=== PATIENT | female | born 1965 | race Caucasian/White ===

== ENCOUNTER 2020-06-24 07:42 | Outpatient (REF) | payer OTHER, SELFPAY | END 2020-06-24 07:43 | disposition home or self-care (01) | LOC: HO.LAB 07:42 | PROVIDERS: Visit Provider Internal Medicine | DX: Z20.828 Contact with and (suspected) exposure to other viral communicable diseases (principal) | CPT/HCPCS: C9803; U0003 ==

== ENCOUNTER 2020-06-27 13:28 | Outpatient (REF) | payer OTHER, SELFPAY ==
[2020-06-27 13:42] LABS: COVID-19 Test Positive (Negative); IDNOW Serial# 55D5AD1C
== END 2020-06-27 13:29 | disposition home or self-care (01) ==
LOC: HO.EMPCOV 13:28
PROVIDERS: Visit Provider Internal Medicine
DX: Z20.828 Contact with and (suspected) exposure to other viral communicable diseases (principal)
CPT/HCPCS: 36415; 87635; C9803

== ENCOUNTER 2020-11-29 14:26 | Outpatient (REF) | payer OTHER, SELFPAY | END 2020-11-29 14:27 | disposition home or self-care (01) | LOC: HO.LAB 14:26 | PROVIDERS: PCP Internal Medicine; Referring Provider Internal Medicine; Visit Provider Obstetrics & Gynecology | DX: N95.0 Postmenopausal bleeding (principal) | CPT/HCPCS: 58100; 88305 ==

== ENCOUNTER → 2020-12-13 15:58 | Outpatient (BNVA) | payer OTHER, SELFPAY | PROVIDERS: PCP Internal Medicine; Visit Provider Obstetrics & Gynecology ==

== ENCOUNTER 2021-01-15 15:14 | Outpatient (REF) | payer OTHER, SELFPAY ==
[2021-01-15 16:44] LABS: MANUAL DIFF FLAG NO
[2021-01-15 16:47] LABS: Basophils Absolute Auto 0.1 X10*3/uL (0.0-0.2); Basophils Percent Auto 0.9 % (0-2); Eosinophils Absolute Auto 0.1 X10*3/uL (0.0-0.4); Eosinophils Percent Auto 1.2 % (0-4); Hemoglobin 9.4 g/dl (12.0-16.0); Imm Gran Abs Auto 0.02 X10*3/uL (0.00-0.03); Imm Gran Pct Auto 0.3 % (0.0-0.4); Lymphocytes Absolute Auto 1.5 X10*3/uL (1.2-4.9); Lymphocytes Percent Auto 25.7 % (20-40); Mean Corpuscular HGB Conc 30.3 g/dl (31.0-35.0); Mean Corpuscular Hemoglobin 22.4 pg (27.0-33.0); Mean Platelet Volume 9.6 fL (9.4-12.3); Monocytes Absolute Auto 0.4 X10*3/uL (0.1-1.2); Monocytes Percent Auto 7.3 % (2-11); Neutrophils Absolute Auto 3.8 X10*3/uL (2.0-8.3); Neutrophils Percent Auto 64.6 % (45-73); Platelet Count 427 X10*3/uL (160-400); Red Blood Count 4.19 X10*6/uL (4.20-5.50); Red Cell Distribution Width 16.7 % (11.0-16.0); White Blood Count 5.9 X10*3/uL (4.8-10.8)
[2021-01-15 16:55] LABS: Estimated Average Glucose 108 mg/dL; Hemoglobin A1c % 5.4 %
[2021-01-15 16:57] LABS: Alanine Aminotransferase 15 U/L (0-31); Albumin Level 4.1 g/dL (3.5-5.0); Alkaline Phosphatase 75 U/L (39-117); Anion Gap 12 (12-20); Aspartate Amino Transferase 19 U/L (5-31); Bilirubin Total 0.2 mg/dL (0.0-1.0); Blood Urea Nitrogen 9 mg/dL (9-16); Calcium 9.1 mg/dL (8.4-10.2); Carbon Dioxide 25 mmol/L (22-29); Chloride 108 mmol/L (96-108); Estimated Glomerular Filt Rate > 60; Glucose Random 100 mg/dL (60-115); Potassium 4.3 mmol/L (3.3-5.1); Sodium 141 mmol/L (135-145); Total Protein 7.1 g/dL (6.5-8.0)
[2021-01-15 17:17] LABS: Free T4 (Free Thyroxine) 0.96 ng/dL (0.71-1.85); Thyroid Stimulating Hormone 0.79 uIU/mL (0.32-4.0)
== END 2021-01-15 15:15 | disposition home or self-care (01) ==
LOC: HO.MANLDS 15:14
PROVIDERS: PCP Internal Medicine; Visit Provider Physician Assistant
DX: G43.909 Migraine, unspecified, not intractable, without status migrainosus (principal)
CPT/HCPCS: 36415; 80053; 83036; 84439; 84443; 85025

== ENCOUNTER 2021-01-18 07:17 | Outpatient (REF) | payer OTHER, SELFPAY ==
--- NOTE | ~2021-01-18 | XR_ITS ---
EXAMINATION: XR CERVICAL SPINE CLINICAL INFORMATION: Cervicalgia. Occipital neuralgia. COMPARISON: None TECHNIQUE: 6 views of the cervical spine, inclusive of flexion and extension views, were obtained. FINDINGS: No abnormal prevertebral soft tissue swelling is seen. There is some mild disc space narrowing noted at the C5-C6 and C6-C7 levels. No acute cervical spine fracture identified. There is some anterior neural foraminal encroachment from spurring of the joints of [place] on the right at the C5-C6 level and on the left at the C5-C6 level. XR/XR cervical spine min 6V IMPRESSION: Cervical spondylosis C5 through C7 as described. No cervical spine fracture or destructive bony lesion.
== END 2021-01-18 07:18 | disposition home or self-care (01) ==
LOC: HO.XRAY 07:17
PROVIDERS: PCP Internal Medicine; Visit Provider Physician Assistant
DX: M54.2 Cervicalgia (principal)
CPT/HCPCS: 72052

== ENCOUNTER 2021-02-13 07:24 | Outpatient (REF) | payer OTHER, SELFPAY ==
--- NOTE | ~2021-02-13 | CT_ITS ---
EXAMINATION: CT HEAD WITHOUT CONTRAST CLINICAL INFORMATION: Migraine. COMPARISON: None TECHNIQUE: Contiguous axial imaging was performed from the skull base to vertex without intravenous administration of contrast. Coronal and sagittal reformatted images were obtained. This CT examination was performed using dose optimization techniques as appropriate, variously including the following: *Automated exposure control *Adjustment of mA and/or kV according to patient size (this includes techniques or standardized protocols for targeted exams where dose is matched to indication/reason for exam; i.e. extremities or head) *Use of iterative reconstruction technique DLP: 7:30 mGy-cm FINDINGS: There is no evidence of acute intracranial hemorrhage or territorial infarction. No abnormal mass effect or midline shift is seen. Mario to white matter differentiation is well preserved. No extra-axial fluid collections are identified. The ventricles are normal in size. There is no abnormal attenuation within the brain parenchyma. The osseous structures and soft tissues are normal. The mastoid air cells and visualized portions of the paranasal sinuses are well aerated. CT/CT head/brain wo con IMPRESSION: No acute intracranial pathology.
== END 2021-02-13 07:25 | disposition home or self-care (01) ==
LOC: HO.CT 07:24
PROVIDERS: PCP Internal Medicine; Visit Provider Physician Assistant
DX: G43.909 Migraine, unspecified, not intractable, without status migrainosus (principal)
CPT/HCPCS: 70450

== ENCOUNTER 2021-02-16 15:46 | Outpatient (REF) | payer OTHER, SELFPAY ==
--- NOTE | ~2021-02-16 | MM_ITS ---
EXAMINATION: MM SCREENING DIGITAL BREAST TOMOSYNTHESIS, BILATERAL CLINICAL INFORMATION: Screening. Asymptomatic. The lifetime risk of breast cancer based on the Tyrer-Cuzick Model is 10%. COMPARISON: Mammography: 01/21/2020, 11/18/2018, 11/13/2017 TECHNIQUE: Digital breast tomosynthesis is performed in both the craniocaudal and mediolateral oblique views along with computer-aided detection (CAD). Synthesized 2D images are generated from the tomosynthesis. FINDINGS: There are scattered areas of fibroglandular density (ACR BI-RADS breast composition Category b). There are fibrocystic changes in the bilateral outer quadrants, overall decreased since 2018. There is no interval dominant mass or architectural abnormality or developing density. No abnormal calcifications. The bilateral axilla and skin contours are unremarkable. MM/MM tomosynthesis screening BI IMPRESSION: No significant changes from prior exams. ASSESSMENT: BI-RADS 2: Benign RECOMMENDATION: Routine annual mammography screening. This patient's information was entered into a reminder system with a target due date for their next mammogram.
== END 2021-02-16 15:47 | disposition home or self-care (01) ==
LOC: HO.MAMMO 15:46
PROVIDERS: Visit Provider Internal Medicine
DX: Z12.31 Encounter for screening mammogram for malignant neoplasm of breast (principal)
CPT/HCPCS: 77063; 77067

== ENCOUNTER 2021-03-15 07:52 | Outpatient (REF) | payer OTHER, SELFPAY ==
--- NOTE | ~2021-03-15 | US_ITS ---
EXAMINATION: US ABDOMEN COMPLETE CLINICAL INFORMATION: Right upper quadrant pain. COMPARISON: Ultrasound abdomen complete 02/15/2015. TECHNIQUE: Real-time imaging of the abdominal viscera. FINDINGS: PANCREAS: Normal. ABDOMINAL AORTA: The proximal, mid, and distal segments are normal in caliber. INFERIOR VENA CAVA: Visualized portions are normal. LIVER: Normal. The liver is normal in size. The liver contour is normal. Parenchymal echogenicity is normal. No focal hepatic lesion. There is no intrahepatic biliary duct dilatation seen. GALLBLADDER: Normal. The gallbladder is physiologically distended without evidence of stones, sludge, polyps, wall thickening or pericholecystic fluid. COMMON BILE DUCT: Normal in caliber measuring 0.3 cm in diameter. RIGHT KIDNEY: Normal. No hydronephrosis. No renal calculi or focal parenchymal lesions. The kidney measures 11.4 cm in maximum dimension. LEFT KIDNEY: Normal. No hydronephrosis. No renal calculi or focal parenchymal lesions. The kidney measures 12.2 cm in maximum dimension. SPLEEN: Normal. The spleen measures 13.2 cm in maximum dimension. FREE FLUID: None. US/US abdomen complete IMPRESSION: Unremarkable abdominal ultrasound.
== END 2021-03-15 07:53 | disposition home or self-care (01) ==
LOC: HO.US 07:52
PROVIDERS: PCP Internal Medicine; Visit Provider Physician Assistant
DX: R10.11 Right upper quadrant pain (principal)
CPT/HCPCS: 76700

== ENCOUNTER 2021-05-29 07:00 | Outpatient (RCR) | payer OTHER, SELFPAY | END 2021-07-19 14:51 | disposition home or self-care (01) | LOC: HO.PT 07:00 | PROVIDERS: Visit Provider Physician Assistant | DX: M50.30 Other cervical disc degeneration, unspecified cervical region (principal) | CPT/HCPCS: 95992; 97012; 97014; 97035; 97110; 97140; 97162; 97530 ==

== ENCOUNTER 2021-09-03 08:00 | Outpatient (RCR) | payer OTHER, SELFPAY ==
--- NOTE | 2021-08-31 11:49 | MHC.PT.EP ---
[facility] [place] [facility] [place] [facility] [place] Office [address] [phone] F: [phone] F: [phone] F: [phone] F: [phone] Physical Therapy Plan of Care Date of Evaluation: Date of Surgery: Diagnosis: VERTIGO Assessment: GARLAND IS A PLEASANT 56 YO FEMALE WHO RETURNS TO US WITH EXACERBATION OF VERTIGO. UPON EXAM SHE DEMONSTRATES (+) STEPHANIE-HALPIKE FOR LEFT POSTERIOR CANAL WITH NEGATIVE RETESTING AFTER CRM. FUNCTIONAL LIMITATIONS INCLUDE DECREASED ABILITY TO DRIVE, WALK QUICKLY, TURN HEAD AND BODY RAPIDS, DECREASED ABILITY TO PERFORM HIGHER DEMAND HOMEMAKING TASKS. Frequency and Duration: The patient will be seen 2 X WEEK FOR 4 WEEKS Short Term Goals: 1. 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 I with HEP 2. Improve DGI to 20/24 3. Pt to be able to functionally move in all planes without provocation of dizziness and return to PLOF in 4 weeks 4. Pt to be educated on sx and indications to return to therapy when needed Treatment Plan: Modalities to reduce pain, spasms and effusion. Manual therapy to restore motion and function. Therapeutic exercise to improve strength and flexibility. Neuromuscular re-education for posture and balance. Therapeutic activities to return to functional activities of daily living. Electronically signed by: CAITLIN OSMAN PT, DPT Please sign and return to therapist. Thank you for your referral.
== END 2021-11-05 13:44 | disposition home or self-care (01) ==
LOC: HO.PT 08:00
PROVIDERS: Visit Provider Physician Assistant
DX: R42 Dizziness and giddiness (principal)
CPT/HCPCS: 95992; 97110; 97112; 97161

== ENCOUNTER 2021-11-06 05:02 | Emergency (ER) | payer OTHER, SELFPAY ==
--- NOTE | ~2021-11-06 | XR_ITS ---
EXAMINATION: XR CHEST CLINICAL INFORMATION: Chest pain COMPARISON: 08/13/2019 TECHNIQUE: Frontal view of the chest was obtained. FINDINGS: The lungs are well expanded. There is no focal consolidation, edema, or effusion. No pneumothorax. The cardiomediastinal silhouette is within normal limits. No acute osseous abnormality. XR/XR chest 1V IMPRESSION: No acute pulmonary finding.
--- NOTE | 2021-11-06 05:05 | ECG_ITS ---
Test Reason : chest pain Blood Pressure : / mmHG Vent. Rate : 071 BPM Atrial Rate : 071 BPM P-R Int : 160 ms QRS Dur : 074 ms QT Int : 374 ms P-R-T Axes : 053 016 025 degrees QTc Int : 406 ms Normal sinus rhythm Normal ECG When compared with ECG of 19-APR-2019 06:46, No significant change was found Referred By: Generic ED Physician Electronically Signed By:SUHA HUGHES
[2021-11-06 05:23] VITALS: BP 148/92; PULSE 74; RESP 18; TEMP 36.7; O2SAT 97; BMI 33.2
[2021-11-06 05:55] VITALS: BP 125/76; PULSE 68; RESP 15; TEMP 36.7; O2SAT 98
[2021-11-06 06:12] LABS: MANUAL DIFF FLAG NO
[2021-11-06 06:13] LABS: Basophils Absolute Auto 0.1 X10*3/uL (0.0-0.2); Eosinophils Absolute Auto 0.1 X10*3/uL (0.0-0.4); Eosinophils Percent Auto 0.8 % (0-4); Hematocrit 36.2 % (37.0-47.0); Hemoglobin 12.3 g/dl (12.0-16.0); Imm Gran Abs Auto 0.02 X10*3/uL (0.00-0.03); Imm Gran Pct Auto 0.3 % (0.0-0.4); Lymphocytes Absolute Auto 1.4 X10*3/uL (1.2-4.9); Lymphocytes Percent Auto 23.3 % (20-40); Mean Corpuscular Hemoglobin 27.7 pg (27.0-33.0); Mean Corpuscular Volume 81.5 fL (80.0-98.0); Mean Platelet Volume 9.2 fL (9.4-12.3); Monocytes Absolute Auto 0.6 X10*3/uL (0.1-1.2); Monocytes Percent Auto 9.3 % (2-11); Neutrophils Absolute Auto 3.9 x10*3/uL (2.0-8.3); Neutrophils Percent Auto 65.3 % (45-73); Platelet Count 327 X10*3/uL (160-400); Red Blood Count 4.44 X10*6/uL (4.20-5.50); Red Cell Distribution Width 13.2 % (11.0-16.0); White Blood Count 5.9 X10*3/uL (4.8-10.8)
[2021-11-06 06:25] LABS: Anion Gap 12 (12-20); Blood Urea Nitrogen 9 mg/dL (9-16); Calcium 9.3 mg/dL (8.4-10.2); Carbon Dioxide 24 mmol/L (22-29); Chloride 107 mmol/L (96-108); Creatinine Clr Calc Pharmacy 103.7; Estimated Glomerular Filt Rate > 60; Glucose Random 107 mg/dL (60-115); Potassium 4.2 mmol/L (3.3-5.1); Sodium 139 mmol/L (135-145)
[2021-11-06 06:32] LABS: Troponin-I High Sensitivity < 3.5 ng/L (<3.5-17.0)
[2021-11-06 07:29] VITALS: BP 130/54; PULSE 60; RESP 18; TEMP 36.5; O2SAT 97
--- NOTE | 2021-11-06 07:32 | PC.NURSE ---
Pt reports weeks of itermittent left sided cp. non radiating. correlates with decreased hr into 50's. pitting edema when standing only. ls cta. no pitting edema at this time. unlabored resp. skin pwd. nsr on monitor. doc corvi at bedside..
--- NOTE | 2021-11-06 07:45 | ED_ITS ---
HPI - Chest Pain General Chief Complaint: Chest Pain Stated Complaint: chest pain, low pulse Time Seen by Provider: 11/06/21 07:35 Source: patient Mode of arrival: ambulatory Limitations: no limitations History of Present Illness HPI narrative: this is a 56 years old female presented to the ED with a chief complaint chest pain for about 3 weeks , the pain is intermittent when comes last for few seconds to few minutes, the pain is not exertional. Patient also is complaining of that she has a low heart rate, but there is no syncope or near syncopal episode and she takes beta-fiordaliza. MD complaint: chest pain Onset (ago): week(s) (3) Timing of current episode: episodic Prior episodes: Yes Onset: during rest Pain location: substernal Pain radiation: none Quality: dull Relieving factors: nothing Exacerbating factors: nothing Associated symptoms: nausea Risk Factors Coronary artery disease risk factors: none Related Data Home Medications Medication Instructions Recorded Confirmed amlodipine 5 mg tablet 10 mg PO DAILY 11/29/20 08/21/21 atenolol 50 mg tablet 50 mg PO BID 11/29/20 08/21/21 fluticasone propionate 110 1 puff INHALATION DAILY 11/29/20 08/21/21 mcg/actuation HFA aerosol inhaler omeprazole 40 mg capsule,delayed 40 mg PO DAILY 11/29/20 08/21/21 release ferrous sulfate 325 mg PO 3XW 08/21/21 08/21/21 Allergies Allergy/AdvReac Type Severity Reaction Status Date / Time fentanyl [FENTANYL] Allergy Severe NAUSEA AND Verified 02/19/21 08:11 VOMITING-SEVERE, nausea and vomiting meperidine [From DEMEROL] Allergy Severe SEVERE N/V Verified 02/19/21 08:11 Sulfa (Sulfonamide Allergy Mild HIVES Verified 02/19/21 08:11 Antibiotics) [Sulfa (Sulfonamides)] scopolamine [SCOPOLAMINE] AdvReac Severe SEVERE Verified 02/19/21 08:11 BALANCE ISSUES Sulf-10 Allergy Unknown rash Uncoded 02/19/21 08:11 Review of Systems Constitutional: Constitutional: Reports no additional constitutional complaints Eyes: Eyes: Reports no additional eye complaints ENT: Reports system reviewed and no additional complaints, except as documented Cardiovascular: Cardiovascular: Reports no additional cardiovascular complaints Respiratory: Respiratory: Reports as per HPI and Reports no additional respiratory complaints Gastrointestinal: Gastrointestinal: Reports no additional gastrointestinal complaints Genitourinary: Genitourinary: Reports no additional female genitourinary complaints Neurologic: Reports system reviewed and no additional complaints, except as documented PMFSH Past Medical History Medical History Asthma GERD (gastroesophageal reflux disease) Hypertension IBS (irritable bowel syndrome) Surgical History H/O dilation and curettage Family History Family History Father Hypertension Father Heart abnormality Mother Alzheimer disease Social History Social History Alcohol intake: current Alcohol intake frequency: holidays/special occasions only Alcohol type: hard liquor Patient Tobacco Use Status: Never used Tobacco Use of substances other than those prescribed or required for medical reasons: No Advance Directives: No Physical Exam Vital Signs: Vital Signs: Last Vital Signs Temp 97.7 F 11/06/21 07:29 Pulse 60 11/06/21 07:29 Resp 18 11/06/21 07:29 BP 130/54 L 11/06/21 07:29 Pulse Ox 97 11/06/21 07:29 BMI result Body Mass Index 33.2 Const: General: cooperative, healthy appearing and comfortable Nutritional Appearance: average body habitus and well nourished Orientation/co nsciousness: patient oriented x3 HEENT: Head: Yes normal to inspection Ears: hearing grossly normal bilater ally General nose exam: Normal external nose present Face and sinus: Yes normal facial exam Mouth: Normal oral and palatal mucosa present Neck: Neck: Yes normal visual inspection, Yes full ROM and Yes no lymphadenopathy Thyroid: Thyroid normal Chest: Chest palpation & inspection: normal inspection of the chest Resp: Effort & Inspection: normal respiratory effort and able to speak in complete sentences Auscultation: clear to auscultation bilaterally Cardio: Jugular venous distension: no JVD Rate: regular rate Rhythm: regular rhythm GI: Inspection: Yes normal to inspection Palpation (GI): Soft to palpation, not firm, nontender and no guarding Skin: General skin exam: no rashes or lesions noted and elasticity normal Rashes: no rashes Neuro: General: patient oriented x3 Extrem: General: Yes normal to inspection, Yes full ROM, Yes capillary refill normal and Yes normal exam except as noted Course Reevaluation(s) Reevaluation #1: delta troponin is negative after weeks of chest pain at this point I think the patient can be discharged home . 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 Result diagrams: 11/06/21 06:05 11/06/21 06:05 Labs: Lab Results 11/06/21 11/06/21 11/06/21 Range/Units 06:05 06:05 06:05 WBC 5.9 (4.8-10.8) X10*3/uL RBC 4.44 (4.20-5.50) X10*6/uL Hgb 12.3 (12.0-16.0) g/dl Hct 36.2 L (37.0-47.0) % MCV 81.5 (80.0-98.0) fL MCH 27.7 (27.0-33.0) pg MCHC 34.0 (31.0-35.0) g/dl RDW 13.2 (11.0-16.0) % Plt Count 327 (160-400) X10*3/uL MPV 9.2 L (9.4-12.3) fL Immature Gran % (Auto) 0.3 (0.0-0.4) % Neut % (Auto) 65.3 (45-73) % Lymph % (Auto) 23.3 (20-40) % [place] % (Auto) 9.3 (2-11) % Eos % (Auto) 0.8 (0-4) % Baso % (Auto) 1.0 (0-2) % Lymph # (Auto) 1.4 (1.2-4.9) X10*3/uL [place] # (Auto) 0.6 (0.1-1.2) X10*3/uL Eos # (Auto) 0.1 (0.0-0.4) X10*3/uL Baso # (Auto) 0.1 (0.0-0.2) X10*3/uL Abs Immat Gran (auto) 0.02 (0.00-0.03) X10*3/uL Absolute Neuts (auto) 3.9 (2.0-8.3) x10*3/uL Absolute Nucleated RBC 0.000 (0.0-0.012) X10*3/uL Nucleated RBC % (auto) 0.0 (0.0-0.2) /100WBC Sodium 139 (135-145) mmol/L Potassium 4.2 (3.3-5.1) mmol/L Chloride 107 (96-108) mmol/L Carbon Dioxide 24 (22-29) mmol/L Anion Gap 12 (12-20) BUN 9 (9-16) mg/dL Creatinine 0.68 (0.5-1.4) mg/dL Estim Creat Clear Calc 103.7 Estimated GFR > 60 Random Glucose 107 (60-115) mg/dL Calcium 9.3 (8.4-10.2) mg/dL Troponin I High Sens < 3.5 (<3.5-17.0) ng/L 11/06/21 Range/Units 07:56 WBC (4.8-10.8) X10*3/uL RBC (4.20-5.50) X10*6/uL Hgb (12.0-16.0) g/dl Hct (37.0-47.0) % MCV (80.0-98.0) fL MCH (27.0-33.0) pg MCHC (31.0-35.0) g/dl RDW (11.0-16.0) % Plt Count (160-400) X10*3/uL MPV (9.4-12.3) fL Immature Gran % (Auto) (0.0-0.4) % Neut % (Auto) (45-73) % Lymph % (Auto) (20-40) % [place] % (Auto) (2-11) % Eos % (Auto) (0-4) % Baso % (Auto) (0-2) % Lymph # (Auto) (1.2-4.9) X10*3/uL [place] # (Auto) (0.1-1.2) X10*3/uL Eos # (Auto) (0.0-0.4) X10*3/uL Baso # (Auto) (0.0-0.2) X10*3/uL Abs Immat Gran (auto) (0.00-0.03) X10*3/uL Absolute Neuts (auto) (2.0-8.3) x10*3/uL Absolute Nucleated RBC (0.0-0.012) X10*3/uL Nucleated RBC % (auto) (0.0-0.2) /100WBC Sodium (135-145) mmol/L Potassium (3.3-5.1) mmol/L Chloride (96-108) mmol/L Carbon Dioxide (22-29) mmol/L Anion Gap (12-20) BUN (9-16) mg/dL Creatinine (0.5-1.4) mg/dL Estim Creat Clear Calc Estimated GFR Random Glucose (60-115) mg/dL Calcium (8.4-10.2) mg/dL Troponin I High Sens < 3.5 (<3.5-17.0) ng/L ECG Data ECG #1: Interpretation: Normal sinus rhythm rate is [address]-T changes Discharge Plan Discharge Clinical Impression: Chest pain Patient Disposition: Home, Self-Care Instructions: Chest Pain (DC) Additional Instructions: follow-up with Dr Morales return if you worse any concern Prescriptions: No Action ferrous sulfate 325 mg PO 3XW 0RF amlodipine 5 mg tablet 10 mg PO DAILY 0RF atenolol 50 mg tablet 50 mg PO BID 0RF omeprazole 40 mg capsule,delayed release(DR/EC) 40 mg PO DAILY 0RF Flovent HFA 110 mcg/actuation HFA aerosol inhaler 1 puff inhalation DAILY 0RF Referrals: Gus Morales MD [Physician] - Stand Alone Forms: Work/School Release
[2021-11-06 08:23] LABS: Troponin-I High Sensitivity < 3.5 ng/L (<3.5-17.0)
[2021-11-06 09:30] VITALS: BP 125/58; PULSE 60; RESP 18; O2SAT 98
== END 2021-11-06 09:41 | disposition home or self-care (01) ==
PROVIDERS: Emergency Provider Emergency Medicine; PCP Internal Medicine
DX: R07.89 Other chest pain (principal); R11.2 Nausea with vomiting, unspecified; Z79.899 Other long term (current) drug therapy
CPT/HCPCS: 36415; 71045; 80048; 84484; 85025; 93005; 99283; 99284

== ENCOUNTER → 2021-11-08 13:05 | Outpatient (BNVA) | payer OTHER, SELFPAY | PROVIDERS: PCP Internal Medicine; Visit Provider Nurse Practitioner Family | DX: R07.9 Chest pain, unspecified (principal) ==

== ENCOUNTER → 2021-11-14 07:50 | Outpatient (REF) | payer OTHER, SELFPAY ==
--- NOTE | 2021-11-14 07:58 | CA_ITS ---
Acquisition Time: 2021-11-14 08:33:22 Total Exercise Time: 00:06:14 Test Indications: cp Medications: see chart Protocol: STEPHANIE Max HR: 150 BPM 92% of Pred: 162 BPM Max BP: 148/082 mmHG Max Work Load: 7.3 METS Exercise stress test with exercise 6 min 14 sec of Stephanie protocol, achieving 93% MPHR, with mild to moderate shortness of breath, with Less than 1/10 Left chest discomfort at baseline which resolved with exercise, with isolated PACs, with normotensive response to exercise, without EKG changes meeting criteria for ischemia. In recovery her breathing improved quickly. Test reviewed [facility] Dr Vieyra. Referred By: Grace Collier Overread By: GRACE COLLIER
== END ==
LOC: HO.CARD 07:50
PROVIDERS: PCP Internal Medicine; Visit Provider Nurse Practitioner Family
DX: R07.9 Chest pain, unspecified (principal)
CPT/HCPCS: 93017

== ENCOUNTER → 2021-11-20 06:58 | Outpatient (REF) | payer OTHER, SELFPAY ==
--- NOTE | 2021-11-20 07:01 | HM_ITS ---
Conclusion: 1. Patient was monitored for total period of 1 day and 12 hours 2. Baseline was normal sinus rhythm with average heart of 76 beats per minute 3. No significant pauses or bradycardia noted 4. Total of 28 PACs accounting for 0.01% of total beats accounting for very rare PACs 5. No patient reported events MTDD
== END ==
LOC: HO.CARD 06:58
PROVIDERS: PCP Internal Medicine; Visit Provider Nurse Practitioner Family
DX: R07.9 Chest pain, unspecified (principal)
CPT/HCPCS: 93242

== ENCOUNTER 2021-12-27 08:23 | Outpatient (REF) | payer OTHER, SELFPAY | END 2021-12-27 08:24 | disposition home or self-care (01) | LOC: HO.LAB 08:23 | PROVIDERS: Visit Provider Obstetrics & Gynecology | DX: Z01.419 Encounter for gynecological examination (general) (routine) without abnormal findings (principal); N95.0 Postmenopausal bleeding; N84.1 Polyp of cervix uteri | CPT/HCPCS: 57500; 88305 ==

== ENCOUNTER 2022-02-18 12:52 | Outpatient (REF) | payer OTHER, SELFPAY ==
--- NOTE | ~2022-02-18 | US_ITS ---
EXAMINATION: US PELVIS COMPLETE US PELVIS ENDOVAGINAL CLINICAL INFORMATION: Postmenopausal bleeding COMPARISON: None. TECHNIQUE: Transabdominal and transvaginal images of the pelvis were obtained. FINDINGS: UTERUS: Anteverted. Normal size and contour, measuring 9.6 x 4.9 x 5.5 cm (cervix to fundus x AP x transverse). The endometrium is ill-defined and thickened to 1.3 cm. Well-defined 1.1 cm hypoechoic structure in the right uterine body is consistent with intramural leiomyoma. Incidentally noted nabothian cysts in the cervix. RIGHT OVARY: Normal size and echogenicity measuring 1.8 x 1.3 x 1.7 cm. LEFT OVARY: Normal size and echogenicity measuring 2.8 x 2.2 x 2.3 cm. There is a 2.0 cm benign simple cyst in the left ovary. No follow-up imaging recommended. FREE FLUID: No pelvic free fluid. US/US pelvic and transvaginal IMPRESSION: Thickened, ill-defined endometrium measures 1.3 cm in diameter. In the setting of postmenopausal bleeding, correlation with endometrial biopsy is recommended.
== END 2022-02-18 12:53 | disposition home or self-care (01) ==
LOC: HO.US 12:52
PROVIDERS: Visit Provider Obstetrics & Gynecology
DX: N95.0 Postmenopausal bleeding (principal)
CPT/HCPCS: 76830; 76856

== ENCOUNTER 2022-02-20 15:36 | Outpatient (REF) | payer OTHER, SELFPAY ==
--- NOTE | ~2022-02-20 | MM_ITS ---
EXAMINATION: MM SCREENING DIGITAL BREAST TOMOSYNTHESIS, BILATERAL CLINICAL INFORMATION: Screening. Asymptomatic. The lifetime risk of breast cancer based on the Tyrer-Cuzick Model is 9%. COMPARISON: Mammography: 02/16/2021, 01/21/2020, 11/18/2018, 11/13/2017 TECHNIQUE: Digital breast tomosynthesis is performed in both the craniocaudal and mediolateral oblique views along with computer-aided detection (CAD). Synthesized 2D images are generated from the tomosynthesis. Additional right CC view is provided. FINDINGS: There are scattered areas of fibroglandular density (ACR BI-RADS breast composition Category b). Parenchymal pattern is similar to prior studies. No significant mass. No abnormal calcifications. There is no developing density or architectural abnormality. The axilla and skin contours are unremarkable. No significant changes. MM/MM tomosynthesis screening BI IMPRESSION: No mammographic evidence of malignancy. ASSESSMENT: BI-RADS 1: Negative RECOMMENDATION: Routine annual mammography screening. This patient's information was entered into a reminder system with a target due date for their next mammogram.
== END 2022-02-20 15:37 | disposition home or self-care (01) ==
LOC: HO.MAMMO 15:36
PROVIDERS: Visit Provider Obstetrics & Gynecology
DX: Z12.31 Encounter for screening mammogram for malignant neoplasm of breast (principal)
CPT/HCPCS: 77063; 77067

== ENCOUNTER 2022-03-04 16:09 | Outpatient (REF) | payer OTHER, SELFPAY | END 2022-03-04 16:10 | disposition home or self-care (01) | LOC: HO.LNP 16:09 | PROVIDERS: PCP Internal Medicine; Visit Provider Obstetrics & Gynecology | DX: N95.0 Postmenopausal bleeding (principal) | CPT/HCPCS: 58100; 88305 ==

== ENCOUNTER 2022-04-05 08:49 | Day surgery (SDC) | payer OTHER, SELFPAY ==
--- NOTE | 2022-04-04 10:25 | P.CONAN_ITS ---
Documented by User: Tammie Gardner NP 04/04/22 10:31 HPI - Anesthesia Eval Consult details Narrative: 56yo F for D&C Hysteroscopy,poss polypectomy,poss myomectomy Severe N/V with fentanyl and allergy to scopolamine - Order in for IV Acetaminophen Cardiac w/u 10/2021 [facility] Active Problems Active Problems: All Active Problems (Updated 03/27/22 @ 11:17 by River Alcantara MD) Endocervical polyp (Acute) Edema (Acute) Slow pulse (Acute) Chest pain (Acute) Iron deficiency anemia (Chronic) Acute sinusitis (Acute) Postmenopausal bleeding (Acute) Well woman exam (Acute) Past Medical History Medical History Asthma GERD (gastroesophageal reflux disease) Hypertension IBS (irritable bowel syndrome) Family History Family History Father Hypertension Father Heart abnormality Mother Alzheimer disease Surgical History Surgical History H/O dilation and curettage Social History Social History Household Members: Significant Other Housing: House Alcohol intake: current Alcohol intake frequency: holidays/special occasions only Alcohol type: hard liquor Patient Tobacco Use Status: Never used Tobacco Use of substances other than those prescribed or required for medical reasons: No Are you DNR?: No Advance Directives: No Advance Directives Information Provided: Yes Sexual orientation: Straight/Heterosexual Gender identity: Female Meds Allergies Allergy/AdvReac Type Severity Reaction Status Date / Time fentanyl [FENTANYL] Allergy Severe NAUSEA AND Verified 04/05/22 09:26 VOMITING-SEVERE, nausea and vomiting meperidine [From DEMEROL] Allergy Severe SEVERE N/V Verified 04/05/22 09:26 Sulfa (Sulfonamide Allergy Mild HIVES Verified 04/05/22 09:26 Antibiotics) [Sulfa (Sulfonamides)] scopolamine [SCOPOLAMINE] AdvReac Severe SEVERE Verified 04/05/22 09:26 BALANCE ISSUES Home Medications Medication Instructions Recorded Confirmed Last Taken Type atenolol 50 mg tablet 50 mg PO BID 11/29/20 04/05/22 04/05/22 07:00 History fluticasone propionate 110 1 puff inhalation DAILY 11/29/20 04/05/22 Unknown History mcg/actuation HFA aerosol inhaler omeprazole 40 mg capsule,delayed 40 mg PO DAILY 11/29/20 04/05/22 Unknown History release albuterol sulfate 90 mcg/actuation 2 puff PO Q4H 11/08/21 04/05/22 Unknown History aerosol inhaler amlodipine 10 mg tablet 10 mg PO DAILY 11/08/21 04/05/22 04/05/22 07:00 History Exam Exam Date and Time: April 04, 2022 1025 Pertinent Lab Results Pertinent Lab Results: Laboratory Tests 11/06/21 11/06/21 06:05 06:05 WBC 5.9 Hgb 12.3 Hct 36.2 L Plt Count 327 Sodium 139 Potassium 4.2 Chloride 107 Carbon Dioxide 24 BUN 9 Creatinine 0.68 Narrative Narrative: EKG 10/2021 Vent. Rate : 071 BPM ? ? Atrial Rate : 071 BPM ?? P-R Int : 160 ms? QRS Dur : 074 ms ? ? QT Int : 374 ms ? ? ? P-R-T Axes : 053 016 025 degrees ?? QTc Int : 406 ms ? Normal sinus rhythm Normal ECG When compared with ECG of 19-APR-2019 06:46, No significant change was found Exercise Stress 10/2021 Protocol: NICK ? Max HR: 150 BPM? 92% of? Pred: 162 BPM Max BP: 148/082 mmHG Max Work Load: 7.3 METS ? Exercise stress test with exercise 6 min 14 sec of Nick protocol, achieving 93% ?MPHR, with mild to moderate shortness of breath, with? Less than 1/10 Left ?chest discomfort at baseline which resolved with exercise, with isolated PACs, ?with normotensive response to exercise, without EKG changes meeting criteria ?for ischemia. In recovery her breathing improved quickly. Test reviewed [facility] Dr Anderson. 24 hour Holter 10/2021 Conclusion: 1. Patient was monitored for total period of 1 day and 12 hours 2. Baseline was normal sinus rhythm with average heart of 76 beats per minute 3. No significant pauses or bradycardia noted 4. Total of 28 PACs accounting for 0.01% of total beats accounting for very rare PACs 5. No patient reported events Assessment and Plan Assessment Anesthesia Assessment: Chart Reviewed Documented by User: Errol Doran MD 04/05/22 10:35 PMFSH Past Medical History Medical History Asthma GERD (gastroesophageal reflux disease) Hypertension IBS (irritable bowel syndrome) Functional capacity: independent ambulation Family History Family History Father Hypertension Father Heart abnormality Mother Alzheimer disease Family history of problems with anesthesia: Yes (PONV) Surgical History Surgical History H/O dilation and curettage History of Problems with Anesthesia: Yes (Severe PONV) Social History Social History Household Members: Significant Other Housing: House Alcohol intake: current Alcohol intake frequency: holidays/special occasions only Alcohol type: hard liquor Patient Tobacco Use Status: Never used Tobacco Use of substances other than those prescribed or required for medical reasons: No Are you DNR?: No Advance Directives: No Advance Directives Information Provided: Yes Sexual orientation: Straight/Heterosexual Gender identity: Female Meds Allergies Allergy/AdvReac Type Severity Reaction Status Date / Time fentanyl [FENTANYL] Allergy Severe NAUSEA AND Verified 04/05/22 09:26 VOMITING-SEVERE, nausea and vomiting meperidine [From DEMEROL] Allergy Severe SEVERE N/V Verified 04/05/22 09:26 Sulfa (Sulfonamide Allergy Mild HIVES Verified 04/05/22 09:26 Antibiotics) [Sulfa (Sulfonamides)] scopolamine [SCOPOLAMINE] AdvReac Severe SEVERE Verified 04/05/22 09:26 BALANCE ISSUES Home Medications Medication Instructions Recorded Confirmed Last Taken Type atenolol 50 mg tablet 50 mg PO BID 11/29/20 04/05/22 04/05/22 07:00 History fluticasone propionate 110 1 puff inhalation DAILY 11/29/20 04/05/22 Unknown Hi story mcg/actuation HFA aerosol inhaler omeprazole 40 mg capsule,delayed 40 mg PO DAILY 11/29/20 04/05/22 Unknown History release albuterol sulfate 90 mcg/actuation 2 puff PO Q4H 11/08/21 04/05/22 Unknown History aerosol inhaler amlodipine 10 mg tablet 10 mg PO DAILY 11/08/21 04/05/22 04/05/22 07:00 History Exam Airway Mallampati Class: I TM Dist: >3cm Neck ROM: Full Loose/Missing/Broken Teeth: No Heart: ok Lungs: ok Assessment and Plan Assessment Anesthesia Assessment: Anesthesia Plan Discussed and Chart Reviewed Final Anesthetic Review Family History of Problems with Anesthesia: Yes (PONV) History of Problems with Anesthesia: Yes (Severe PONV) NPO: Yes ASA Class: II Final Preanesthetic Review: No Changes in Pt Med Stat, Meds/Allgs Chart Reviewed, Consent Obtained/Reviewed and Anes Risks/Benef Reviewed Patient Risk: Low Procedure Risk: Low Anesthetic Plan Anesthetic Plan: GA and Agree w/ Assess. and Plan Disposition: Standard PACU
[2022-04-05] VITALS (7 sets, daily range): BP systolic 120–136; BP diastolic 61–78; PULSE 54–67; RESP 16–18; TEMP 36.1–37.3; O2SAT 95–98; BMI 33.0
--- NOTE | 2022-04-05 09:17 | MHC.SHP ---
Pre-Procedural Eval Section A Date of Service: 04/05/22 The patient is an INPATIENT: No Changes since office visit: No Cold of Flu in the past 2 weeks, No New Medical Problems, No Changes in Medication and No Patient answered all questions The History & Physical has been completed within 30 days and I have reviewed it.: Yes Section B Chief Complaint: Postmenopausal bleeding Allergies: Allergies Allergy/AdvReac Type Severity Reaction Status Date / Time fentanyl [FENTANYL] Allergy Severe NAUSEA AND Verified 03/04/22 11:26 VOMITING-SEVERE, nausea and vomiting meperidine [From DEMEROL] Allergy Severe SEVERE N/V Verified 03/04/22 11:26 Sulfa (Sulfonamide Allergy Mild HIVES Verified 03/04/22 11:26 Antibiotics) [Sulfa (Sulfonamides)] scopolamine [SCOPOLAMINE] AdvReac Severe SEVERE Verified 03/04/22 11:26 BALANCE ISSUES Plan Diagnosis/Plan: Unchanged I have reviewed the history and physical and performed a pertinent physical examination on my patient. No changes have occurred unless specified.
[2022-04-05 09:32] LABS: UPreg QC Valid YES; Urine Pregnancy NEGATIVE (NEGATIVE)
[2022-04-05] MEDS: Lactated Ringers 1,000 ML 100 ML IVCONT (10:04)
--- NOTE | 2022-04-05 11:13 | P.BOP_ITS ---
Brief Operative Note Date of Service: 04/05/22 Pre-op diagnosis: Postmenopausal bleeding, endometrial polyp on EMB pathology Post-op diagnosis: same (Normal uterine cavity/endocervical cannot with no evidence of polyps) Procedure: Hysteroscopy D&C Surgeon: River Alcantara MD Anesthesia: GLMA Was an Firmware Engineer used for this Procedure?: No Estimated blood loss (mL): 0 Pathology: other (Endometrial Scrapping.) Condition: stable Disposition: PACU
--- NOTE | 2022-04-05 11:14 | W.PM.OPN ---
Operative Note Operative Note Date of Service: 04/05/22 Narrative: Preop Diagnosis: Post Menopausal bleeding with evidence of endometrial polyp features on EMB pathology Operation: Diagnostic Hysteroscopy, Dilataion & Curettage Post Op Diagnosis: Normal endometrial cavity QBL: Minimal Anesthesia: GLMA Surgeon: River Alcantara MD Cage Shift Manager: None Complication: None Pathology: Endometrial Scrapings Procedure: The patient was put in the dorsal lithotomy position, scrubbed, and draped in the usual manner. A sterile speculum was inserted in the patient's vagina. The anterior lip of the cervix was grasped with a single tooth tenaculum. The cervix was dilated up to 5 mm, then the scope was inserted in the patient's uterus. Inspection revealed Normal endometrial cavity. The Myosure Reach device was used; the scope was removed from the endometrial cavity , sharp curettings was carried on with minimal to moderate amount of tissues retrieved. At the end of the procedure, all instruments were taken out of the patient uterine and vaginal cavity. The single tooth tenaculum was removed and homeostasis was assured using pressure,. The patient tolerated the procedure well and was transferred to the PACU in a stable condition.
== END 2022-04-05 12:33 | disposition home or self-care (01) ==
PROVIDERS: Visit Provider Obstetrics & Gynecology
PROC: 0UDB8ZZ Extraction of Endometrium, Via Natural or Artificial Opening Endoscopic (ICD-10-PCS; CPT 58558; principal; 2022-04-05 10:50)
DX: N95.0 Postmenopausal bleeding (principal); N83.292 Other ovarian cyst, left side; N88.8 Other specified noninflammatory disorders of cervix uteri; J45.909 Unspecified asthma, uncomplicated; I10 Essential (primary) hypertension; K21.9 Gastro-esophageal reflux disease without esophagitis; K58.9 Irritable bowel syndrome, unspecified; Z79.51 Long term (current) use of inhaled steroids; Z79.899 Other long term (current) drug therapy; Z88.2 Allergy status to sulfonamides; Z88.8 Allergy status to other drugs, medicaments and biological substances
CPT/HCPCS: 58558; 81025; 88305; J0131; J1100; J1885; J2405; J3010

== ENCOUNTER 2022-06-20 07:46 | Emergency (ER) | payer OTHER, SELFPAY ==
--- NOTE | ~2022-06-20 | CT_ITS ---
EXAMINATION: CT HEAD, CT FACIAL BONES AND CT CERVICAL SPINE WITHOUT CONTRAST. CLINICAL INFORMATION: Fall, head strike. COMPARISON: CT brain 02/13/2021 TECHNIQUE: 5 mm thin axial and reformatted 2 mm thin sagittal and coronal images of brain were obtained without contrast. Subsequently 3 mm thin axial and reformatted 2 mm thin sagittal and coronal images of cervical spine were obtained without contrast. Lastly axial 3 mm thin and reformatted 1.5 mm thin sagittal and coronal images of facial bones were obtained without contrast. DLP [id number]. This CT examination was performed using dose optimization technique as appropriate, variously including the following: Automated exposure control Adjustment of MA and/or KV according to patient size(this includes techniques or standardized protocols for targeted exams where dose is matched to indication/reason for exam; extremities or head. Use of iterative reconstruction techniques. FINDINGS: Brain: There is no acute intra-axial, extra-axial bleed, masses or midline shift. There is no acute infarct in evolution. There is no edema. The corey to white matter difference is maintained normal. The lateral ventricles are symmetrical in size and configuration without enlargement. Bone windows reveal no calvarial abnormality. There is no scalp soft tissue abnormality. Minimal mucoperiosteal thickening in bilateral maxillary sinuses. Rest the paranasal sinuses and mastoid air cells are well-aerated. Cervical spine: There is reversal of cervical lordosis. The vertebral heights and alignment is normal. There is loss of C5-C6 disc height with ventral and posterior spondylosis. Rest the disc heights are normal. The craniovertebral junction and the C1-C2 alignment is normal. Mild periarticular spurring at the C1-C2 alignment is noted. No visible acute fracture, dislocation or subluxation seen the prevertebral and paravertebral soft tissues are normal. The tracheal airway is widely patent. The lung apices are clear. Facial bones: There is no visible maxillofacial, nasal or mandibular fractures. Bilateral TM joints are symmetrical. Minimal mucoperiosteal bilateral maxillary sinuses seen.. The maxillofacial soft tissues are normal. CT/CT cervical spine wo IV con IMPRESSION: No acute intracranial process seen. There is no acute fracture or dislocation cervical spine except for mild reversal of cervical lordosis likely spasm. There is degenerative disc changes C5-C6 disc level with spondylosis. There is no acute maxillofacial, nasal or mandibular fracture. The soft tissues are unremarkable.
--- NOTE | ~2022-06-20 | XR_ITS ---
EXAMINATION: XR HAND, LEFT CLINICAL INFORMATION: Fall, bruising. COMPARISON: None TECHNIQUE: PA, lateral, and oblique views of the left hand. FINDINGS: The bones and soft tissues are normal. No fracture. Alignment is anatomic. Mild reduction in the PIP and DIP joint space is seen without bony erosive changes or spurring. No erosions or soft tissue calcifications. XR/XR hand LT 2V IMPRESSION: Mild degenerative changes PIP and DIP joints. No visible acute fracture or dislocation seen. Especially no fracture left fourth digit.
[2022-06-20 07:58] VITALS: BP 138/79; PULSE 73; RESP 18; TEMP 36.9; O2SAT 96; BMI 32.1
--- NOTE | 2022-06-20 09:06 | ED_ITS ---
HPI - General Adult General Chief complaint: Fall Stated complaint: eye issue Time Seen by Provider: 06/20/22 08:12 Source: patient Mode of arrival: ambulatory Limitations: no limitations History of Present Illness HPI narrative: Patient is a 57 year old assigned female at with a history of anemia presenting to the emergency department today with right eye bruising and left 4th finger bruising. Patient states that 2 days ago she tripped and fell in her drive way, hitting her face. Patient denies any loss of consciousness. Patient states that she was feeling fine but the bruising around her right eye has gotten worse as well as the bruising of the left 4th digit. Patient denies any dizziness, lightheadedness, abdominal pain, nausea, vomiting, fever, chills, blurry vision, double vision, loss of vision, chest pain, difficulty breathing, shortness of breath, back pain, night sweats, pain with urination, increased urinary frequency, increased urinary urgency, blood in her urine or stool, syncope or a near syncopal episode, bowel incontinence, bladder incontinence, bowel retention, bladder retention, or any other complaints at this time. Onset (ago): day(s) (2) Location: eyes (right) Severity: mild Severity scale (1-10): 2 Relieving factors: none Exacerbating factors: none Associated symptoms: denies other symptoms Treatments prior to arrival: none Related Data Home Medications Medication Instructions Recorded Confirmed atenolol 50 mg tablet 50 mg PO BID 11/29/20 04/05/22 fluticasone propionate 110 1 puff inhalation DAILY 11/29/20 04/05/22 mcg/actuation HFA aerosol inhaler omeprazole 40 mg capsule,delayed 40 mg PO DAILY 11/29/20 04/05/22 release albuterol sulfate 90 mcg/actuation 2 puff PO Q4H 11/08/21 04/05/22 aerosol inhaler amlodipine 10 mg tablet 10 mg PO DAILY 11/08/21 04/05/22 Allergies Allergy/AdvReac Type Severity Reaction Status Date / Time fentanyl [FENTANYL] Allergy Severe NAUSEA AND Verified 04/23/22 11:29 VOMITING-SEVERE, nausea and vomiting meperidine [From DEMEROL] Allergy Severe SEVERE N/V Verified 04/23/22 11:29 Sulfa (Sulfonamide Allergy Mild HIVES Verified 04/23/22 11:29 Antibiotics) [Sulfa (Sulfonamides)] scopolamine [SCOPOLAMINE] AdvReac Severe SEVERE Verified 04/23/22 11:29 BALANCE ISSUES Review of Systems Constitutional: Constitutional: Reports no additional constitutional com plaints, Denies chills, Denies fever(s) and Denies night sweats Eyes: Eyes: Reports no additional eye complaints, Denies blurry vision, Denies change in vision, Denies diplopia, Denies eye discharge, Denies loss of vision and Denies eye pain Comments: bruising surrounding the right eye ENT: Denies dizziness Cardiovascular: Cardiovascular: Reports no additional cardiovascular complaints, Denies chest pain, Denies lightheadedness, Denies Loss of Consciousness and Denies dyspnea Respiratory: Respiratory: Reports no additional respiratory complaints and De nies dyspnea Gastrointestinal: Gastrointestinal: Reports no additional gastrointestinal complaints, Denies abdominal pain, Denies melena, Denies hematochezia, Denies change in bowel habits and Denies change in stool character Genitourinary: Genitourinary: Denies hematuria, Denies urinary frequency, Denies dysuria, Denies urinary incontinence, Denies urinary hesitancy and Denies urinary urgency Musculoskeletal: Musculoskeletal: Reports no additional musculoskeletal complaints, Denies numbness and Denies tingling Comments: bruising to the left 4th finger Neurologic: Denies dizziness, Denies loss of vision, Denies numbness and Denies tingling Psychiatric: Psychiatric: Reports no additional psychiatric complaints Endocrine: Endocrine: Reports no additional endocrine complaints Hematologic/Lymphatic: Hematologic/Lymphatic: Reports no additional hematologic/lymphatic complaints Allergic/Immunologic: Allergic/Immunologic: Reports no additional allergic/immunologic complaints [facility] Past Medical History Attestation statement: The following information was validated with the patient. Source: old records reviewed and nursing notes reviewed Medical History Asthma GERD (gastroesophageal reflux disease) Hypertension IBS (irritable bowel syndrome) Surgical History H/O dilation and curettage Family History Family History Father Hypertension Father Heart abnormality Mother Alzheimer disease Social History Social History Household Members: Significant Other Housing: House Alcohol intake: current Alcohol intake frequency: 3 or more drinks per day Alcohol type: hard liquor Patient Tobacco Use Status: Never used Tobacco Smoked in Last 30 Days: No Advance Directives: No Advance Directives Information Provided: Yes Patient : No Sexual orientation: Straight/Heterosexual Gender identity: Female Physical Exam ED Vital Signs: Vital Signs - 24 hr 06/20/22 07:58 06/20/22 11:12 Temperature 98.4 F 98.0 F Pulse Rate 73 74 Respiratory Rate 18 18 Blood Pressure 138/79 132/80 Pulse Oximetry 96 97 Oxygen Delivery Method Room Air Room Air BMI result Body Mass Index 32.1 Const General: cooperative, no acute distress, alert and awake Nutritional Appearance: well nourished Orientation/consciousness: patient oriented x3 Limitations: no limitations HENMT Head: Yes normal to inspection and Yes atraumatic Ears: hearing grossly normal bilaterally and external ears normal General nose exam: Normal external nose present, no nasal discharge noted and no epistaxis Face and sinus: Yes normal facial exam, No abrasion and No laceration Mouth: Normal oral and palatal mucosa present, no drooling and no muffled voice Eyes Periorbital: periorbital findings abnormal right periorbital ecchymosis Conjunctivae: conjunctivae normal Pupils: Equal, round and reactive pupils present EOM: EOMs intact bilaterally Neck Neck: Yes normal visual inspection, Yes full ROM and Yes no lymphadenopathy Chest Chest palpation & inspection: normal inspection of the chest Resp Effort & Inspection: normal respiratory effort and able to speak in complete sentences Auscultation: clear to auscultation bilaterally Cardio Rate: regular rate Rhythm: regular rhythm GI Inspection: Yes normal to inspection Palpation (GI): Soft to palpation, not firm, nontender, no guarding and not rigid Neuro General: patient oriented x3 and moves all extremities Cranial nerves: Yes Equal, round and reactive pupils present Cognition (Neuro): normal cognition Motor exam (neuro): 5/5 motor strength present throughout Sensory Exam: Normal double simultaneous stimulation for sensation Coordination: [id number] test normal Extrem General: Yes normal to inspection, Yes full ROM and Yes capillary refill normal Psych Appearance: grossly normal Mental Status: mental status grossly normal Affect: normal affect Attitude: cooperative Thought process: Normal thought process present Thought content: Normal thought content present Insight: Good insight present (Psych) Procedures Orthopedic Splinting/Casting Injury #1: Side: left Upper Extremity Injury Location: finger Upper Extremity Immobilizer: aluminum form splint Medical Decision Making Medical Decision Making MDM Narrative: Patient is a 57 year old assigned female at with a history of anemia presenting to the emergency department today with right eye bruising and left 4th finger bruising. Patient's physical exam showed bruising surrounding the right eye and the left 4th finger. Patient's exam was otherwise unremarkable. Patient's left hand x-ray was read as no acute process however when I reviewed the imaging I see an abnormality along the ulnar aspect of the 4th digit just inferior of the PIP joint, the abnormality coupled with bruising is clinically concerning for a fracture. Patient's head, facial, and c-spine CTs were negative. I explained my physical exam findings as well as all test results to the patient. I answered all questions asked by the patient. Patient's left 4th finger was placed in an aluminum finger splint, without incident. I stressed the importance of the patient taking her medication as prescribed. I stressed the importance of the patient following up with her primary care provider and an orthopedic provider. I stressed the importance of the patient returning to the emergency department immediately if her symptoms were to worsen or if she were to develop any dizziness, shortness of breath, difficulty breathing, chest pain, blurry vision, loss of vision, nausea, vomiting, abdominal pain, fever, chills, back pain, or any other complaints. Patient verbalized agreement and understanding with this treatment plan and discharge. Differential Diagnosis Differential Diagnoses: The differential diagnosis associated with the presentation includes fall, finger fracture Independent Interpretation I performed an independent interpretation of an: Plain X-Ray (left hand) Interpretation: Concern for fracture of the left 4th digit along the ulnar aspect of the digit just inferior of the PIP joint Radiology Impression Discussion of test interpretation with radiology: I have reviewed the radiologist's reading. Radiologist Impression: My interpretation is in agreement with the radiologist's impression of the CT studies however, I have my own impression of the left hand XR EXAMINATION: CT HEAD, CT FACIAL BONES AND CT CERVICAL SPINE WITHOUT CONTRAST. CLINICAL INFORMATION: Fall, head strike.? COMPARISON: CT brain 02/13/2021? TECHNIQUE: 5 mm thin axial and reformatted 2 mm thin sagittal and coronal images of brain were obtained without contrast. Subsequently 3 mm thin axial and reformatted 2 mm thin sagittal and coronal images of cervical spine were obtained without contrast. Lastly axial 3 mm thin and reformatted 1.5 mm thin sagittal and coronal images of facial bones were obtained without contrast. DLP [id number]. This CT examination was performed using dose optimization technique as appropriate, variously including the following: Automated exposure control Adjustment of MA and/or KV according to patient size(this includes techniques or standardized protocols for targeted exams where dose is matched to indication/reason for exam;? extremities or head. Use of iterative reconstruction techniques.? FINDINGS: Brain: There is no acute intra-axial, extra-axial bleed, masses or midline shift. There is no acute infarct in evolution. There is no edema. The corey to white matter difference is maintained normal. The lateral ventricles are symmetrical in size and configuration without enlargement. Bone windows reveal no calvarial abnormality. There is no scalp soft tissue abnormality. Minimal mucoperiosteal thickening in bilateral maxillary sinuses. Rest the paranasal sinuses and mastoid air cells are well-aerated. Cervical spine: There is reversal of cervical lordosis. The vertebral heights and alignment is normal. There is loss of C5-C6 disc height with ventral and posterior spondylosis. Rest the disc heights are normal. The craniovertebral junction and the C1-C2 alignment is normal. Mild periarticular spurring at the C1-C2 alignment is noted. No visible acute fracture, dislocation or subluxation seen the prevertebral and paravertebral soft tissues are normal. The tracheal airway is widely patent. The lung apices are clear. Facial bones: There is no visible maxillofacial, nasal or mandibular fractures. Bilateral TM joints are symmetrical. Minimal mucoperiosteal bilateral maxillary sinuses seen.. The maxillofacial soft tissues are normal. CT/CT head/brain wo IV con IMPRESSION: No acute intracranial process seen. ? There is no acute fracture or dislocation cervical spine except for mild reversal of cervical lordosis likely spasm. There is degenerative disc changes C5-C6 disc level with spondylosis. ? There is no acute maxillofacial, nasal or mandibular fracture. The soft tissues are unremarkable. Dictated By: Haile Nava MD Signed By: Electronically signed by Haile Nava MD 06/20/22 1010 EXAMINATION: XR HAND, LEFT CLINICAL INFORMATION: Fall, bruising.? COMPARISON: None? TECHNIQUE: PA, lateral, and oblique views of the left hand. FINDINGS: The bones and soft tissues are normal. No fracture. Alignment is anatomic. Mild reduction in the PIP and DIP joint space is seen without bony erosive changes or spurring. No erosions or soft tissue calcifications.? XR/XR hand LT 2V IMPRESSION: Mild degenerative changes PIP and DIP joints. No visible acute fracture or dislocation seen. Especially no fracture left fourth digit. Dictated By: Haile Nava MD Signed By: Electronically signed by Haile Nava MD 06/20/22 0952 Discharge Plan Discharge Clinical Impression: Fall, Finger fracture Patient Disposition: Home, Self-Care Instructions: Finger Fracture (ED), Fall Prevention (ED) Additional Instructions: Follow up with your primary care provider and an orthopedic provider. Return to the emergency department immediately if your symptoms worsen or if you develop any dizziness, shortness of breath, difficulty breathing, chest pain, blurry vision, loss of vision, nausea, vomiting, abdominal pain, fever, chills, back pain, or any other complaints. Prescriptions: No Action atenolol 50 mg tablet 50 mg PO BID omeprazole 40 mg capsule,delayed release(DR/EC) 40 mg PO DAILY Flovent HFA 110 mcg/actuation HFA aerosol inhaler 1 puff inhalation DAILY amlodipine 10 mg tablet 10 mg PO DAILY albuterol sulfate 90 mcg/actuation HFA aerosol inhaler 2 puff PO Q4H Referrals: [facility] [place] [facility] [Provider Group] (Call to establish and follow up with an orthopedic provider. ) Je Osullivan MD [Primary Care Provider] - Stand Alone Forms: Work/School Release Interventions: ED Discharge Assessment Last Done: 06/20/22 11:12 Discharge Date/Time: 06/20/22 11:13 Print Language: Estonian
--- NOTE | 2022-06-20 09:24 | PC.NURSE ---
Patient to C.T for images . patient aware of plan of care .
--- NOTE | 2022-06-20 11:09 | PC.NURSE ---
Patient a/ox4 . Went over discharge as ordered by provider . patient to follow with orthopedics and primary care . no questions at this time .
[2022-06-20 11:12] VITALS: BP 132/80; PULSE 74; RESP 18; TEMP 36.7; O2SAT 97
== END 2022-06-20 11:13 | disposition home or self-care (01) ==
PROVIDERS: Emergency Provider Student in an Organized Health Care Education/Training Program; PCP Internal Medicine
DX: S62.605A Fracture of unspecified phalanx of left ring finger, initial encounter for closed fracture (principal); W01.0XXA Fall on same level from slipping, tripping and stumbling without subsequent striking against object, initial encounter; Y93.9 Activity, unspecified; Y92.014 Private driveway to single-family (private) house as the place of occurrence of the external cause; Y99.9 Unspecified external cause status
CPT/HCPCS: 29130; 70450; 70486; 72125; 73120; 99284

== ENCOUNTER 2022-06-25 17:13 | Outpatient (REF) | payer OTHER, SELFPAY | END 2022-06-25 17:14 | disposition home or self-care (01) | LOC: HO.HOSX 17:13 | PROVIDERS: Visit Provider Physician Assistant | DX: Z13.89 Encounter for screening for other disorder (principal) ==

== ENCOUNTER 2022-06-26 16:50 | Outpatient (REF) | payer OTHER, SELFPAY ==
--- NOTE | ~2022-06-26 | XR_ITS ---
EXAMINATION: XR BILATERAL KNEE SERIES INCLUDING AP UPRIGHT OF BOTH KNEES CLINICAL INFORMATION: Pain in the left knee. COMPARISON: X-rays of the left and right knee October 2017. TECHNIQUE: AP upright of both knees. Additional AP and lateral views of each knee. FINDINGS: RIGHT KNEE: Patellofemoral Compartment: Small marginal osteophytes without joint space narrowing. Possible small subchondral cysts. Findings indicative of mild arthrosis unchanged. Medial compartment: Normal. Lateral compartment: Normal. No effusion. LEFT KNEE: Patellofemoral compartment: Subchondral cystic change in the lateral facet of the patella and lateral trochlea likely unchanged. No joint space narrowing. Overall, mild arthrosis. Medial compartment: Normal. Lateral compartment normal. No effusion. XR/XR knee LT 2V IMPRESSION: RIGHT KNEE: Mild arthrosis unchanged. LEFT KNEE: Mild arthrosis unchanged.
--- NOTE | ~2022-06-26 | XR_ITS ---
EXAMINATION: XR BILATERAL KNEE SERIES INCLUDING AP UPRIGHT OF BOTH KNEES CLINICAL INFORMATION: Pain in the left knee. COMPARISON: X-rays of the left and right knee October 2017. TECHNIQUE: AP upright of both knees. Additional AP and lateral views of each knee. FINDINGS: RIGHT KNEE: Patellofemoral Compartment: Small marginal osteophytes without joint space narrowing. Possible small subchondral cysts. Findings indicative of mild arthrosis unchanged. Medial compartment: Normal. Lateral compartment: Normal. No effusion. LEFT KNEE: Patellofemoral compartment: Subchondral cystic change in the lateral facet of the patella and lateral trochlea likely unchanged. No joint space narrowing. Overall, mild arthrosis. Medial compartment: Normal. Lateral compartment normal. No effusion. XR/XR knee RT 2V IMPRESSION: RIGHT KNEE: Mild arthrosis unchanged. LEFT KNEE: Mild arthrosis unchanged.
--- NOTE | ~2022-06-26 | XR_ITS ---
EXAMINATION: XR HAND, LEFT CLINICAL INFORMATION: Pain left hand COMPARISON: X-rays of the left hand June 20, 2022 TECHNIQUE: PA, lateral, and oblique views of the left hand. FINDINGS: The bones and soft tissues are normal. No fracture. Alignment is anatomic. Joint spaces are maintained. No erosions or soft tissue calcifications. XR/XR hand LT min 3V IMPRESSION: Normal left hand.
--- NOTE | ~2022-06-26 | XR_ITS ---
EXAMINATION: XR BILATERAL KNEE SERIES INCLUDING AP UPRIGHT OF BOTH KNEES CLINICAL INFORMATION: Pain in the left knee. COMPARISON: X-rays of the left and right knee October 2017. TECHNIQUE: AP upright of both knees. Additional AP and lateral views of each knee. FINDINGS: RIGHT KNEE: Patellofemoral Compartment: Small marginal osteophytes without joint space narrowing. Possible small subchondral cysts. Findings indicative of mild arthrosis unchanged. Medial compartment: Normal. Lateral compartment: Normal. No effusion. LEFT KNEE: Patellofemoral compartment: Subchondral cystic change in the lateral facet of the patella and lateral trochlea likely unchanged. No joint space narrowing. Overall, mild arthrosis. Medial compartment: Normal. Lateral compartment normal. No effusion. XR/XR knee standing BI IMPRESSION: RIGHT KNEE: Mild arthrosis unchanged. LEFT KNEE: Mild arthrosis unchanged.
== END 2022-06-26 16:51 | disposition home or self-care (01) ==
LOC: HO.HOSX 16:50
PROVIDERS: Visit Provider Physician Assistant
DX: M79.642 Pain in left hand (principal); M25.562 Pain in left knee; M25.561 Pain in right knee
CPT/HCPCS: 73130; 73560; 73565

== ENCOUNTER 2022-06-26 18:10 | Outpatient (REF) | payer OTHER, SELFPAY | END 2022-06-26 18:11 | disposition home or self-care (01) | LOC: HO.LNP 18:10 | PROVIDERS: Visit Provider Physician Assistant | DX: J35.8 Other chronic diseases of tonsils and adenoids (principal) | CPT/HCPCS: 87070 ==

== ENCOUNTER 2022-07-03 06:16 | Outpatient (REF) | payer OTHER, SELFPAY ==
--- NOTE | ~2022-07-03 | XR_ITS ---
EXAMINATION: XR HAND, LEFT CLINICAL INFORMATION: Pain COMPARISON: X-ray 07/22/2022, 06/20/2022 TECHNIQUE: PA, lateral, and oblique views of the left hand. FINDINGS: Marker positioned along the fourth digit. In the fourth digit, there is no evidence of acute fracture or dislocation. There is DIP joint space narrowing. No erosions. No abnormal soft tissue calcification. There is a mixed sclerosis and lucencies in the lunate, nonspecific, could be related to arthritis, other etiologies such as avascular necrosis not excluded. There is decrease in the DIP joint spaces of the second, third and fifth digits. No erosions. No abnormal soft tissue calcification. XR/XR hand LT min 3V IMPRESSION: Mild second-fifth DIP joint arthritis. No evidence of erosions. No evidence of acute fracture or dislocation. Lunate findings, nonspecific, could be related to degenerative changes, avascular necrosis.
== END 2022-07-03 06:17 | disposition home or self-care (01) ==
LOC: HO.HOSX 06:16
PROVIDERS: Visit Provider Physician Assistant
DX: S62.615D Displaced fracture of proximal phalanx of left ring finger, subsequent encounter for fracture with routine healing (principal)
CPT/HCPCS: 73130

== ENCOUNTER 2022-07-11 08:00 | Outpatient (RCR) | payer OTHER, SELFPAY | END 2022-08-15 10:21 | disposition home or self-care (01) | LOC: HO.OT 08:00 | PROVIDERS: PCP Internal Medicine; Visit Provider Physician Assistant | DX: S62.613D Displaced fracture of proximal phalanx of left middle finger, subsequent encounter for fracture with routine healing (principal) | CPT/HCPCS: 97110; 97165 ==

== ENCOUNTER 2022-07-24 10:13 | Outpatient (REF) | payer OTHER, SELFPAY ==
--- NOTE | ~2022-07-24 | XR_ITS ---
EXAMINATION: XR HAND, LEFT CLINICAL INFORMATION: Pain. COMPARISON: Prior radiographs, most recently 07/03/2022. TECHNIQUE: PA, lateral, and oblique views of the left hand. On the lateral view, only the fourth finger is extended. FINDINGS: Bony alignment and mineralization are normal. On the oblique view at the base of the fourth middle phalanx, a stable pulmonary lucency is seen which could represent a tiny intra-articular fracture versus degenerative change and/or artifact. The appearance is similar to 06/25/2022. A small subchondral cyst is noted in the head of the third proximal phalanx. No dislocation is seen. There is again slight narrowing of the second through fifth distal interphalangeal joint spaces. There is minimal peripheral osteophyte formation of the interphalangeal joint of the thumb. No focal soft tissue swelling, gas or foreign body is seen. XR/XR hand LT min 3V IMPRESSION: Stable appearance of a faint lucency at the palmar aspect of the base of the third metacarpal. The possibility of a tiny fracture line is raised, and continued clinical correlation is recommended. No interval callus formation is seen.
== END 2022-07-24 10:14 | disposition home or self-care (01) ==
LOC: HO.HOSX 10:13
PROVIDERS: Visit Provider Physician Assistant
DX: S62.615D Displaced fracture of proximal phalanx of left ring finger, subsequent encounter for fracture with routine healing (principal); S62.625D Displaced fracture of middle phalanx of left ring finger, subsequent encounter for fracture with routine healing; X58.XXXD Exposure to other specified factors, subsequent encounter
CPT/HCPCS: 73130

== ENCOUNTER 2022-07-25 07:21 | Outpatient (REF) | payer OTHER, SELFPAY ==
--- NOTE | ~2022-07-25 | CT_ITS ---
EXAMINATION: CT HEAD WITHOUT CONTRAST CLINICAL INFORMATION: Postconcussion syndrome COMPARISON: CT brain without contrast 02/11/2021 TECHNIQUE: Contiguous axial imaging was performed from the skull base to vertex without intravenous administration of contrast. This CT examination was performed using dose optimization techniques as appropriate, variously including the following: *Automated exposure control *Adjustment of mA and/or kV according to patient size (this includes techniques or standardized protocols for targeted exams where dose is matched to indication/reason for exam; i.e. extremities or head) *Use of iterative reconstruction technique DLP: 697 mGy-cm FINDINGS: There is no acute intra-axial, extra-axial bleed, masses or midline shift. There is no acute infarction in evolution. There is no edema. The lateral ventricles are symmetrical in size and configuration without enlargement. Bone windows reveal no calvarial abnormality. Bilateral paranasal sinuses and mastoid air cells are well-aerated. No scalp soft tissue abnormality seen. CT/CT head/brain wo IV con IMPRESSION: No acute intracranial process seen.
== END 2022-07-25 07:22 | disposition home or self-care (01) ==
LOC: HO.CT 07:21
PROVIDERS: PCP Internal Medicine; Visit Provider Physician Assistant
DX: F07.81 Postconcussional syndrome (principal)
CPT/HCPCS: 70450

== ENCOUNTER 2023-01-01 08:24 | Outpatient (AMB) | payer OTHER, SELFPAY ==
--- NOTE | 2023-01-01 08:26 | MHC.OFFVIS ---
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 Postal Service Required: No Information Interpreted: non-clinical & clinical Restaurant Crew Member: Restaurant Crew Member Present (Darlyn EVERETT) Accompanied by: Self / Same As Patient Allergies fentanyl [FENTANYL] Allergy (Severe, Verified 01/01/23 08:31) NAUSEA AND VOMITING-SEVERE, nausea and vomiting meperidine [From DEMEROL] Allergy (Severe, Verified 01/01/23 08:31) SEVERE N/V Sulfa (Sulfonamide Antibiotics) [Sulfa (Sulfonamides)] Allergy (Mild, Verified 01/01/23 08:31) HIVES scopolamine [SCOPOLAMINE] Adverse Reaction (Severe, Verified 01/01/23 08:31) SEVERE BALANCE ISSUES Post menopausal: Yes HPI HPI Comments History of Present Illness Details Presenting for annual exam. No complaints. Last Pap/HPV was negative in 12/10 Last Mammogram was BI-RADS 2 in 02/11 Last Colonoscopy was in 03/07, the recommendation was to repeat in 10 years [facility] Medical History Asthma GERD (gastroesophageal reflux disease) Hypertension IBS (irritable bowel syndrome) Surgical History H/O dilation and curettage Family History Father Hypertension Father Heart abnormality Mother Alzheimer disease Social History Household Members: Significant Other Housing: House Alcohol intake: current Alcohol intake frequency: holidays/special occasions only Patient Tobacco Use Status: Never used Tobacco Current occupational status: employed 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[place] Sexual orientation: Straight/Heterosexual Gender identity: Female Female Reproductive History Menstrual Age of Menarche: 10 Menopause type: natural Total pregnancies: 3 Full term: 3 Number of Living Children: 3 Date of last pap smear: 11/30/19 Date of Mammogram: 02/20/22 Review of Systems Const All systems reviewed & are unremarkable except as noted in HPI and below Card Reports as per HPI Resp Reports as per HPI GI Reports as per HPI and Reports no additional complaints Reports as per HPI Physical Exam Vital Signs: Last Vital Signs BP 120/70 01/01/23 08:27 BMI result Body Mass Index 32.9 Const General: cooperative, healthy appearing and comfortable Chest Chest palpation & inspection: normal inspection of the chest and normal palpation of entire chest wall Breast/axilla inspection: normal inspection of the breasts and normal inspection of the axillae Breast/axilla palpation: normal palpation of the breasts, normal palpation of the axillae and no axillary lymphadenopathy Resp Effort & Inspection: normal respiratory effort Auscultation: clear to auscultation bilaterally Percussion: percussion normal Cardio Palpation: normal PMI Rate: regular rate Rhythm: regular rhythm Heart sounds: no murmurs and no rubs Peripheral pulses: Peripheral pulses 2+ throughout GI Inspection: Yes normal to inspection Palpation (GI): Soft to palpation, nontender, no guarding, not rigid and No hepatosplenomegaly present Percussion: Yes normal to percussion Auscultation: normal bowel sounds Rectal Exam - Female: deferred General: Yes bladder normal to palpation External Female Exam: No lesion Speculum Exam - Vagina: normal appearance of the vagina, normal palpation, normal vaginal discharge and not erythematous Speculum Exam - Cervix: normal appearance of the cervix and normal palpation Bimanual exam- vagina & uterus: normal bimanual exam, normal palpation, uterine size normal, bladder normal to palpation, consistency normal and normal palpation Bimanual Exam- Adnexa, other: normal adnexae, no masses and no tenderness Assessment & Plan Assessment & Plan (1) Well woman exam: Code(s): Z01.419 - Encounter for gynecological examination (general) (routine) without abnormal findings Plan: Co testing not indicated this year. Mammogram ordered , the patient is up-to-date with her screening colonoscopy . The patient was instructed to perform monthly self-breast exams and schedule annual exam in a year; all questions answered and the patient verbalized understanding. Orders: Orders MM screening mammo BI Today Z12.31 - Encounter for screening mammogram for malignant neoplasm of breast Coding Level of Care Code Est Pt Prev Care 40-64y(37633) Diagnoses Well woman exam Z01.419
[2023-01-01 08:27] VITALS: BP 120/70; BMI 32.9
== END 2023-01-01 08:51 | disposition home or self-care (01) ==
LOC: HO.HWS 08:24
PROVIDERS: PCP Internal Medicine; Visit Provider Obstetrics & Gynecology
DX: Z01.419 Encounter for gynecological examination (general) (routine) without abnormal findings (principal)
CPT/HCPCS: 99396

== ENCOUNTER → 2023-01-01 08:24 | Outpatient (BNVA) | payer OTHER, SELFPAY | PROVIDERS: PCP Internal Medicine; Visit Provider Obstetrics & Gynecology ==

== ENCOUNTER 2023-02-26 07:34 | Outpatient (REF) | payer OTHER, SELFPAY | END 2023-02-26 07:35 | disposition home or self-care (01) | LOC: HO.MAMMO 07:34 | PROVIDERS: PCP Dermatology Procedural Dermatology; Visit Provider Obstetrics & Gynecology | DX: Z12.31 Encounter for screening mammogram for malignant neoplasm of breast (principal) | CPT/HCPCS: 77063; 77067 ==

== ENCOUNTER → 2023-02-26 07:45 | Outpatient (BNV) | payer OTHER, SELFPAY | PROVIDERS: PCP Dermatology Procedural Dermatology; Visit Provider Radiology Diagnostic Radiology | DX: Z12.31 Encounter for screening mammogram for malignant neoplasm of breast (principal) | CPT/HCPCS: 77063; 77067; 77080 ==

== ENCOUNTER 2023-05-28 07:15 | Outpatient (REF) | payer OTHER, SELFPAY ==
[2023-05-28 07:45] LABS: MANUAL DIFF FLAG NO
[2023-05-28 08:50] LABS: Basophils Absolute Auto 0.1 X10*3/uL (0.0-0.2); Eosinophils Absolute Auto 0.1 X10*3/uL (0.0-0.4); Eosinophils Percent Auto 1.3 % (0-4); Hemoglobin 12.2 g/dl (12.0-16.0); Imm Gran Abs Auto 0.03 X10*3/uL (0.00-0.03); Imm Gran Pct Auto 0.4 % (0.0-0.4); Lymphocytes Percent Auto 27.8 % (20-40); Mean Corpuscular Hemoglobin 26.6 pg (27.0-33.0); Mean Corpuscular Volume 80.8 fL (80.0-98.0); Monocytes Absolute Auto 0.5 X10*3/uL (0.1-1.2); Monocytes Percent Auto 6.6 % (2-11); Neutrophils Absolute Auto 4.4 x10*3/uL (2.0-8.3); Neutrophils Percent Auto 62.9 % (45-73); Platelet Count 320 X10*3/uL (160-400); Red Blood Count 4.58 X10*6/uL (4.20-5.50); Red Cell Distribution Width 13.3 % (11.0-16.0)
[2023-05-28 09:14] LABS: Estimated Average Glucose 114 mg/dL; Hemoglobin A1c % 5.6 % (<6.0)
[2023-05-28 09:29] LABS: Alanine Aminotransferase 12 U/L (0-31); Albumin Level 3.9 g/dL (3.5-5.0); Alkaline Phosphatase 94 U/L (39-117); Anion Gap 13 (12-20); Aspartate Amino Transferase 13 U/L (5-31); Bilirubin Total 0.3 mg/dL (0.0-1.0); Blood Urea Nitrogen 11 mg/dL (9-16); Carbon Dioxide 26 mmol/L (22-29); Chloride 107 mmol/L (96-108); Cholesterol 186 mg/dL (<200); Estimated Glomerular Filt Rate > 60; Glucose Random 94 mg/dL (60-115); HDL Cholesterol 46 mg/dL (>40); LDL Cholesterol Calculated 108 mg/dL (<100); Sodium 142 mmol/L (135-145); Total Protein 7.1 g/dL (6.5-8.0); Triglycerides 162 mg/dL (<150)
[2023-05-28 09:36] LABS: Free T4 (Free Thyroxine) 0.86 ng/dL (0.71-1.85)
== END 2023-05-28 07:16 | disposition home or self-care (01) ==
LOC: HO.LAB 07:15
PROVIDERS: PCP Internal Medicine; Visit Provider Physician Assistant
DX: Z00.00 Encounter for general adult medical examination without abnormal findings (principal)
CPT/HCPCS: 36415; 80053; 80061; 83036; 84439; 84443; 85025

== ENCOUNTER 2023-11-04 08:42 | Outpatient (REF) | payer OTHER, SELFPAY ==
[2023-11-04 09:08] LABS: MANUAL DIFF FLAG NO
[2023-11-04 09:32] LABS: Basophils Absolute Auto 0.1 X10*3/uL (0.0-0.2); Basophils Percent Auto 1.2 % (0-2); Eosinophils Absolute Auto 0.1 X10*3/uL (0.0-0.4); Eosinophils Percent Auto 2.1 % (0-4); Hematocrit 36.7 % (37.0-47.0); Hemoglobin 12.2 g/dl (12.0-16.0); Imm Gran Abs Auto 0.01 X10*3/uL (0.00-0.03); Imm Gran Pct Auto 0.2 % (0.0-0.4); Lymphocytes Absolute Auto 1.5 X10*3/uL (1.2-4.9); Lymphocytes Percent Auto 25.9 % (20-40); Mean Corpuscular HGB Conc 33.2 g/dl (31.0-35.0); Mean Corpuscular Hemoglobin 26.7 pg (27.0-33.0); Mean Corpuscular Volume 80.3 fL (80.0-98.0); Mean Platelet Volume 9.5 fL (9.4-12.3); Monocytes Absolute Auto 0.5 X10*3/uL (0.1-1.2); Monocytes Percent Auto 8.1 % (2-11); Neutrophils Absolute Auto 3.6 x10*3/uL (2.0-8.3); Neutrophils Percent Auto 62.5 % (45-73); Platelet Count 288 X10*3/uL (160-400); Red Blood Count 4.57 X10*6/uL (4.20-5.50); Red Cell Distribution Width 13.9 % (11.0-16.0); White Blood Count 5.8 X10*3/uL (4.8-10.8)
[2023-11-04 09:35] LABS: Prothrombin Time 11.7 SEC (11.1-13.3)
[2023-11-04 09:38] LABS: Partial Thromboplastin Time 28.2 SEC (26.0-36.8)
[2023-11-04 10:28] LABS: Alanine Aminotransferase 16 U/L (0-31); Albumin Level 4.2 g/dL (3.5-5.0); Alkaline Phosphatase 92 U/L (39-117); Amylase 38 U/L (28-100); Anion Gap 15 (12-20); Aspartate Amino Transferase 17 U/L (5-31); Bilirubin Total 0.4 mg/dL (0.0-1.0); Blood Urea Nitrogen 12 mg/dL (9-16); Calcium 9.4 mg/dL (8.4-10.2); Carbon Dioxide 25 mmol/L (22-29); Chloride 107 mmol/L (96-108); Estimated Glomerular Filt Rate > 60; Gamma Glutamyl Transpeptidase 20 U/L (7-33); Glucose Random 85 mg/dL (60-115); Iron 72 mcg/dL (30-160); Lipase 21 U/L (8-78); Percent Iron Saturation 20 % (15-50); Potassium 4.4 mmol/L (3.3-5.1); Sodium 143 mmol/L (135-145); Total Iron Binding Capacity 353 mcg/dL (228-428); Total Protein 7.6 g/dL (6.5-8.0); Unsaturated Iron Binding 281 ug/dL
[2023-11-04 10:34] LABS: Ferritin 23 ng/mL (10-250)
[2023-11-04 10:55] LABS: Folate 7.9 ng/mL (> or = 4.0); Vitamin B12 423 pg/mL (200-900)
[2023-11-07 00:33] LABS: Protein C Activity 105 % normal (70-180); Protein S Activity rflx Tot&Fr 76 % normal (60-140)
== END 2023-11-04 08:43 | disposition home or self-care (01) ==
LOC: HO.LAB 08:42
PROVIDERS: PCP Internal Medicine; Visit Provider Physician Assistant
DX: R58 Hemorrhage, not elsewhere classified (principal); R10.9 Unspecified abdominal pain
CPT/HCPCS: 36415; 80053; 82150; 82607; 82728; 82746; 82977; 83540; 83690; 85025; 85302; 85303; 85306; 85610; 85730

== ENCOUNTER 2024-01-06 07:26 | Outpatient (AMB) | payer OTHER, SELFPAY ==
--- NOTE | 2024-01-06 07:26 | A.OFFVIS_ITS ---
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 Inboard Required: No Information Interpreted: non-clinical & clinical Nuclear Worker Technician: Nuclear Worker Technician Present (Darlyn EVERETT) Accompanied by: Self / Same As Patient Allergies fentanyl [FENTANYL] Allergy (Severe, Verified 01/06/24 07:31) NAUSEA AND VOMITING-SEVERE, nausea and vomiting meperidine [From DEMEROL] Allergy (Severe, Verified 01/06/24 07:31) SEVERE N/V Sulfa (Sulfonamide Antibiotics) [Sulfa (Sulfonamides)] Allergy (Mild, Verified 01/06/24 07:31) HIVES scopolamine [SCOPOLAMINE] Adverse Reaction (Severe, Verified 01/06/24 07:31) SEVERE BALANCE ISSUES Post menopausal: Yes HPI Comments Details: Presenting for annual exam. No complaints. Last Pap/HPV was negative in 12/10 Last Mammogram was BI-RADS 1 in 03/15 Last Colonoscopy was done in 03/07, the recommendation was to repeat in 10 years [facility] Medical History IBS (irritable bowel syndrome) GERD (gastroesophageal reflux disease) Asthma Hypertension Surgical History H/O dilation and curettage Family History Father Hypertension Father Heart abnormality Mother Alzheimer disease Social History Household Members: Significant Other Housing: House Alcohol intake: current Alcohol intake frequency: holidays/special occasions only Patient Tobacco Use Status: Never used Tobacco Current occupational status: employed 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[place] Sexual orientation: Straight/Heterosexual Gender identity: Female Female Reproductive History Menstrual Age of Menarche: 10 Menopause type: natural Total pregnancies: 3 Full term: 3 Number of Living Children: 3 Date of last pap smear: 11/30/19 Date of Mammogram: 02/26/23 Review of Systems Const All systems reviewed & are unremarkable except as noted in HPI and below Card Reports as per HPI Resp Reports as per HPI GI Reports as per HPI and Reports no additional complaints Reports as per HPI Physical Exam Vital Signs: BMI result Body Mass Index 33.9 Const General: cooperative, healthy appearing and comfortable Chest Chest palpation & inspection: normal inspection of the chest and normal palpation of entire chest wall Breast/axilla inspection: normal inspection of the breasts and normal inspection of the axillae Breast/axilla palpation: normal palpation of the breasts, normal palpation of the axillae and no axillary lymphadenopathy Resp Effort & Inspection: normal respiratory effort Auscultation: clear to auscultation bilaterally Percussion: percussion normal Cardio Palpation: normal PMI Rate: regular rate Rhythm: regular rhythm Heart sounds: no murmurs and no rubs Peripheral pulses: Peripheral pulses 2+ throughout GI Inspection: Yes normal to inspection Palpation (GI): Soft to palpation, nontender, no guarding, not rigid and No hepatosplenomegaly present Percussion: Yes normal to percussion Auscultation: normal bowel sounds Rectal Exam - Female: deferred General: Yes bladder normal to palpation External Female Exam: No lesion Speculum Exam - Vagina: normal appearance of the vagina, normal palpation, normal vaginal discharge and not erythematous Speculum Exam - Cervix: normal appearance of the cervix and normal palpation Bimanual exam- vagina & uterus: normal bimanual exam, normal palpation, uterine size normal, bladder normal to palpation, consistency normal and normal palpation Bimanual Exam- Adnexa, other: normal adnexae, no masses and no tenderness Assessment & Plan Assessment & Plan (1) Well woman exam: Code(s): Z01.419 - Encounter for gynecological examination (general) (routine) without abnormal findings Category: Medical Plan: Co testing not indicated this year. Mammogram scheduled for 03/04/2024 The patient was instructed to perform monthly self-breast exams and schedule annual exam in a year. All questions answered and the patient verbalized understanding. Orders: Orders MM tomosynthesis screening BI Today Z12.31 - Encounter for screening mammogram for malignant neoplasm of breast Coding Level of Care Code Est Pt Prev Care 40-64y(34542) Diagnoses Well woman exam Z01.419
[2024-01-06 07:29] VITALS: BP 110/66; BMI 33.9
== END 2024-01-06 07:56 | disposition home or self-care (01) ==
LOC: HO.HWS 07:26
PROVIDERS: PCP Internal Medicine; Visit Provider Obstetrics & Gynecology
DX: Z01.419 Encounter for gynecological examination (general) (routine) without abnormal findings (principal)
CPT/HCPCS: 99396

== ENCOUNTER → 2024-01-06 07:26 | Outpatient (BNVA) | payer OTHER, SELFPAY | PROVIDERS: PCP Internal Medicine; Visit Provider Obstetrics & Gynecology ==

== ENCOUNTER 2024-03-04 07:37 | Outpatient (REF) | payer OTHER, SELFPAY ==
--- NOTE | ~2024-03-04 | MM_ITS ---
EXAMINATION: MM SCREENING DIGITAL BREAST TOMOSYNTHESIS, BILATERAL CLINICAL INFORMATION: Screening. Asymptomatic. COMPARISON: Mammography: Comparison is made with available priors TECHNIQUE: Digital breast mammography with tomosynthesis is performed in both the craniocaudal and mediolateral oblique views along with computer-aided detection (CAD). FINDINGS: There are scattered areas of fibroglandular density (ACR BI-RADS breast composition Category b). There are no significant masses, abnormal calcifications, or other abnormalities. MM/MM tomosynthesis screening BI IMPRESSION: No mammographic evidence of malignancy. ASSESSMENT: BI-RADS BI-RADS 1 - Negative RECOMMENDATION: Routine annual mammography screening. 1 year F/U This examination should not preclude the clinical evaluation of a suspicious palpable abnormality. This patient's information was entered into a reminder system with a target due date for their next mammogram. Electronically signed by: Dilma Sumner DO 03/17/2024 07:28 PM EDT
== END 2024-03-04 07:38 | disposition home or self-care (01) ==
LOC: HO.MAMMO 07:37
PROVIDERS: PCP Internal Medicine; Visit Provider Internal Medicine
DX: Z12.31 Encounter for screening mammogram for malignant neoplasm of breast (principal)
CPT/HCPCS: 77063; 77067

== ENCOUNTER → 2024-03-04 07:45 | Outpatient (BNV) | payer OTHER, SELFPAY | PROVIDERS: PCP Internal Medicine; Visit Provider Internal Medicine | DX: Z12.31 Encounter for screening mammogram for malignant neoplasm of breast (principal) | CPT/HCPCS: 77063; 77067 ==

== ENCOUNTER 2024-11-05 09:50 | Outpatient (REF) | payer OTHER, SELFPAY ==
--- NOTE | ~2024-11-05 | MM_ITS ---
EXAMINATION: DXA BONE DENSITY AXIAL HISTORY: M85.80 TECHNIQUE: [employer] Dual energy absorptiometry (DEXA) of the lumbar spine, total left hip, and femoral neck was performed. COMPARISON: There are no prior studies for comparison. FINDINGS: The bone mineral density of the lumbar spine is 1.004 with a T-score of -1.5, and a Z-score of -1.2. This is indicative of osteopenia. The bone mineral density of the left total hip is 0.888 with a T-score of -1.0, and a Z-score of -0.7. This is indicative of normal bone mineral density. The bone mineral density of the left femoral neck is 0.790 with a T-score of -1.8, and a Z-score of -1.1. This is indicative of osteopenia. FRACTURE RISK: The FRAX index suggests a risk of major osteoporotic fracture of 8.7%, and of hip fracture 0.9%. MM/XR DEXA axial skeleton IMPRESSION: Based on bone mineral density, and according to World Health Organization (WHO) criteria, the diagnosis is consistent with osteopenia. All bone density values are in grams per centimeter squared (g/cm2). Statistically, 68% of repeat scans fall within 1 SD (+/- 0.010 g/cm2 for AP spine L1-L4) and 1 SD (+/- 0.012 g/cm2 for femur total) FRAX is a trademark of the [employer] [place] [employer] Met[employer], a World Health Organization (WHO) Collaborating Center. Electronically signed by: Adam Crouch MD 11/05/2024 10:20 AM EDT
--- OUTSIDE RECORDS SUMMARY | 2024-11-05 10:08 | XMS_ITS | Data Portability ---
Author Organization [facility] Home Service Address [address] [place] [address] Assessment Encounter Date Assessment Date Assessment LastModified by Organization Details LastModified Time 06/27/2023 06/27/2023 Patient agreed and verbally consents to this audio and video Telehealth appointment via a secure platform [email or web address] Not available 06/27/2023 14:34:45 Plan of Treatment Reminders Order Date Submit Date Provider Last Modified By Organization Details Last Modified Time Details Appointments ANNUAL EXAM 2025 01:30P SEVERINO REYES Not available Not available Not available Lab gamma-glu tamyl transfera se (ggt), serum 2023 024 [facility], [address] [place] [address], [id number], 11/03/2023 14:58:38 amylase + lipase, serum 2023 024 [facility], [address] [place] [address], [id number], 11/03/2023 14:58:38 PT/PTT, plasma 2023 024 [facility], [address] [place] [address], [id number], 11/03/2023 14:58:38 CBC w/ auto diff 2023 024 [facility], [address] [place] [address], [id number], 11/03/2023 14:58:38 PT/INR 2023 024 [facility], [address] [place] [address], [id number], 11/03/2023 14:58:38 protein C + protein S, functiona l panel, plasma 2023 024 [facility], [address] [place] [address], [id number], 11/07/2023 11:19:29 CMP, serum or plasma 2023 024 [facility], [address] [place] [address], [id number], 11/04/2023 11:27:03 iron + total iron-bind ing capacity (TIBC), serum 2023 024 [facility], [address] [place] [address], [id number], 11/03/2023 14:58:38 ferritin, serum or plasma 2023 024 [facility], [address] [place] [address], [id number], 11/03/2023 14:58:38 vitamin B12 + folate, serum or blood 2023 024 [facility], [address] [place] [address], [id number], 11/03/2023 14:58:38 Referral None recorded. Procedures None recorded. Surgeries None recorded. Imaging bone density 2024 025 [facility], [address] [place] [address], [id number], 10/19/2024 08:17:36 Medication Orders paroxetin e 10 mg tablet 2023 024 [id number], [address], [place], [id number], 06/27/2023 14:32:57 Patient TargetsNo targets recorded. Patient InstructionsNo instructions recorded. Reason for Referral None Reported. Results Created Date Observation Date Name Description Value Unit Range Abnormal Flag Note LastModifiedBy Organization Detail LastModifiedTime 03/17/20 24 03/04/2024 MAMMO , scree lauren, digit al, bilat eral No observ ation record ed. [email or web address] [address] [place], [id number], 03/19/2024 10:55:02 Result Notes None recorded. Problems Name Problem SNOMED Code Status Onset Date Resolution Date Notes Provider Name and Address Organization Details Recorded Time Hiatal hernia 82588709 Active 2018 KATIE Morgan [address] [place], [address], [facility] 9 16:17:32 COVID-19 115840685 Active 202006/27/20 Hedy Rivera [facility] 1 08:28:23 Atypical chest pain 276282004 Active 2021 SEVERINO QUICK [address] [place] [address], [address], [facility] 2 15:51:21 Fracture of phalanx of finger 81887031 Active 2022 SEVERINO QUICK [address] [place], [address], [facility] 3 16:43:58 Concussio n injury of brain 386655445 Active 2022 SEVERINO QUICK [address] [place], [address], [facility] 3 16:44:44 Exudate on tonsils 893166071 Active 2022 SEVERINO QUICK [address] [place], [address], [facility] 3 16:47:58 Postconcu ssion syndrome 86913516 Active 2022 SEVERINO QUICK [address] [place], [address], [facility] 3 12:19:55 Bacterial conjuncti vitis 811731331 Active 2022 SEVERINO QUICK [address] [place] [address], [address], [facility] 3 09:25:43 Asthmatic bronchiti s 456800162 Active 2022 Je Osullivan, DO [address] [place] [address], [address], [facility] 3 09:37:11 Candidias is of mouth 63601765 Active 2022 SEVERINO QUICK [address] [place] [address], [address], [facility] 3 10:13:10 Menopause Active 2022 SEVERINO QUICK [address] [place] [address], [address], [facility] 3 15:47:31 Easy bruising 843715098 Active 2023 SEVERNIO QUICK [address] [place] [address], [address], [facility] 4 14:55:26 Abdominal pain 73858819 Active 2023 SEVERINO QUICK [address] [place] [address], [address], [facility] 4 14:55:55 Exacerbat ion of intermitt ent asthma 562465783 Active 2023 SEVERINO QUICK [address] [place] [address], [address], [facility] 4 09:31:54 Acute streptoco ccal pharyngit is Active 2023 SEVERINO QUICK [address] [place] [address], [address], [facility] 4 15:05:36 Osteopeni a 799609627 Active 2024 SEVERINO QUICK [address] [place], [address], [facility] 5 10:24:01 Bone spur of right hand 470948483509 101 Active 2024 SEVERINO QUICK [address] [place], [address], [facility] 5 10:25:46 Asthma 616239549 Active [facility] 8 16:26:00 Gastroeso phageal reflux disease 302533710 Active 2017 [facility] 8 16:26:06 Essential hypertens ion 85080051 Active 2017 [facility] 8 16:26:14 Irritable bowel syndrome 48147872 Active 2017 [facility] 8 16:26:21 Notes:patient still has swati od (sees [facility] regularly) Problem Notes None recorded. Procedures Surgical History None recorded. Imaging Results Imaging Date Name Status LastModified by Organiz ation Details LastModified Time 03/04/2024 MAMMO, screening, digital, bilateral completed [email or web address] [facility] [address] [place] [address] [place], [address], 03/19/2024 10:55:02 Procedure Notes None recorded. Medical Equipment None Reported. Allergies Allergen ID Allergen Name Allergen Category Reaction Reaction Severity Criticality Documentation Date Start Date Code Code System Note Provider Name and Address Organization Details Recorded Time 1233 Substance with sulfonami de structure and antibacte rial mechanism of action (substanc e) medicatio n Not available Not available Not available 10/28/2017 33024 8003 SNOMED [facility] 8 16:25:38 1234 fentanyl medicatio n Not available Not available Not available 10/28/2017 4337 RxNorm Gris Jose graf [place] [facility] 8 16:25:49 Medications Name Sig Start Date Stop Date Status Note LastModified by Organization Details LastModified Time amoxicillin 500 mg capsule 01/15 completed Not Available Not Available Not Available fluconazole 100 mg tablet TAKE 1 TABLET BY MOUTH EVERY DAY FOR 7 DAYS 06/14 completed Not Available Not Available Not Available nystatin 100,000 unit/mL oral suspension SHAKE LIQUID AND TAKE 5 ML BY MOUTH FOUR TIMES DAILY FOR 7 DAYS 06/14 completed Not Available Not Available Not Available prednisone 10 mg tablet 50 mg x 2 days40 mg x 2 days30 mg x 2 days20 mg x 2 days10 mg x 2 days 06/14 completed Not Available Not Available Not Available paroxetine 10 mg tablet TAKE 1 TABLET BY MOUTH EVERY DAY active Not Available Not Available No t Available cefuroxime axetil 250 mg tablet Take 1 tablet every 12 hours by oral route. 07/29 completed Not Available Not Available Not Available ipratropium 0.5 mg-albutero l 3 mg (2.5 mg base)/3 mL nebulizatio n soln USE 1 VIAL VIA NEBULIZER EVERY 4 HOURS NEEDED active Not Available Not Available No t Available azithromyci n 250 mg tablet TAKE 2 TABLETS (500 MG) BY ORAL ROUTE ONCE DAILY FOR 1 DAY THEN 1 TABLET (250 MG) BY ORAL ROUTE ONCE DAILY FOR 4 DAYS 02/14 completed Not Available Not Available Not Available fluconazole 150 mg tablet TAKE 1 TABLET BY MOUTH EVERY DAY FOR 7 DAYS 05/27 completed Not Available Not Available Not Available ranitidine 300 mg tablet Take 1 tablet every day by oral route in the evening. 03/27 completed Not Available Not Available Not Available sumatriptan 25 mg tablet TAKE 1 TABLET BY MOUTH EVERY DAY 05/01 completed Not Available Not Available Not Available metronidazo le 0.75 % (37.5 mg/5 gram) vaginal gel 05/12 completed Not Available Not Available Not Available Medrol (Jessee) 4 mg tablets in a dose pack use as directed. 02/14 completed Not Available Not Available Not Available prednisone 20 mg tablet TAKE 3 TABLETS BY MOUTH DAILY FOR 3 DAYS FOLLOWED BY 2 TABLETS BY MOUTH DAILY FOR 3 DAYS FOLLOWED BY 1 TABLET BY MOUTH DAILY FOR 3 DAYS 01/15 completed Not Available Not Available Not Available amlodipine 5 mg tablet TAKE 1 TABLET BY MOUTH EVERY DAY 01/15 completed Not Available Not Available Not Available ciprofloxac in 500 mg tablet TAKE 1 TABLET BY MOUTH EVERY 12 HOURS FOR 10 DAYS 02/14 completed Not Available Not Available Not Available omeprazole 40 mg capsule,del ayed release TAKE 1 CAPSULE BY MOUTH EVERY DAY 2024 active Not Available Not Available Not Avai lable amoxicillin 875 mg tablet TAKE 1 TABLET BY MOUTH EVERY 12 HOURS FOR 10 DAYS 10/05 completed Not Available Not Available Not Available diazepam 2 mg tablet TAKE 1 TABLET BY MOUTH EVERY DAY 05/27 completed Not Available Not Available Not Available amlodipine 10 mg tablet TAKE 1 TABLET BY MOUTH EVERY DAY active Not Available Not Available No t Available erythromyci n 5 mg/gram (0.5 %) eye ointment APPLY 1 CM RIBBON INTO THE LOWER CONJUNCTI KIMBERYL SAC(S) IN THE AFFECTED EYE(S) BY OPHTHALMI C ROUTE 3 TIMES PER DAY 02/14 completed Not Available Not Available Not Available triamterene 37.5 mg-hydrochl orothiazide 25 mg tablet TAKE 1/2 TABLET BY MOUTH EVERY DAY 11/02 completed Not Available Not Available Not Available cephalexin 500 mg tablet TAKE 1 TABLET BY MOUTH EVERY 6 HOURS FOR 10 DAYS NEEDED 02/14 completed Not Available Not Available Not Available albuterol sulfate HFA 90 mcg/actuati on aerosol inhaler INHALE 2 PUFFS BY MOUTH EVERY 4 HOURS active Not Available Not Available No t Available dicyclomine 10 mg capsule Take 1 capsule 3 times a day by oral route as needed. 05/12 completed Not Available Not Available Not Available atenolol 50 mg tablet TAKE 1 TABLET BY MOUTH TWICE DAILY active Not Available Not Available No t Available amoxicillin 875 mg-potasssindy m clavulanate 125 mg tablet TAKE 1 TABLET BY MOUTH EVERY 12 HOURS FOR 7 DAYS 10/08 completed Not Available Not Available Not Available tobramycin 0.3 %-dexametha sone 0.1 % eye drops,suspe nsion INSTILL 1 DROP INTO AFFECTED EYE(S) BY OPHTHALMI C ROUTE EVERY 6 HOURS 02/14 completed Not Available Not Available Not Available Flovent HFA 110 mcg/actuati on aerosol inhaler INHALE 1 PUFF BY MOUTH EVERY DAY 11/02 completed Not Available Not Available Not Available amlodipine 1 per day 07/29 completed Not Available Not Available Not Available Tylenol active Not Available Not Avail able Not Available atenolol 50mg twice a day 07/29 completed Not Available Not Available Not Available fluticasone propionate daily 11/02 completed Not Available Not Available Not Available FeroSul 325 mg (65 mg iron) tablet TAKE 1 TABLET BY MOUTH TWICE DAILY 11/02 completed Not Available Not Available Not Available Virtussin AC 10 mg-100 mg/5 mL oral liquid 05/12 completed Not Available Not Available Not Available Arnuity Ellipta 100 mcg/actuati on powder for inhalation INHALE 1 PUFF BY MOUTH EVERY DAY active Not Available Not Available No t Available Paxlovid 300 mg (150 mg x 2)-100 mg tablets in a dose pack TK 2 NIRMATREL VIR TS AND 1 RITONAVIR T TOGETHER PO BID FOR 5 DAYS 10/05 completed Not Available Not Available Not Available Vitals Date Recorded Body height Body mass index (BMI) Body weight Heart rate Oxygen saturation Oxygen saturation in Arterial blood by Pulse oximetry Systolic blood pressure Diastolic blood pressure Provider Name and Address Organization Details Last Updated DateTime 4 172.72 cm 32 kg/m2 12392.1 2 g 95 /min 96 % 96 % 128 mm[Hg] 78 mm[Hg] Mary Carbajal [facility] 4 14:40:13 Date Recorded Body height Body mass index (BMI) Body weight Systolic blood pressure Diastolic blood pressure Provider Name and Address Organization Details Last Updated DateTime 06/14/2024 172.72 cm 32.2 kg/m2 03726.58 g 128 mm[Hg] 78 mm[Hg] Danielle Moar [facility] 4 14:33:09 Date Recorded Body height Heart rate Oxygen saturation Oxygen saturation in Arterial blood by Pulse oximetry Systolic blood pressure Diastolic blood pressure Provider Name and Address Organization Details Last Updated DateTime 5 172.72 cm 65 /min 99 % 99 % 130 mm[Hg] 86 mm[Hg] Mary Carbajal [facility] 5 10:13:29 Social History Question Answer Notes LastModified by Organizat ion Details LastModified Time Tobacco Smoking Status Never Smoker Not Available [facility] 04/25/2020 03:36:24 What Was The Date Of Your Most Recent Tobacco Screening? 10/05/2024 [email or web address] Information not available 10/05/2024 Sex: Unknown Functional Status Question Answer Note LastModified by Organization D etails LastModified Time Do you or have you ever used any other forms of tobacco or nicotine? No [email or web address] Information not available 06/26/2022 Mental Status None recorded. Family History Nothing Reported. Medical History No medical history recorded. Gynecological HistoryNo gynecological history recorded. Obstetrics History GPAL:G 0 P 0 0 0 0 Immunizations Vaccine Type Date Status Note Provider Nam e and Address Organization Details Recorded Time COVID-19, mRNA, LNP-S, PF, 30 mcg/0.3 mL dose 0 completed Kirsten graf [facility] 04/25/2021 12:08:50 COVID-19, mRNA, LNP-S, PF, 30 mcg/0.3 mL dose 1 completed Kirsten graf [facility] 04/25/2021 12:08:56 COVID-19, mRNA, LNP-S, PF, 30 mcg/0.3 mL dose 1 completed Kirsten graf [facility] 04/25/2021 12:09:07 Influenza, split virus, quadrivalent, preservative 1 completed SEVERINO QUICK [address] [place] [address], [address], [facility] 05/01/2021 15:46:54 zoster recombinant 2 completed SEVERINO QUICK [address] [place] [address], [address], [facility] 05/27/2023 15:57:21 Past Encounters Encounter ID Performer Location Encounter Start Date Encounter Closed Date Diagnosis/Indication Diagnosis SNOMED-CT Code Diagnosis ICD10 Code Diagnosis Note [id number] Je Osullivan [facility] [address] [facility], [place] [address] 10/29/2017 14:30:52 10/29/2017 17:00:19 Patellofemoral stress syndrome 252455043 M22.2X9 Discussed weight loss, ice Gastroesop hageal reflux disease 777986481 K21.9 Appt with GI was reschedule d until November, cut back prilosec to 40 mg in am Essential hypertension 86301714 I10 stable [id number] Je Osullivan [facility] [address] [facility], [place] [address] 03/27/2018 11:11:24 03/27/2018 11:44:58 Essential hypertension 34758103 I10 stable Acute sinusitis 35706854 J01.90 Headache 03492463 R51 Irritable bowel syndrome 81322695 K58.9 Asthma 144535476 J45.90 9 Gastroesop hageal reflux disease 850673895 K21.9 stable [id number] Je Osullivan [facility] [address] [facility],[place] [address] 07/29/2018 16:10:28 07/29/2018 16:52:30 Asthma 041134104 J45.909 Headache 55554333 R51 r/o trigeminal neuralgia Essential hypertension 20385936 I10 stable [id number] Je Osullivan [facility] [address] [facility],[place] [address] 05/12/2019 15:57:44 05/12/2019 16:29:40 Atypical chest pain 048079026 R07.89 continue care under cardio seems possible this could be muscular or costal chondritis , but advised to complete cardiac work up has tried otc pain relief without any noticeable difference Solitary n odule of lung 976599929 R91.1 due to repeat in anuary Essential hypertension 99980462 I10 stable Asthma 225838636 J45.90 9 generally asx Gastroesop hageal reflux disease 106761452 K21.9 Active or passive immunization 478640853 Z23 [id number] Je Osullivan [facility] [address] [facility], [place] [facility] [place] [address] 11/09/2019 14:11:07 11/09/2019 15:15:09 Asthma 083317139 J45.909 stable Adult [facility] examination 203965392 Z00.00 doing well working on increasing exercise [id number] Je Osullivan [facility] [address] [facility], [place] [facility] [place] [address] 01/15/2021 14:37:21 01/15/2021 15:39:51 Hypertensive disorder 74837390 I10 will increase dosage of medication Migraine 27748742 G43.90 9 will do full work up for migraine Neck pain 33884005 M54.2 will fu with neck XR [id number] Je Osullivan [facility] [address] [facility], [place] [address] 02/28/2021 14:31:11 02/28/2021 15:07:45 Asthma 901682541 J45.909 stable Acute otitis media 43571 03 H65.01 will start on augmentin for ear infection Right uppe r quadrant pain 601779942 R10.11 [place] [id number] Je Osullivan [facility] [address] [facility], [place] [facility] [place] [address] 05/01/2021 15:24:30 05/01/2021 16:48:19 Active or passive immunization 839433570 Z23 up to date Adult [facility] examination 091926746 Z00.00 BP is excellent Iron defic iency anemia 23806916 D50.8 stable will continue to monitor [id number] Je Osullivan [facility] [address] [facility], [place] [facility] [address] 08/15/2021 09:12:48 08/15/2021 16:23:34 Acute otitis media 5128611 H65.01 will start on augmentin for ear infection Vertigo 584624122 R42 continue at home treatment, avoid david maneuver until abx course is finished Maxillary sinus pain 301 731531 R51.0 due to infection of the right ear, start abx course [id number] Je Os[address] [facility] [address] [facility] [address] [address] 09/10/2021 10:54:23 09/11/2021 16:02:58 Serous otitis media 94009494 H65.01 start on steroids, and fu with me before her trip to [place] > also start on once a day dio will hold starting on triamteren e-HTCZ and valium course until she needs it [id number] Je Osullivan DO [facility] [address] [facility] [address],[place] [address] 05/07/2022 15:23:48 05/08/2022 08:52:09 Active or passive immunization 645248355 Z23 up to date Adult heal th examination 187325164 Z00.00 BP is excellent [id number] [facility] [address] [facility] [address],[place] [address] 06/26/2022 15:50:05 06/27/2022 12:09:27 Fracture of phalanx of finger 16132141 S62.664A following with ortho Concussion injury of brain 437022951 S06.0X0A will monitor itwill let me know if it doesn't improve Exudate on tonsils 85646 1008 J35.8 will fu with culture [id number] [facility] [address] [facility] [address] [address] 10/08/2022 09:39:19 10/08/2022 16:35:21 Bacterial conjunctivitis 576045313 H10.013 will start on dual therapysta rt on keflex and tobradex Acute laryngitis 0762556 J04.0 stable; unlikely strep at this time but will monitor [id number] Je Osullivan DO [facility] [address] [facility] [address] [address] 05/27/2023 15:25:05 05/27/2023 16:46:55 Active or passive immunization 987581962 Z23 up to date Adult heal th examination 056202697 Z00.00 BP is excellent Asthma 475948080 J45.20 stable Menopause 443825041 N95. 1 will start on paxil for the menopause symptoms which are significan t [id number] Je Osullivan [facility] [address] [facility],[place] [address] 06/27/2023 09:07:09 06/27/2023 14:53:42 [id number] Je Osullivan [facility] [address] [facility],[place] [address] 06/27/2023 11:26:13 06/27/2023 15:06:11 Menopause 235505831 N95.1 significan tly improved with addition of paxilwill continue on the 10 mg after discussion with patient Asthma 193859473 J45.20 stable [id number] Je Osullivan [facility] [address] [facility],[place] [address] 11/03/2023 14:24:42 11/04/2023 08:25:50 Depression screening 576477880 Z13.31 stable Easy bruising 355762739 R58 agreed to lab work for the easy bruising Abdominal pain 65389068 R10.9 will f/u with additional bloodwork [id number] Je Osullivan [facility] [address] [facility],[place] [address] 06/14/2024 14:22:36 06/14/2024 15:03:36 Adult health examination 368840966 Z00.00 BP is excellent [id number] Je Osullivan [facility] [address] [facility] [address] [address] 10/05/2024 10:06:32 10/06/2024 11:54:31 Osteopenia 888453867 M85.80 will set up for bone density Bone spur of right hand 6592523720 96860 M25.741 right ring fingerno interventi on needed at this time Menopause 102226147 N95. 1 continue paxil doing much better Health Concerns Section Related Observation LastModified by Organization Detai ls LastModified Time None Recorded Concern Status LastModified by Organization Details LastModified Time None Recorded Advance Directives Directive None Recorded Payers Encounter Date Sequence Insurance Name Policy Number Policy Matias Covered Member ID Matias Member ID Guarantor Name 06/27/2023 1 [employer] [place] [id number] Doreen A Evan [id number] Doreen A Evan 06/27/2023 1 [employer] [id number] Doreen A Evan [id number] Doreen A Evan 11/03/2023 1 [employer] [id number] Doreen A Evan [id number] 80 Doreen A Evan 06/14/2024 1 [employer] [id number] Doreen A Evan [id number] 80 Doreen A Evan 10/05/2024 1 [employer] [place] [id number] Doreen A Evan [id number] 80 Doreen A Evan Notes Date Note Type Note Provider Name a ia Address Organization Details Recorded Time 4 text/html 1 mos medication check The patient is participating in this appointment via telemedicine communication with a phone call/video calling service ([employer])The patient consents to use of these platforms in place of an in-person appointment due to either sick symptoms the patient is presenting with or current office closure due to COVID exposure in order to keep our office staff and patients safe the patient reports that her menopausal symptoms have much improved with the addition of paxilher hot flashes are much better controlledshe feels her mood has improved immenselyno longer feeling agitated or stressed or tearfulshe is sleeping and eating wellfeels like she did prior to starting menopause no side effects noted by patientno weight gain noted by patient all other medications are working well for her at this timedoesn't need any other refills at this time sent in a new script for paxil [facility] [address] [place] [address], [place], [phone], [facility] 06/27/2023 14:48:46 4 text/html c/o abnormal bruising the patient reports that she is having abnormal bruising around her abdomenthe patient reports that it also feels the pain and pulling in the right lower quadrant the patient reports that has been going on for about a month or sointermittently has some bruising the patient has normal urinating, digestionshx of hiatal hernia denies n/v/d, bowel changes, weight loss, or any other abnormal [facility] QUICK [address] [place] [address], [phone], [facility] 11/03/2023 15:03:19 4 text/html Annual WellnessReported bypatient.Diet and Nutrition:healthy diet; discussed vitamin and supplement use; discussed portion control; discussed maintaining calcium balance; discussed diet improvement Fracture Risk:no history of fractures; no recent explained fracture; no sudden unexplained fractures; no previous musculoskeletal injuries Physical Activity:exercises on a regular basis; recent increase in physical activity; good physical condition Additional Lifestyle Factors:no tobacco use; no alcohol intake; stopped drinking alcohol Depression Risk:never feels sad, empty, or tearful; no loss of interest in activities; no significant changes in weight; no sleep disturbances or insomnia; no agitation; no loss of energy; no feelings of worthlessness or guilt; no thoughts of suicide; no history of depression; no history of mood disorders Hearing:no loss of hearing Vision:no vision problems [facility] QUICK [address] [place], [phone], [facility] 06/14/2024 15:02:03 5 text/html c/o lump on the finger the patient is here for a new lump on at the base of her ring finger of her ringer finger, at the base of finger, at the MCPno intervention needed at this timeno bothering her at this time, no intervention neededpatient just wanted to know what it was discussed getting a bone density now since she is in menopause (went into menopause at 57 yo) having joint pain but otherwise no broken bones recentlyno falls recently doing well on the paxil, will continue on this dose [facility] QUICK [address] [place], [phone], [facility] 10/05/2024 10:33:46 OBGyn Episode No OBEpisode recorded.
--- OUTSIDE RECORDS SUMMARY | 2024-11-05 10:08 | XMS_ITS | Patient Health Record ---
Author Organization [facility] Address [address] [place] [address] Care Team Providers Care Divider Operator Name Role Phone Je Osullivan Primary Care Provider Adam Rogers [phone] Allergies Allergen (clinical drug ingredient) Drug/Non Drug Allergy documented on EMR Reaction Allergy Type Onset Date Status Sulfa Unknown Drug Allergy Active fentanyl Fentanyl Unknown Drug Allergy Active Reason For Referral No Information Medications Medication SIG (Take, Route, Frequency, Duration) Notes Start Date End Date Status Atenolol 25 MG 1 tablet Orally Once a day 02/08/20 15 Active Omeprazole 40 MG TK ONE C PO QD Oral for 90 Active Ranitidine HCl 300 MG TK 1 T PO QPM Oral for 30 Active Flovent Diskus 50 MCG/BLIST 1 puff Inhalation Twice a day Active Flonase 50 MCG/ACT 1 spray in each nost ril Nasally Once a day 02/07/2015 Active amLODIPine Besylate 5 MG TK 1 T PO QD Oral for 90 Active ZyrTEC Allergy 10 MG 1 tablet as needed Orally Once a day Active Problems Problem Type SNOMED Code ICD Code Onset Dates Problem Status W/U Status Risk Notes Problem 150805552 Irritable bowel syndrome with diarrhea (K58.0) Active confirmed Problem 247476724 Gastroesophageal reflux disease without esophagitis (K21.9) Active confirmed Problem 75829353 Hiatal hernia (K44.9) Active confirmed Problem 117573135 Esophageal spasm (K22.4) Active confirmed Problem 00134798 Irritable bowel syndrome with both constipation and diarrhea (K58.2) Active confirmed Plan Of Treatment Pending Test Test Name Order Date CELIAC PANEL #10 02/07/2015 Future Test Test Name Order Date UPPER GI ENDOSCOPY 02/07/2015 COLONOSCOPY 02/07/2015 Next Appt Details Provider Name:Adam Champion , 02/15/2025 09:10:00 AM, [address], [address], [place], [address], Insurance Providers Payer Name Payer Address Payer Phone Subscriber Number Group Number Insured Name Patient Relationship to Insured Coverage Start Date Coverage End Date [employer] [place] [address] [address] [place] [address] [id number] MAIRAGENO HAYES Self - patient is the insured Medical (General) History Medical History History ICD Code Asthma Denies NC,DM,CVA,renal disease GERD--upper GI series in 2 with the finding of a small hiatal hernia and reflux--she has had negative H. pylori serologies in the past--she had a negative gallbladder ultrasound in 2008--upper endoscopy in February 2015 revealed a moderate-sized hiatal hernia, but no evidence of esophagitis or Anderson's esophagus--biopsies negative for celiac disease, gastritis, and H. pylori HTN IBS-longstanding--normal duodenal biopsi es in February 2015 Colonoscopy in February 5 was normal-no polyps, no microscopic colitis, no inflammatory bowel disease Negative gallbladder U/S in 2014 Surgical History Surgery Date(Month/Year) [place] teeth extraction
== END 2024-11-05 09:51 | disposition home or self-care (01) ==
LOC: HO.MAMMO 09:50
PROVIDERS: PCP Internal Medicine; Visit Provider Physician Assistant
DX: Z13.820 Encounter for screening for osteoporosis (principal); M85.89 Other specified disorders of bone density and structure, multiple sites
CPT/HCPCS: 77080

== ENCOUNTER → 2024-11-05 10:00 | Outpatient (BNV) | payer OTHER, SELFPAY | PROVIDERS: PCP Internal Medicine; Visit Provider Radiology Diagnostic Radiology | DX: E28.39 Other primary ovarian failure (principal) | CPT/HCPCS: 77080 ==

== ENCOUNTER 2024-11-18 08:04 | Outpatient (AMB) | payer OTHER, SELFPAY ==
--- OUTSIDE RECORDS SUMMARY | 2024-11-18 08:06 | XMS_ITS | Data Portability ---
Author Organization [facility] Home Service Address [address] [place] [address] Assessment Encounter Date Assessment Date Assessment LastModified by Organization Details LastModified Time 06/27/2023 06/27/2023 Patient agreed and verbally consents to this audio and video Telehealth appointment via a secure platform [email or web address] Not available 06/27/2023 14:34:45 Plan of Treatment Reminders Order Date Submit Date Provider Last Modified By Organization Details Last Modified Time Details Appointments FOLLOW UP 15 2024 01:45P M SEVERINO QUICK Not available Not available Not available ANNUAL EXAM 2025 01:30P M SEVERINO QUICK Not available Not available Not available Lab gamma-glu tamyl transfera se (ggt), serum 2023 024 [facility], [address] [place] [address], [id number], 11/03/2023 14:58:38 amylase + lipase, serum 2023 024 [facility], [address] [place] [address], [id number], 11/03/2023 14:58:38 PT/PTT, plasma 2023 024 [facility], [address] [place] [address], [id number], 11/03/2023 14:58:38 CBC w/ auto diff 2023 024 [facility], [address] [place] [address], [address], 11/03/2023 14:58:38 PT/INR 2023 024 [facility], [address] [place] [address], [address], 11/03/2023 14:58:38 protein C + protein S, functiona l panel, plasma 2023 024 [facility], [address] [place] [address], [address], 11/07/2023 11:19:29 CMP, serum or plasma 2023 024 [facility], [address] [place] [address], [address], 11/04/2023 11:27:03 iron + total iron-bind ing capacity (TIBC), serum 2023 024 [facility], [address] [place] [address], [address], 11/03/2023 14:58:38 ferritin, serum or plasma 2023 024 [facility], [address] [place] [address], [address], 11/03/2023 14:58:38 vitamin B12 + folate, serum or blood 2023 024 [facility], [address] [place] [address], [address], 11/03/2023 14:58:38 Referral None recorded. Procedures None recorded. Surgeries None recorded. Imaging bone density 2024 025 [facility], [address] [place] [address], [id number], 10/19/2024 08:17:36 Medication Orders paroxetin e 10 mg tablet 2023 024 [id number] [address], [place], [id number], 06/27/2023 14:32:57 Patient TargetsNo targets recorded. Patient InstructionsNo instructions recorded. Reason for Referral None Reported. Results Created Date Observation Date Name Description Value Unit Range Abnormal Flag Note LastModifiedBy Organization Detail LastModifiedTime 03/17/20 24 03/04/2024 MAMMO , scree lauren, digit al, bilat eral No observ ation record ed. [email or web address] [address] [place], [address], 03/19/2024 10:55:02 11/06/1911/05/2024 bone densi ty No observ ation record ed. [email or web address] [address] [place], [address], 11/08/2024 14:54:29 Result Notes None recorded. Problems Name Problem SNOMED Code Status Onset Date Resolution Date Notes Provider Name and Address Organization Details Recorded Time Hiatal hernia 16030857 Active 2018 KATIE Morgan [address] [place], [address], [facility] 9 16:17:32 COVID-19 502651219 Active 202006/27/20 [facility] 1 08:28:23 Atypical chest pain 964935055 Active 2021 SEVERINO QUICK [address] [place], [address], [facility] 2 15:51:21 Fracture of phalanx of finger 15377316 Active 2022 SEVERINO QUICK [address] [place], [address], [facility] 3 16:43:58 Concussio n injury of brain 834057760 Active 2022 SEVERINO QUICK [address] [place] [address], [address], [facility] 3 16:44:44 Exudate on tonsils 948317208 Active 2022 SEVERINO QUICK [address] [place] [address], [address], [facility] 3 16:47:58 Postconcu ssion syndrome 08157270 Active 2022 SEVERINO QUICK [address] [place] [address], [address], [facility] 3 12:19:55 Bacterial conjuncti vitis 933144617 Active 2022 SEVERINO QUICK [address] [place] [address], [address], [facility] 3 09:25:43 Asthmatic bronchiti s 866929022 Active 2022 Je Osullivan, DO [address] [place] [address], [address], [facility] 3 09:37:11 Candidias is of mouth 19426628 Active 2022 SEVERINO QUICK [address] [place] [address], [address], [facility] 3 10:13:10 Menopause Active 2022 SEVERINO QUICK [address] [place] [address], [address], [facility] 3 15:47:31 Easy bruising 958094585 Active 2023 SEVERINO QUICK [address] [place] [address], [address], [facility] 4 14:55:26 Abdominal pain 77945757 Active 2023 SEVERINO QUICK [address] [place] [address], [address], [facility] 4 14:55:55 Exacerbat ion of intermitt ent asthma 427239250 Active 2023 SEVERINO QUICK [address] [place], [address], [facility] 4 09:31:54 Acute streptoco ccal pharyngit is Active 2023 SEVERINO QUICK [address] [place], [address], [facility] 4 15:05:36 Osteopeni a 822158643 Active 2024 SEVERINO QUICK [address] [place], [address], [facility] 5 10:24:01 Bone spur of right hand 093624097231 101 Active 2024 SEVERINO QUICK [address] [place], [address], [facility] 5 10:25:46 Asthma 842089380 [facility] 16:26:00 Gastroeso phageal reflux disease 744793334 [facility] 16:26:06 Essential hypertens ion 93648484 [facility] 16:26:14 Irritable bowel syndrome 66660115 Active [facility] 16:26:21 Notes:patient still has swati od (sees [employer] regularly) Problem Notes None recorded. Medical Equipment None Reported. Allergies Allergen ID Allergen Name Allergen Category Reaction Reaction Severity Criticality Documentation Date Start Date Code Code System Note Provider Name and Address Organization Details Recorded Time 1233 Substance with sulfonami de structure and antibacte rial mechanism of action (substanc e) medicatio n Not available Not available Not available 10/28/2017 61258 8003 SNOMED Gris graf [facility] 8 16:25:38 1234 fentanyl medicatio n Not available Not available Not available 10/28/2017 4337 RxNorm Gris Jose graf [place] [facility] 8 16:25:49 Medications Name [...] TAKE 1 TABLET BY MOUTH EVERY DAY 2024 active Not Available Not Available Not Avai lable erythromyci n 5 mg/gram (0.5 %) eye ointment APPLY 1 CM RIBBON INTO THE LOWER CONJUNCTI KIMBERLY SAC(S) IN THE AFFECTED EYE(S) BY OPHTHALMI [...] Not Available No t Available amoxicillin 875 mg-potassiu m clavulanate 125 mg tablet TAKE 1 [...] Not Available Vitals Date Recorded Body height Heart rate Oxygen saturation Oxygen saturation in Arterial blood by Pulse oximetry Systolic blood pressure Diastolic blood pressure Provider Name and Address Organization Details Last Updated DateTime 5 172.72 cm 65 /min 99 % 99 % 130 mm[Hg] 86 mm[Hg] Mary Carbajal [facility] 5 10:13:29 Date Recorded Body height Body mass index (BMI) Body weight Heart rate Oxygen saturation Oxygen saturation in Arterial blood by Pulse oximetry Systolic blood pressure Diastolic blood pressure Provider Name and Address Organization Details Last Updated DateTime 4 172.72 cm 32 kg/m2 38667.1 2 g 95 /min 96 % 96 % 128 mm[Hg] 78 mm[Hg] Mary Carbajal [facility] 4 14:40:13 Date Recorded Body height Body mass index (BMI) Body weight Systolic blood pressure Diastolic blood pressure Provider Name and Address Organization Details Last Updated DateTime 06/14/2024 172.72 cm 32.2 kg/m2 10955.58 g 128 mm[Hg] 78 mm[Hg] Danielle Izquierdomond [facility] 4 14:33:09 Social History Question Answer Notes LastModified by Organizat ion Details LastModified Time Tobacco Smoking Status Never Smoker Not Available [facility] 04/25/2020 03:36:24 What Was The Date Of [...] mcg/0.3 mL dose 0 completed Kirsten graf [facility] 04/25/2021 12:08:50 COVID-19, mRNA, LNP-S, PF, 30 mcg/0.3 mL dose 1 completed Kirsten graf [facility] 04/25/2021 12:08:56 COVID-19, mRNA, LNP-S, PF, 30 mcg/0.3 mL dose 1 completed Kirsten graf [facility] 04/25/2021 12:09:07 Influenza, split virus, quadrivalent, preservative 1 completed SEVERINO QUICK [address] [place], [address], [facility] 05/01/2021 15:46:54 zoster recombinant 2 completed SEVERINO QUICK [address] [place], [address], [facility] 05/27/2023 15:57:21 Past Encounters Encounter ID Performer Location Encounter Start Date Encounter Closed Date Diagnosis/Indication Diagnosis SNOMED-CT Code Diagnosis ICD10 Code Diagnosis Note [id number] Je Osullivan [facility] [address] [facility],[place] [address] 10/29/2017 14:30:52 10/29/2017 17:00:19 Patellofemoral stress syndrome 891313417 M22.2X9 Discussed weight loss, ice Gastroesop hageal reflux disease 684611216 K21.9 Appt with GI was reschedule d until November, cut back prilosec to 40 mg in am Essential hypertension 78035501 I10 stable [id number] Je Millermandie [facility] [address] [facility],[place] [address] 03/27/2018 11:11:24 03/27/2018 11:44:58 Essential hypertension 80825508 I10 stable Acute sinusitis 47750515 J01.90 Headache 58365223 R51 Irritable bowel syndrome 59290254 K58.9 Asthma 225168370 J45.90 9 Gastroesop hageal reflux disease 888458825 K21.9 stable [id number] Je Jacinto Shi [facility] [address] [facility],[place] [address] 07/29/2018 16:10:28 07/29/2018 16:52:30 Asthma 540193965 J45.909 Headache 92012558 R51 r/o trigeminal neuralgia Essential hypertension 10025723 I10 stable [id number] Je GarthRaina Osullivan [facility] [address] [facility],[place] [address] 05/12/2019 15:57:44 05/12/2019 16:29:40 Atypical chest pain 837425845 R07.89 continue care under cardio seems possible this could be muscular or costal chondritis , but advised to complete cardiac work up has tried otc pain relief without any noticeable difference Solitary n odule of lung 226343058 R91.1 due to repeat in anuary Essential hypertension 69689261 I10 stable Asthma 636415099 J45.90 9 generally asx Gastroesop hageal reflux disease 561556111 K21.9 Active or passive immunization 576500006 Z23 [id number] Je Osullivan [facility] [address] [facility] [address] [address] 11/09/2019 14:11:07 11/09/2019 15:15:09 Asthma 123007825 J45.909 stable [facility] examination 438414851 Z00.00 doing well working on increasing exercise [id number] Je Osullivan [facility] [address] [facility] [address] [address] 01/15/2021 14:37:21 01/15/2021 15:39:51 Hypertensive disorder 72048238 I10 will increase dosage of medication Migraine 06337252 G43.90 9 will do full work up for migraine Neck pain 54365489 M54.2 will fu with neck XR [id number] Je Osullivan [facility] [address] [facility],[place] [address] 02/28/2021 14:31:11 02/28/2021 15:07:45 Asthma 303687738 J45.909 stable Acute otitis media 59286 03 H65.01 will start on augmentin for ear infection Right uppe r quadrant pain 117852485 R10.11 [place] [id number] Je Osullivan [facility] [address] [facility] [address] [address] 05/01/2021 15:24:30 05/01/2021 16:48:19 Active or passive immunization 372637726 Z23 up to date [facility] examination 808234004 Z00.00 BP is excellent Iron defic iency anemia 40830948 D50.8 stable will continue to monitor [id number] Je Osullivan [facility] [address] [facility] [address] [address] 08/15/2021 09:12:48 08/15/2021 16:23:34 Acute otitis media 3779333 H65.01 will start on augmentin for ear infection Vertigo 069768202 R42 continue at home treatment, avoid david maneuver until abx course is finished Maxillary sinus pain 301 390424 R51.0 due to infection of the right ear, start abx course [id number] Je Osullivan DO [facility] [address] [facility] [address] [address] 09/10/2021 10:54:23 09/11/2021 16:02:58 Serous otitis media 03945351 H65.01 start on steroids, and fu with me before her trip to [place] > also start on once a day sudiza will hold starting on triamteren e-HTCZ and valium course until she needs it [id number] Je Osullivan [facility] [address] [place] [address] [address] [address] [place] [address] 05/07/2022 15:23:48 05/08/2022 08:52:09 Active or passive immunization 840777684 Z23 up to date Adult heal th examination 880692083 Z00.00 BP is excellent [id number] Je Osullivan DO [facility] [address] [facility] [address] [address] 06/26/2022 15:50:05 06/27/2022 12:09:27 Fracture of phalanx of finger 70843026 S62.664A following with ortho Concussion injury of brain 687000336 S06.0X0A will monitor itwill let me know if it doesn't improve Exudate on tonsils 69702 1008 J35.8 will fu with culture [id number] Je Osullivan DO [facility] [address] [facility] [address] [address] 10/08/2022 09:39:19 10/08/2022 16:35:21 Bacterial conjunctivitis 685132299 H10.013 will start on dual therapysta rt on keflex and tobradex Acute laryngitis 7055974 J04.0 stable; unlikely strep at this time but will monitor [id number] Je Osullivan DO [facility] [address] [facility] [address] [address] 05/27/2023 15:25:05 05/27/2023 16:46:55 Active or passive immunization 003039483 Z23 up to date Adult heal th examination 402541444 Z00.00 BP is excellent Asthma 213106770 J45.20 stable Menopause 097973108 N95. 1 will start on paxil for the menopause symptoms which are significan t [id number] Je Osullivan [facility] [address] [facility] [address] [address] 06/27/2023 09:07:09 06/27/2023 14:53:42 [id number] Je Osullivan [facility] [address] [facility] [address] [address] 06/27/2023 11:26:13 06/27/2023 15:06:11 Menopause 939505021 N95.1 significan tly improved with addition of paxilwill continue on the 10 mg after discussion with patient Asthma 400748690 J45.20 stable [id number] [facility] [address] [facility] [address] [address] 11/03/2023 14:24:42 11/04/2023 08:25:50 Depression screening 388511839 Z13.31 stable Easy bruising 678641476 R58 agreed to lab work for the easy bruising Abdominal pain 98823326 R10.9 will f/u with additional bloodwork [id number] [facility] [address] [facility],[place] [address] 06/14/2024 14:22:36 06/14/2024 15:03:36 Adult health examination 684594308 Z00.00 BP is excellent [id number] Je Osullivan [facility] [address] [facility] [address] [address] 10/05/2024 10:06:32 10/06/2024 11:54:31 Osteopenia 739441667 M85.80 will set up for bone density Bone spur of right hand 6308653965 82783 M25.741 right ring fingerno interventi on needed at this time Menopause 388367166 N95. 1 continue paxil doing much better [...] [employer]) [id number] Doreen A Evan [id number] 80 Doreen A Evan 06/27/2023 1 [place]UE [employer] [id number] Doreen A Evan [id number] 80 Doreen A Evan 11/03/2023 1 [employer] [id number] Doreen A Evan [id number] 80 Doreen A Evan 06/14/2024 1 [place] [id number] Doreen A Evan [id number] 80 Doreen A Evan 10/05/2024 1 [employer] [id number] Doreen A Evan [id number] 80 Doreen A Evan Notes Date Note Type Note Provider Name a nd Address Organization Details Recorded Time 4 text/html 1 mos medication check The patient is participating in this appointment via telemedicine communication with a phone call/video calling service (Doxy)The patient consents to use of these platforms [...] a new script for paxil SEVERINO QUICK [address] [place] [address], [address], [facility] 06/27/2023 14:48:46 4 [...] loss, or any other abnormal SEVERINO QUICK [address] [place], [address], [facility] 11/03/2023 15:03:19 4 text/html Annual WellnessReported bypatient.Diet [...] hearing Vision:no vision problems SEVERINO QUICK [address] [place], [address], [facility] 06/14/2024 15:02:03 5 [...] continue on this dose SEVERINO QUICK [address] [place], [address], [facility] 10/05/2024 10:33:46 OBGyn Episode No OBEpisode recorded.
[2024-11-18 08:22] VITALS: BP 108/68; PULSE 67; TEMP 37.1; O2SAT 99; BMI 33.9
--- NOTE | 2024-11-18 08:22 | MHC.OFFWIV ---
Intake Vital Signs 11/18/24 08:22 Height 5 ft 6 in Weight 210 lb BMI 33.9 BP 108/68 Blood Pressure Location Rt brachial Position Sitting Pulse 67 Pulse Source Pulse Oximeter Temp 98.8 F Temp Source Oral Pulse Oximetry (%) 99 Oxygen Delivery Method Room Air Intake Visit Reasons: EP ? strep throat Patient Tobacco Use Status: Never used Tobacco Allergies fentanyl [FENTANYL] Allergy (Severe, Verified 11/18/24 08:22) NAUSEA AND VOMITING-SEVERE, nausea and vomiting meperidine [From DEMEROL] Allergy (Severe, Verified 11/18/24 08:22) SEVERE N/V Sulfa (Sulfonamide Antibiotics) [Sulfa (Sulfonamides)] Allergy (Mild, Verified 11/18/24 08:22) HIVES scopolamine [SCOPOLAMINE] Adverse Reaction (Severe, Verified 11/18/24 08:22) SEVERE BALANCE ISSUES Do you need a note to return to daycare/school/sports/work: No HPI HPI Comments History of Present Illness Details History - The patient is a 59-year-old female presenting with a sore throat and white spots in the throat x2 days. - Symptoms commenced the day after attending a concert where significant vocal strain was experienced. - She reports recent exposure to a family member with confirmed streptococcal pharyngitis. - There is no reported fever, lymphadenopathy, or cough. - Patient has asthma and takes daily allergy medications, but notes no exacerbation at present. Physical Exam General: Cooperative, healthy appearing, comfortable and no acute distress Orientation/consciousness: Patient oriented x3 Limitations: No limitations Head: Normal to inspection Ears: Hearing grossly normal bilaterally, external ears normal and TM's with erythema bilaterally Nose: Normal external nose present, Normal nares present and No nasal discharge present Face and sinus: Normal facial exam and Yes sinuses nontender Mouth: Normal oral and palatal mucosa present and moist mucous membranes Throat: Yes tonsils normal, Yes uvula midline. Posterior oropharynx erythema with exudates Eyes: Appearance normal, both eyes and all related structures Neck: Normal visual inspection Respiratory: Normal respiratory effort, able to speak in complete sentences, no respiratory distress, not tachypneic, no tripod positioning and no use of accessory muscles Skin: No rashes or lesions noted Neuro: Patient oriented x3 Extremities: Normal to inspection and Yes no clubbing, cyanosis or edema [facility] Medical History IBS (irritable bowel syndrome) GERD (gastroesophageal reflux disease) Asthma Hypertension Surgical History H/O dilation and curettage Family History Father Hypertension Father Heart abnormality Mother Alzheimer disease Social History Household Members: Significant Other Housing: House Alcohol intake: current Alcohol intake frequency: holidays/special occasions only Patient Tobacco Use Status: Never used Tobacco Current occupational status: employed 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[employer] [place] Sexual orientation: Straight/Heterosexual Gender identity: Female Female Reproductive History Menstrual Age of Menarche: 10 Review of Systems Const All systems reviewed & are unremarkable except as noted in HPI and below Physical Exam Vital Signs: Last Vital Signs Temp 98.8 F 11/18/24 08:22 Pulse 67 11/18/24 08:22 BP 108/68 11/18/24 08:22 Pulse Ox 99 11/18/24 08:22 Oxygen Delivery Method Room Air 11/18/24 08:22 BMI result Body Mass Index 33.9 Assessment & Plan Assessment & Plan (1) Strep pharyngitis: Code(s): J02.0 - Streptococcal pharyngitis Plan: VSS, pt well appearing and PE unremarkable for exudates in posterior oropharynx. Negative rapid strep. Centor score 5-10% but with known exposure, will treat. Treatment for potential streptococcal pharyngitis was initiated with amoxicillin. A prescription for amoxicillin 500 mg twice daily for 10 days was sent to [facility]. The patient's asthma and allergic rhinitis are acknowledged but stable, requiring no immediate action. She is advised to monitor her symptoms and seek further evaluation if necessary. Patient was informed and verbally consented to the use of an ambient scribe for clinic note documentation during this visit Medications: New amoxicillin 500 mg PO Q12H 20 tabs 0RF Coding Level of Care Code New Pt Level 3 (29327) Diagnoses Strep pharyngitis J02.0
== END 2024-11-18 08:45 | disposition home or self-care (01) ==
PROVIDERS: PCP Internal Medicine; Visit Provider Physician Assistant
DX: Z13.9 Encounter for screening, unspecified (principal); J02.0 Streptococcal pharyngitis

== ENCOUNTER → 2024-11-18 08:04 | Outpatient (BNVA) | payer OTHER, SELFPAY | PROVIDERS: PCP Internal Medicine; Visit Provider Physician Assistant | DX: J02.0 Streptococcal pharyngitis (principal); J45.909 Unspecified asthma, uncomplicated | CPT/HCPCS: 87880 ==

== ENCOUNTER 2025-03-10 07:49 | Outpatient (REF) | payer OTHER, SELFPAY ==
--- OUTSIDE RECORDS SUMMARY | 2025-03-10 07:55 | XMS_ITS | Patient Health Record ---
Author Organization [facility] Address [address] [place] [address] Care Team Providers Care Route Rider Supervisor Name Role Phone Je Osullivan Primary Care Provider Adam Rogers [phone] Allergies Allergen (clinical drug ingredient) Drug/Non Drug Allergy documented on EMR Reaction Allergy Type Onset Date Status Sulfa Unknown Drug Allergy Active fentanyl Fentanyl Unknown Drug Allergy Active Reason For Referral No Information Medications Medication SIG (Take, Route, Frequency, Duration) Notes Start Date End Date Status ZyrTEC Allergy 10 MG 1 tablet as needed Orally Once a day Active Atenolol 50 MG 1 tablet Orally Once a day 02/08/20 15 Active Flonase 50 MCG/ACT 1 spray in each nost ril Nasally Once a day 02/07/2015 Active Omeprazole 40 MG TK ONE C PO QD Oral for 90 Active amLODIPine Besylate 5 MG TK 1 T PO QD Oral for 90 Active Tirzepatide 2.5 MG/0.5ML as directed Subcutaneous Active Immunizations Vaccine Route Administration Date Status Comme nts Influenza Unknown 03/09/2024 Administered Problems Problem Type SNOMED Code ICD Code Onset Dates Problem Status W/U Status Risk Notes Problem Colon cancer screening (441098858) Colon cancer screening (Z12.11) Active confirmed Problem 709484100 Irritable bowel syndrome with diarrhea (K58.0) Active confirmed Problem 586092769 Gastroesophageal reflux disease without esophagitis (K21.9) Active confirmed Problem 58562979 Hiatal hernia (K44.9) Active confirmed Problem 524098841 Esophageal spasm (K22.4) Active confirmed Problem 80883377 Irritable bowel syndrome with both constipation and diarrhea (K58.2) Active confirmed Vital Signs Temperature 97.3 degrees Fahrenheit 02/15/2025 Blood pressure diastolic 01 mm Hg 02/15/2025 Height 66 in 02/15/2025 Blood pressure systolic 001 mm Hg 02/15/2025 Weight 208.4 lbs 02/15/2025 BMI 33.63 kg/m2 02/15/2025 Procedures Procedure Date Ordered Date Performed Result Body Sit e UPPER GI ENDOSCOPY 02/15/2025 N/A COLONOSCOPY 02/15/2025 N/A Encounters Encounter Location Date Provider Diagnosis [facility] [address] [place] [address] 02/15/2025 Adam Champion Gastroesophageal ref lux disease without esophagitis K21.9 ; Irritable bowel syndrome K58.9 ; Hiatal hernia K44.9 and Colon cancer screening Z12.11 Assessments Encounter Date Diagnosis (ICD Code) Assessment Notes Treatment Notes Treatment Clinical Notes Section Notes 02/15/2025 Irritable bowel syndrome (ICD-10 - K58.9) Overall, Staci appears well and does not appear to be having any new or worrisome GI complaints. Her reflux seems to be stable on her daily omeprazole. We did review that obviously dietary discretion and weight loss will definitely help to improve things as well. She is somewhat concerned about her intermittent symptoms and the longstanding use of omeprazole. She would like to undergo a follow-up endoscopy to be sure there has been no changes since the one 10 years ago. This will be scheduled for her. Her irritable bowel syndrome seems to be quite stable and we did review that she should continue her daily Metamucil, as well as continuing to try to eat as healthy as possible with increased dietary fiber. She will also undergo a follow-up screening colonoscopy on the same day given her negative exam in February 2015. We did review the rationale for that in regard to colorectal cancer prevention and/or early detection. Full consent has been obtained from her for both procedures, including risks of bleeding and perforation. The procedures will be done with monitored anesthesia care. She was given the below instruction regarding adjustment of her medication for the procedure. Staci was comfortable with this plan. Thank you again for allowing me to participate in Staci's care. I shall continue to keep you advised of her progress. 02/15/2025 Gastroesophageal reflux disease without esophagitis (ICD-10 - K21.9) Overall, Staci appears well and does not appear to be having any new or worrisome GI complaints. Her reflux seems to be stable on her daily omeprazole. We did review that obviously dietary discretion and weight loss will definitely help to improve things as well. She is somewhat concerned about her intermittent symptoms and the longstanding use of omeprazole. She would like to undergo a follow-up endoscopy to be sure there has been no changes since the one 10 years ago. This will be scheduled for her. Her irritable bowel syndrome seems to be quite stable and we did review that she should continue her daily Metamucil, as well as continuing to try to eat as healthy as possible with increased dietary fiber. She will also undergo a follow-up screening colonoscopy on the same day given her negative exam in February 2015. We did review the rationale for that in regard to colorectal cancer prevention and/or early detection. Full consent has been obtained from her for both procedures, including risks of bleeding and perforation. The procedures will be done with monitored anesthesia care. She was given the below instruction regarding adjustment of her medication for the procedure. Staci was comfortable with this plan. Thank you again for allowing me to participate in Staci's care. I shall continue to keep you advised of her progress. 02/15/2025 Hiatal hernia (ICD-10 - K44.9) Overall, Staci appears well and does not appear to be having any new or worrisome GI complaints. Her reflux seems to be stable on her daily omeprazole. We did review that obviously dietary discretion and weight loss will definitely help to improve things as well. She is somewhat concerned about her intermittent symptoms and the longstanding use of omeprazole. She would like to undergo a follow-up endoscopy to be sure there has been no changes since the one 10 years ago. This will be scheduled for her. Her irritable bowel syndrome seems to be quite stable and we did review that she should continue her daily Metamucil, as well as continuing to try to eat as healthy as possible with increased dietary fiber. She will also undergo a follow-up screening colonoscopy on the same day given her negative exam in February 2015. We did review the rationale for that in regard to colorectal cancer prevention and/or early detection. Full consent has been obtained from her for both procedures, including risks of bleeding and perforation. The procedures will be done with monitored anesthesia care. She was given the below instruction regarding adjustment of her medication for the procedure. Staci was comfortable with this plan. Thank you again for allowing me to participate in Staci's care. I shall continue to keep you advised of her progress. 02/15/2025 Colon cancer screening (ICD-10 - Z12.11) Overall, Staci appears well and does not appear to be having any new or worrisome GI complaints. Her reflux seems to be stable on her daily omeprazole. We did review that obviously dietary discretion and weight loss will definitely help to improve things as well. She is somewhat concerned about her intermittent symptoms and the longstanding use of omeprazole. She would like to undergo a follow-up endoscopy to be sure there has been no changes since the one 10 years ago. This will be scheduled for her. Her irritable bowel syndrome seems to be quite stable and we did review that she should continue her daily Metamucil, as well as continuing to try to eat as healthy as possible with increased dietary fiber. She will also undergo a follow-up screening colonoscopy on the same day given her negative exam in February 2015. We did review the rationale for that in regard to colorectal cancer prevention and/or early detection. Full consent has been obtained from her for both procedures, including risks of bleeding and perforation. The procedures will be done with monitored anesthesia care. She was given the below instruction regarding adjustment of her medication for the procedure. Staci was comfortable with this plan. Thank you again for allowing me to participate in Staci's care. I shall continue to keep you advised of her progress. Plan Of Treatment Pending Test Test Name Order Date UPPER GI ENDOSCOPY 02/15/2025 COLONOSCOPY 02/15/2025 CELIAC PANEL #10 02/07/2015 Future Test Test Name Order Date UPPER GI ENDOSCOPY 02/07/2015 COLONOSCOPY 02/07/2015 Next Appt Details Provider Name:Adam Champion , 05/18/2025 07:30:00 AM, [address] [place] [address] , [place], [place], [id number], Insurance Providers Payer Name Payer Address Payer Phone Subscriber Number Group Number Insured Name Patient Relationship to Insured Coverage Start Date Coverage End Date [employer] [address] [address] [place] [address] [id number] Self - patient is the insured Medical (General) History Medical History History ICD Code Asthma Denies VT,DM,CVA,renal disease GERD- upper GI series in 2 with the finding of a small hiatal hernia and reflux- she has had negative H. pylori serologies in the past- she had a negative gallbladder ultrasound in 2008- upper endoscopy in February 2015 revealed a moderate-sized hiatal hernia, but no evidence of esophagitis or Anderson's esophagus- biopsies negative for celiac disease, gastritis, and H. pylori HTN IBS-longstanding- normal duodenal biopsi es in February 2015 Colonoscopy in February 5 was normal-no polyps, no microscopic colitis, no inflammatory bowel disease Negative gallbladder U/S in 2014 Surgical History Surgery Date(Month/Year) D & C x 2 [place] teeth extraction
== END 2025-03-10 07:50 | disposition home or self-care (01) ==
LOC: HO.MAMMO 07:49
PROVIDERS: PCP Internal Medicine; Visit Provider Internal Medicine
DX: Z12.31 Encounter for screening mammogram for malignant neoplasm of breast (principal)
CPT/HCPCS: 77063; 77067

== ENCOUNTER → 2025-03-10 08:00 | Outpatient (BNV) | payer OTHER, SELFPAY | PROVIDERS: PCP Internal Medicine; Visit Provider Internal Medicine | DX: Z12.31 Encounter for screening mammogram for malignant neoplasm of breast (principal) | CPT/HCPCS: 77063; 77067 ==

== ENCOUNTER 2025-03-28 07:25 | Outpatient (REF) | payer OTHER, SELFPAY | END 2025-03-28 07:26 | disposition home or self-care (01) | LOC: HO.LNP 07:25 | PROVIDERS: PCP Internal Medicine; Visit Provider Obstetrics & Gynecology | DX: Z01.419 Encounter for gynecological examination (general) (routine) without abnormal findings (principal); Z11.51 Encounter for screening for human papillomavirus (HPV) | CPT/HCPCS: 87626; 88175 ==

== ENCOUNTER 2025-03-28 07:25 | Outpatient (AMB) | payer OTHER, SELFPAY ==
--- OUTSIDE RECORDS SUMMARY | 2025-03-28 07:27 | XMS_ITS | Data Portability ---
Author Organization [facility], Telehealth Patient Home Address [address] [place] [address] Assessment No assessment recorded. Plan of Treatment Reminders Order Date Submit Date Provider Last Modified By Organization Details Last Modified Time Details Appointments ANNUAL EXAM 2025 01:30P M SEVERINO QUICK Not available Not available Not available Lab gamma-glu tamyl transfera se (ggt), serum 2023 024 [facility], [address] [place] [address], [id number], 11/03/2023 14:58:38 amylase + lipase, serum 2023 024 [facility], [address] [place] [address], [id number], 11/03/2023 14:58:38 PT/PTT, plasma 2023 024 [facility], [address] [place] [address], [id number], 11/03/2023 14:58:38 CBC w/ auto diff 2023 024 [facility], [address] [place] [address], [id number], 11/03/2023 14:58:38 PT/INR 2023 024 [facility], [address] [place] [address], [id number], 11/03/2023 14:58:38 protein C + protein S, functiona l panel, plasma 2023 024 [facility], [address] [place] [address], [id number], 11/07/2023 11:19:29 CMP, serum or plasma 2023 024 [facility], [address] [place] [address], [id number], 11/04/2023 11:27:03 iron + total iron-bind ing capacity (TIBC), serum 2023 024 [facility], [address] [place] [address], [id number], 11/03/2023 14:58:38 ferritin, serum or plasma 2023 024 [facility], [address] [place] [address], [id number], 11/03/2023 14:58:38 vitamin B12 + folate, serum or blood 2023 024 [facility], [address] [place] [address], [id number], 11/03/2023 14:58:38 Referral None recorded. Procedures None recorded. Surgeries None recorded. Imaging bone density 2024 025 [facility], [address] [place] [address], [id number], 10/19/2024 08:17:36 Medication Orders cyclobenz aprine 10 mg tablet 2024 025 [facility] #[id number], [address], [place], [id number], 12/29/2024 16:30:17 nystatin 100,000 unit/mL oral suspensio n 2024 025 [facility] #[id number], [address], [place], [id number], 11/26/2024 14:12:20 Zepbound 2.5 mg/0.5 mL subcutane ous pen injector 2024 025 [facility] #[id number], [address], [place], [id number], 11/26/2024 14:09:05 Patient TargetsNo targets recorded. Patient InstructionsNo instructions recorded. Reason for Referral None Reported. Results Created Date Observation Date Name Description Value Unit Range Abnormal Flag Note LastModifiedBy Organization Detail LastModifiedTime 03/17/20 24 03/04/2024 MAMMO , scree lauren, digit al, bilat eral No observ ation record ed. [email or web address] [address] [place], [address], 03/19/2024 10:55:02 11/06/19 25 11/05/2024 bone densi ty No observ ation record ed. [email or web address] [address] [place], [address], 11/08/2024 14:54:29 03/14/20 25 03/10/2025 MAMMO kathryn, digit al, bilat eral No observ ation record ed. [email or web address] [address] [place], [address], 03/14/2025 14:20:21 Result Notes None recorded. Problems Name Problem SNOMED Code Status Onset Date Resolution Date Notes Provider Name and Address Organization Details Recorded Time Asthma 661647281 Active 2017 [facility] 8 16:26:00 Gastroeso phageal reflux disease 703890561 Active 2017 [facility] 8 16:26:06 Essential hypertens ion 09497102 [facility] 16:26:14 Irritable bowel syndrome 08133887 [facility] 16:26:21 Hiatal hernia 73575870 Active 2018 Cathy KATIE [address] [place], [address], [facility] 9 16:17:32 COVID-19 888698588 Active 202006/27/20 [facility] 1 08:28:23 Atypical chest pain 781549313 Active 2021 SEVERINO QUICK [address] [place] [address], [address], [facility] 2 15:51:21 Fracture of phalanx of finger 77276534 Active 2022 SEVERINO QUICK [address] [place] [address], [address], [facility] 3 16:43:58 Concussio n injury of brain 847044004 Active 2022 SEVERINO QUICK [address] [place] [address], [address], [facility] 3 16:44:44 Exudate on tonsils 619023823 Active 2022 SEVERINO QUICK [address] [place] [address], [address], [facility] 3 16:47:58 Postconcu ssion syndrome 35459741 Active 2022 SEVERINO QUICK [address] [place] [address], [address], [facility] 3 12:19:55 Bacterial conjuncti vitis 417210462 Active 2022 SEVERINO QUICK [address] [place] [address], [address], [facility] 3 09:25:43 Asthmatic bronchiti s 533911442 Active 2022 Je Osullivan DO [address] [place], [address], [facility] 3 09:37:11 Candidias is of mouth 00228925 Active 2022 SEVERINO QUICK [address] [place], [address], [facility] 5 14:11:53 Menopause Active 2022 SEVERINO QUICK [address] [place], [address], [facility] 3 15:47:31 Easy bruising 667292748 Active 2023 SEVERINO QUICK [address] [place], [address], [facility] 4 14:55:26 Abdominal pain 18938070 Active 2023 SEVERINO QUICK [address] [place], [address], [facility] 4 14:55:55 Exacerbat ion of intermitt ent asthma 790725567 Active 2023 SEVERINO QUICK [address] [place] [address], [address], [facility] 4 09:31:54 Acute streptoco ccal pharyngit is Active 2023 SEVERINO QUICK [address] [place], [address], [facility] 4 15:05:36 Osteopeni a 100686299 Active 2024 SEVERINO QUICK [address] [place], [address], [facility] 5 14:00:06 Bone spur of right hand 684802133031 101 Active 2024 SEVERINO QUICK [address] [place], [address], [facility] 5 10:25:46 Spasm of muscle of lower back 468377837799 75488 Active 2024 SEVERINO QUICK [address] [place], [address], [facility] 5 16:28:50 Notes:patient still has swati od (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 Medical Equipment None Reported. Allergies Allergen ID Allergen Name Allergen Category Reaction Reaction Severity Criticality Documentation Date Start Date Code Code System Note Provider Name and Address Organization Details Recorded Time 1233 Substance with sulfonami de structure and antibacte rial mechanism of action (substanc e) medicatio n Not available Not available Not available 10/28/2017 39973 8003 SNOMED Griskelsey Garcia [facility] 8 16:25:38 1234 fentanyl medicatio n Not available Not available Not available 10/28/2017 4337 RxNorm Griskelsey Garcia [facility] 8 16:25:49 Medications Name Sig Start Date Stop Date Status Note LastModified by Organization Details LastModified Time cyclobenzap rine 10 mg tablet TAKE 1 TABLET BY MOUTH TWICE DAILY FOR 14 DAYS NEEDED active Not Available Not Available No t Available amoxicillin 500 mg capsule 01/15 completed Not Available Not Available Not Available fluconazole 100 mg tablet TAKE 1 TABLET BY MOUTH EVERY DAY FOR 7 DAYS 06/14 completed Not Available Not Available Not Available nystatin 100,000 unit/mL oral suspension SHAKE LIQUID AND TAKE 5 ML BY MOUTH FOUR TIMES DAILY FOR 5 DAYS active Not Available Not Available No t Available prednisone 10 mg tablet 50 mg x 2 days40 mg x 2 days30 mg x 2 days20 mg x 2 days10 mg x 2 days 06/14 completed Not Available Not Available Not Available paroxetine 10 mg tablet TAKE 1 TABLET BY MOUTH EVERY DAY 2024 active Not Available Not Available Not Avai lable cefuroxime axetil 250 mg tablet Take 1 [...] TAKE 1 CAPSULE BY MOUTH EVERY DAY active Not Available Not Available No t Available amoxicillin 500 mg tablet TAKE 1 TABLET BY MOUTH EVERY 12 HOURS 12/29 completed Not Available Not Available Not Available amoxicillin 875 mg tablet TAKE 1 TABLET [...] TAKE 1 TABLET BY MOUTH TWICE DAILY 2024 active Not Available Not Available Not Avai lable amoxicillin 875 mg-potassiu m clavulanate 125 mg [...] INHALE 1 PUFF BY MOUTH EVERY DAY 2024 active Not Available Not Available Not Avai lable Paxlovid 300 mg (150 mg x 2)-100 mg tablets in a dose pack TK 2 NIRMATREL VIR TS AND 1 RITONAVIR T TOGETHER PO BID FOR 5 DAYS 10/05 completed Not Available Not Available Not Available Zepbound 2.5 mg/0.5 mL subcutaneou s pen injector 2024 active Not Available Not Available Not Avai lable Vitals Date Recorded Body height Heart rate Oxygen saturation Oxygen saturation in Arterial blood by Pulse oximetry Systolic And Diastolic Provider Name and Address Organization Details Last Updated DateTime 5 172.72 cm 65 /min 99 % 99 % 130/86 mm[Hg] Mary Carbajal [facility] 5 10:13:29 Date Recorded Body height Body mass index (BMI) Body weight Heart rate Oxygen saturation Oxygen saturation in Arterial blood by Pulse oximetry Systolic And Diastolic Provider Name and Address Organization Details Last Updated DateTime 4 172.72 cm 32 kg/m2 97462.1 2 g 95 /min 96 % 96 % 128/78 mm[Hg] Mary Carbajal [facility] 4 14:40:13 Date Recorded Body height Provider Name an d Address Organization Details Last Updated DateTime 11/26/2024 172.72 cm Mary Carbajal [facility] 11/26/2024 13:42:08 Date Recorded Body height Body mass index (BMI) Body weight Heart rate Oxygen saturation Oxygen saturation in Arterial blood by Pulse oximetry Systolic And Diastolic Provider Name and Address Organization Details Last Updated DateTime 5 172.72 cm 32.7 kg/m2 79620.4 4 g 80 /min 98 % 98 % 120/80 mm[Hg] Mary Carbajal [facility] 5 16:14:39 Date Recorded Body height Body mass index (BMI) Body weight Systolic And Diastolic Provider Name and Address Organization Details Last Updated DateTime 06/14/2024 172.72 cm 32.2 kg/m2 44655.58 g 128/78 mm[Hg] Danielle Mora [facility] 06/14/2024 14:33:09 Social History Question Answer Notes LastModified by Organizat ion Details LastModified Time Tobacco Smoking Status Never Smoker Not Available [facility] 04/25/2020 03:36:24 What Was The Date Of Your Most Recent Tobacco Screening? 12/29/2024 [email or web address] Information not available 12/29/2024 Sex: Unknown Functional Status Question Answer Note [...] mcg/0.3 mL dose 0 completed Kirsten graf [facility] 04/25/2021 12:08:50 COVID-19, mRNA, LNP-S, PF, 30 mcg/0.3 mL dose 1 completed Kirsten graf [facility] 04/25/2021 12:08:56 COVID-19, mRNA, LNP-S, PF, 30 mcg/0.3 mL dose 1 completed Kirsten graf [facility] 04/25/2021 12:09:07 Influenza, split virus, quadrivalent, preservative 1 completed SEVERINO QUICK [address] [place], [address], [facility] 05/01/2021 15:46:54 zoster recombinant 2 completed SEVERINO QUICK [address] [place], [address], [facility] 05/27/2023 15:57:21 Past Encounters Encounter ID Performer Location Encounter Start Date Encounter Closed Date Diagnosis/Indication Diagnosis SNOMED-CT Code Diagnosis ICD10 Code Diagnosis IMO Codes Diagnosis Note [id number] Je Osullivan [facility] [address] [facility],[place] [address] 10/29/2017 14:30:52 10/29/2017 17:00:19 Patellofemoral stress syndrome 339856006 M22.2X9 Discussed weight loss, ice Gastroesop hageal reflux disease 573366451 K21.9 Appt with GI was reschedule d until November, cut back prilosec to 40 mg in am Essential hypertension 68691774 I10 stable [id number] Je Osullivan [facility] [address] [facility],[place] [facility] [place] [address] 03/27/2018 11:11:24 03/27/2018 11:44:58 Essential hypertension 89238768 I10 stable Acute sinusitis 06425214 J01.90 Headache 76852983 R51 Irritable bowel syndrome 09214432 K58.9 Asthma 831773446 J45.90 9 Gastroesop hageal reflux disease 998754229 K21.9 stable [id number] Je Osullivan [facility] [address] [facility], [place] [address] 07/29/2018 16:10:28 07/29/2018 16:52:30 Asthma 904151863 J45.909 Headache 82333632 R51 r/o trigeminal neuralgia Essential hypertension 83674002 I10 stable [id number] Je Osullivan [facility] [address] [facility], [employer] [facility] [place] [address] 05/12/2019 15:57:44 05/12/2019 16:29:40 Atypical chest pain 899661916 R07.89 continue care under cardio seems possible this could be muscular or costal chondritis , but advised to complete cardiac work up has tried otc pain relief without any noticeable difference Solitary n odule of lung 546881279 R91.1 due to repeat in may/ anuary Essential hypertension 30040862 I10 stable Asthma 500292869 J45.90 9 generally asx Gastroesop hageal reflux disease 114316265 K21.9 Active or passive immunization 275215129 Z23 [id number] eJ Osullivan [facility] [address] [facility],[place] [address] 11/09/2019 14:11:07 11/09/2019 15:15:09 Asthma 608859777 J45.909 stable Adult heal th examination 402329146 Z00.00 doing well working on increasing exercise [id number] Je Osullivan [facility] [address] [facility] [address],[place] [address] 01/15/2021 14:37:21 01/15/2021 15:39:51 Hypertensive disorder 38845358 I10 will increase dosage of medication Migraine 28362172 G43.90 9 will do full work up for migraine Neck pain 02806098 M54.2 will fu with neck XR [id number] Je Osullivan [facility] [address] [facility] [address],[place] [address] 02/28/2021 14:31:11 02/28/2021 15:07:45 Asthma 427686967 J45.909 stable Acute otitis media 90819 03 H65.01 will start on augmentin for ear infection Right uppe r quadrant pain 592130742 R10.11 [place] [id number] Je Osullivan [facility] [address] [facility] [address],[place] [address] 05/01/2021 15:24:30 05/01/2021 16:48:19 Active or passive immunization 989448879 Z23 up to date Adult heal examination 866110545 Z00.00 BP is excellent Iron defic iency anemia 80561280 D50.8 stable will continue to monitor [id number] Je Osullivan DO [facility] [address] [facility] [address],[place] [address] 08/15/2021 09:12:48 08/15/2021 16:23:34 Acute otitis media 3482362 H65.01 will start on augmentin for ear infection Vertigo 831981068 R42 continue at home treatment, avoid david maneuver until abx course is finished Maxillary sinus pain 301 325777 R51.0 due to infection of the right ear, start abx course [id number] Je Osullivan [facility] [address] [facility] [address],[place] [address] 09/10/2021 10:54:23 09/11/2021 16:02:58 Serous otitis media 45940285 H65.01 start on steroids, and fu with me before her trip to [place] > also start on once a day dio will hold starting on triamteren e-HTCZ and valium course until she needs it [id number] Je Osullivan [facility] [address] [facility] [address] [address] 05/07/2022 15:23:48 05/08/2022 08:52:09 Active or passive immunization 774864826 Z23 up to date Adult heal th examination 210641721 Z00.00 BP is excellent [id number] Je Osullivan [facility] [address] [facility], [place] [address] 06/26/2022 15:50:05 06/27/2022 12:09:27 Fracture of phalanx of finger 94479684 S62.664A following with ortho Concussion injury of brain 979655037 S06.0X0A will monitor itwill let me know if it doesn't improve Exudate on tonsils 29235 1008 J35.8 will fu with culture [id number] Je sOullivan [facility] [address] [facility],[place] [address] 10/08/2022 09:39:19 10/08/2022 16:35:21 Bacterial conjunctivitis 226309384 H10.013 will start on dual therapysta rt on keflex and tobradex Acute laryngitis 5175756 J04.0 stable; unlikely strep at this time but will monitor [id number] Je Osullivan [facility] [address] [facility] [address],[place] [address] 05/27/2023 15:25:05 05/27/2023 16:46:55 Active or passive immunization 838282890 Z23 up to date Adult heal th examination 166008368 Z00.00 BP is excellent Asthma 707623137 J45.20 stable Menopause 493060553 N95. 1 will start on paxil for the menopause symptoms which are significan t [id number] Je Osullivan [facility] [address] [facility] [address],[place] [address] 06/27/2023 09:07:09 06/27/2023 14:53:42 [id number] Je Osullivan [facility] [address] [facility] [address],[place] [address] 06/27/2023 11:26:13 06/27/2023 15:06:11 Menopause 794527043 N95.1 significan tly improved with addition of paxilwill continue on the 10 mg after discussion with patient Asthma 770233840 J45.20 stable [id number] Je Osullivan [facility] [address] [facility],[place] [address] 11/03/2023 14:24:42 11/04/2023 08:25:50 Depression screening 453890867 Z13.31 stable Easy bruising 289702105 R58 agreed to lab work for the easy bruising Abdominal pain 44940747 R10.9 will f/u with additional bloodwork [id number] Je Osullivan [facility] [address],[place] [address] 06/14/2024 14:22:36 06/14/2024 15:03:36 Adult health examination 455341541 Z00.00 BP is excellent [id number] Je Osullivan [facility] [address] [facility] [address],[place] [address] 10/05/2024 10:06:32 10/06/2024 11:54:31 Osteopenia 720766672 M85.80 will set up for bone density Bone spur of right hand 4228362873 30409 M25.741 right ring fingerno interventi on needed at this time Menopause 489221932 N95. 1 continue paxil doing much better [id number] Je Osullivna [facility] [address] [facility] [address],[place] [address] 11/26/2024 13:40:14 11/26/2024 16:14:52 Osteopenia 851915879 M85.852 26747336 will set up for bone density Body mass index 30+ - obesity 491789748 Z68.32 815870 will set up with zepbound 2.5 mgwill probably need PA Candidiasis of mouth 797 57928 B37.0 346933 will set updue to combo updraft use and recent strep throat [id number] Je Osullivan DO [facility] [address] [facility],[place] [address] 12/29/2024 15:49:05 12/31/2024 08:11:07 Spasm of muscle of lower back 5233963735 8013341 M62.830 5903188297 start on cyclobenza red Body mass index 30+ - obesity 006529677 Z68.32 362738 trying an online relator Health Concerns Section Related Observation LastModified by Organization Detai ls LastModified Time None Recorded Concern Status LastModified by Organization Details LastModified Time None Recorded Advance Directives Directive None Recorded Payers Insurance Date Sequence Insurance Name Policy Number Policy Matias Covered Member ID Matias Member ID Guarantor Name 10/19/2024 1 [id number] Doreen Gordon [id number] Doreen Gordon 10/19/2024 1 [employer] [facility] (EPO) [id number] Doreen Garth Gordon [id number] Doreen Gordon 12/27/2024 1 [employer] [facility] (PPO) [id number] Doreen Garth Gordon [id number] Doreen Gordon Notes Date Note Type Note Provider Name a nd Address Organization Details Recorded Time 4 text/html ROS as noted in the HPI c/o abnormal bruising the patient reports that [...] changes, weight loss, or any other abnormal KEVIN TRYBA, PA [address] [place], [address], [facility] 11/03/2023 15:03:19 4 text/html Annual WellnessReported by PatientSocial/Behavio ral HistoryFor diet and nutrition, patient reportshealthy diet,discussed vitamin and supplement use,discussed portion control,discussed maintaining calcium balance, anddiscussed diet improvement. For fracture risk, patient reportsno history of fractures,no recent explained fracture,no sudden unexplained fractures, andno previous musculoskeletal injuries. For physical activity, patient reportsexercises on a regular basis,recent increase in physical activity, andgood physical condition. For additional lifestyle factors, patient reportsno tobacco use,no alcohol intake, andstopped drinking alcohol.Mental Status:For depression risk, patient reportsnever feels sad, empty, or tearful,no loss of interest in activities,no significant changes in weight,no sleep disturbances or insomnia,no agitation,no loss of energy,no feelings of worthlessness or guilt,no thoughts of suicide,no history of depression, andno history of mood disorders.Functional AbilityFor hearing, patient reportsno loss of hearing. For vision, patient reportsno vision problems.ROS as noted in the HPI SEVERINO QUICK [address] [place], [address], [facility] 06/14/2024 15:02:03 5 text/html ROS as noted in the HPI c/o lump on the finger the patient [...] continue on this dose SEVERINO QUICK [address] [place], [address], [facility] 10/05/2024 10:33:46 5 text/html ROS as noted in the HPI f/u bone density the patient and I reviewed the bone density testthe patient reports that she is still having intermittent right hip painosteopenia L femur and lumbar spinerecommended strength training and vitamin D the patient and I discussed weight loss medicationwhich would be helpful for her jointsher last BMI was 32.2 in ck on 11/26/24 was the patient is still doing metamucil which has been helpingthe patient and I discussed options BMI 32.5 and 214 lbs with recheckdiscussed options, no sig ramires estimate, all of the meds will most likely need a PA SEVERINO QUICK [address] [place], [address], [facility] 11/26/2024 14:14:05 5 text/html ROS as noted in the HPI f/u the patient having low back spasms, the patient woke up 4 weeks ago with a sharp shooting pain in the L side of her hip into her groin and down her legcould have sprained/pulled her muscle (gluteus group) with some lumbar radiculopathy symptomshas been improving but still notable after she sits for too longrecommended MSK relaxer, will try her on cyclobenzaprine working with an online company to get GLPrecommended certain programs that are legitimate will try that and see how it works out SEVERINO QUICK [address] [facility], [place], [address], [facility] 12/29/2024 16:48:44 OBGyn Episode No OBEpisode recorded.
--- OUTSIDE RECORDS SUMMARY | 2025-03-28 07:27 | XMS_ITS | Patient Health Record ---
Author Organization [facility] Address [address] [place] [address] Care Team Providers Care Protocol Officer Name Role Phone Je Osullivan Primary Care Provider Adam Rogers [phone] Allergies Allergen (clinical drug ingredient) Drug/Non Drug [...] Status Risk Notes Problem Colon cancer screening (852199778) Colon cancer screening (Z12.11) Active confirmed Problem 987081967 Irritable bowel syndrome with diarrhea (K58.0) Active confirmed Problem 481071753 Gastroesophageal reflux disease without esophagitis (K21.9) Active confirmed Problem 88435356 Hiatal hernia (K44.9) Active confirmed Problem 424465447 Esophageal spasm (K22.4) Active confirmed Problem 66042357 Irritable bowel syndrome with both constipation and [...] N/A Encounters Encounter Location Date Provider Diagnosis [facility] [address] [place] [address] 02/15/2025 Adam Champion Gastroesophageal ref lux disease [...] Provider Name:Adam Champion , 05/18/2025 07:30:00 AM, [address] [place] [address] , [place], [place], [phone], Insurance Providers Payer Name Payer Address Payer Phone Subscriber Number Group Number Insured Name Patient Relationship to Insured Coverage Start Date Coverage End Date [employer] [address] [address] [place] [address] [id number] GENO RAO Self - patient is the insured Medical (General) History Medical History History ICD Code Asthma Denies RI,DM,CVA,renal disease GERD- upper GI series in 2 [...] Surgery Date(Month/Year) D & C x 2 Hustler teeth extraction
--- NOTE | 2025-03-28 07:30 | MHC.OFFVIS ---
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 Required: No Information Interpreted: non-clinical & clinical Lead Level Designer: Lead Level Designer Present (Darlyn EVERETT) Accompanied by: Self / Same As Patient Allergies fentanyl (FENTANYL) Allergy (Severe, Verified 03/28/25 07:34) NAUSEA AND VOMITING-SEVERE, nausea and vomiting meperidine (From DEMEROL) Allergy (Severe, Verified 03/28/25 07:34) SEVERE N/V Sulfa (Sulfonamide Antibiotics) (Sulfa (Sulfonamides)) Allergy (Mild, Verified 03/28/25 07:34) HIVES scopolamine (SCOPOLAMINE) Adverse Reaction (Severe, Verified 03/28/25 07:34) SEVERE BALANCE ISSUES Post menopausal: Yes HPI Comments Details: Presenting for annual exam. No complaints. Last Pap/HPV was negative in 12/10 Last Mammogram was BI-RADS 1 in 03/17 Last Colonoscopy was done in 03/07, the recommendation was to repeat in 10 years [facility] Medical History IBS (irritable bowel syndrome) GERD (gastroesophageal reflux disease) Asthma Hypertension Surgical History H/O dilation and curettage Family History Father Hypertension Father Heart abnormality Mother Alzheimer disease Social History Household Members: Significant Other Housing: House Alcohol intake: current Alcohol intake frequency: holidays/special occasions only Patient Tobacco Use Status: Never used Tobacco Current occupational status: employed 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[place] Sexual orientation: Straight/Heterosexual Gender identity: Female Female Reproductive History Menstrual Age of Menarche: 10 Menopause type: natural Date of Mammogram: 03/10/25 Review of Systems Const All systems reviewed & are unremarkable except as noted in HPI and below Card Reports as per HPI Resp Reports as per HPI GI Reports as per HPI and Reports no additional complaints Reports as per HPI Physical Exam Vital Signs: BMI result Body Mass Index 31.8 Const General: cooperative, healthy appearing and comfortable Chest Chest palpation & inspection: normal inspection of the chest and normal palpation of entire chest wall Breast/axilla inspection: normal inspection of the breasts and normal inspection of the axillae Breast/axilla palpation: normal palpation of the breasts, normal palpation of the axillae and no axillary lymphadenopathy Resp Effort & Inspection: normal respiratory effort Auscultation: clear to auscultation bilaterally Percussion: percussion normal Cardio Palpation: normal PMI Rate: regular rate Rhythm: regular rhythm Heart sounds: no murmurs and no rubs Peripheral pulses: Peripheral pulses 2+ throughout GI Inspection: Yes normal to inspection Palpation (GI): Soft to palpation, nontender, no guarding, not rigid and No hepatosplenomegaly present Percussion: Yes normal to percussion Auscultation: normal bowel sounds Rectal Exam - Female: deferred General: Yes bladder normal to palpation External Female Exam: No lesion Speculum Exam - Vagina: normal appearance of the vagina, normal palpation, normal vaginal discharge and not erythematous Speculum Exam - Cervix: normal appearance of the cervix and normal palpation Bimanual exam- vagina & uterus: normal bimanual exam, normal palpation, uterine size normal, bladder normal to palpation, consistency normal and normal palpation Bimanual Exam- Adnexa, other: normal adnexae, no masses and no tenderness Assessment & Plan Assessment & Plan (1) Well woman exam: Code(s): Z01.419 - Encounter for gynecological examination (general) (routine) without abnormal findings Category: Medical Plan: Co testing done. Counseled the patient about the recommended dietary allowance of 1200 mg of Calcium & 600 IU of vitamin D. Instructions given the patient to schedule next screening Mammogram in 03/18. The patient is scheduled with GI for screening colonoscopy . The patient was instructed to perform monthly self-breast exams and schedule annual exam in a year. All questions answered and the patient verbalized understanding. Coding Level of Care Code Est Pt Prev Care 40-64y(32100) Diagnoses Well woman exam Z01.419
[2025-03-28 07:32] VITALS: BMI 31.8
== END 2025-03-28 08:03 | disposition home or self-care (01) ==
LOC: HO.HWS 07:25
PROVIDERS: PCP Internal Medicine; Visit Provider Obstetrics & Gynecology
DX: Z01.419 Encounter for gynecological examination (general) (routine) without abnormal findings (principal)
CPT/HCPCS: 99396; 99459

== ENCOUNTER 2025-05-18 06:28 | Day surgery (SDC) | payer OTHER, SELFPAY ==
[2025-05-16 14:06] VITALS: BMI 33.6
--- NOTE | 2025-05-17 09:09 | HO.ANESPROP2 ---
Documented by User: Tammie Gardner NP 05/17/25 09:10 HPI - Anesthesia Eval Consult details Narrative: 60yo F for Upper Endoscopy and Colonoscopy Anesthesia Pre-Procedure Meds Is the patient on any of the following meds?: GLP1/DPP4 PMFSH Active Problems Active Problems: All Active Problems Strep pharyngitis (Acute) Patellofemoral arthralgia of both knees (Acute) Fracture of proximal phalanx of digit of left hand (Acute) Avulsion fracture of middle phalanx of finger (Acute) Endocervical polyp (Acute) Edema (Acute) Slow pulse (Acute) Chest pain (Acute) Iron deficiency anemia (Chronic) Acute sinusitis (Acute) Postmenopausal bleeding (Acute) Well woman exam (Acute) Past Medical History Medical History Hiatal hernia IBS (irritable bowel syndrome) GERD (gastroesophageal reflux disease) Asthma Hypertension Family History Family History Father Hypertension Father Heart abnormality Mother Alzheimer disease Family history of problems with anesthesia: Yes Surgical History Surgical History H/O colonoscopy H/O dilation and curettage History of Problems with Anesthesia: Yes Social History Social History Household Members: Significant Other Housing: House Alcohol intake: current Alcohol intake frequency: holidays/special occasions only Patient Tobacco Use Status: Never used Tobacco Use of substances other than those prescribed or required for medical reasons: No Are you DNR?: No Advance Directives: No Advance Directives Information Provided: Yes Current occupational status: employed 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[place] Sexual orientation: Straight/Heterosexual Gender identity: Female Meds Allergies Allergy/AdvReac Type Severity Reaction Status Date / Time fentanyl (FENTANYL) Allergy Severe severe Verified 05/18/25 06:47 nausea and vomiting meperidine (From DEMEROL) Allergy Severe SEVERE N/V Verified 05/18/25 06:47 Sulfa (Sulfonamide Allergy Mild HIVES Verified 05/18/25 06:47 Antibiotics) (Sulfa (Sulfonamides)) scopolamine (SCOPOLAMINE) AdvReac Severe SEVERE Verified 05/18/25 06:47 BALANCE ISSUES Home Medications ?Medication ?Instructions ?Recorded ?Confirmed ?Last Taken ?Type atenolol 50 mg tablet 50 mg PO BID 11/29/20 05/18/25 04/05/22 07:00 History omeprazole 40 mg capsule,delayed 40 mg PO DAILY 11/29/20 05/18/25 Unknown History release albuterol sulfate 90 mcg/actuation 2 puff PO Q4H 11/08/21 05/18/25 Unknown History aerosol inhaler amlodipine 10 mg tablet 10 mg PO DAILY 11/08/21 05/18/25 04/05/22 07:00 History fluticasone furoate 100 1 inh inhalation DAILY 11/18/24 05/18/25 Unknown History mcg/actuation blister powder for inhalation (Arnuity Ellipta) tirzepatide 5 mg/0.5 mL 5 mg subcut QWEEK 03/28/25 05/18/25 Unknown History subcutaneous pen injector (Mounngozi) cetirizine 10 mg tablet (Zyrtec) 10 mg PO DAILY PRN allergies 05/16/25 05/18/25 Unknown History paroxetine HCl 10 mg tablet 10 mg PO DAILY 05/18/25 05/18/25 Unknown History Exam Height,Weight and Vital Signs: Height 5 ft 6 in Weight 94.529 kg Assessment and Plan Assessment Anesthesia Assessment: Chart Reviewed Final Anesthetic Review Family History of Problems with Anesthesia: Yes History of Problems with Anesthesia: Yes Documented by User: Amandeep Sheikh MD 05/18/25 07:21 [facility] Past Medical History Medical History Hiatal hernia IBS (irritable bowel syndrome) GERD (gastroesophageal reflux disease) Asthma Hypertension Functional capacity: independent ambulation Family History Family History Father Hypertension Father Heart abnormality Mother Alzheimer disease Surgical History Surgical History H/O colonoscopy H/O dilation and curettage Social History Social History Household Members: Significant Other Housing: House Alcohol intake: current Alcohol intake frequency: holidays/special occasions only Patient Tobacco Use Status: Never used Tobacco Use of substances other than those prescribed or required for medical reasons: No Are you DNR?: No Advance Directives: No Advance Directives Information Provided: Yes Current occupational status: employed 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[place] Sexual orientation: Straight/Heterosexual Gender identity: Female Meds Allergies Allergy/AdvReac Type Severity Reaction Status Date / Time fentanyl (FENTANYL) Allergy Severe severe Verified 05/18/25 06:47 nausea and vomiting meperidine (From DEMEROL) Allergy Severe SEVERE N/V Verified 05/18/25 06:47 Sulfa (Sulfonamide Allergy Mild HIVES Verified 05/18/25 06:47 Antibiotics) (Sulfa (Sulfonamides)) scopolamine (SCOPOLAMINE) AdvReac Severe SEVERE Verified 05/18/25 06:47 BALANCE ISSUES Home Medications ?Medication ?Instructions ?Recorded ?Confirmed ?Last Taken ?Type atenolol 50 mg tablet 50 mg PO BID 11/29/20 05/18/25 04/05/22 07:00 History omeprazole 40 mg capsule,delayed 40 mg PO DAILY 11/29/20 05/18/25 Unknown History release albuterol sulfate 90 mcg/actuation 2 puff PO Q4H 11/08/21 05/18/25 Unknown History aerosol inhaler amlodipine 10 mg tablet 10 mg PO DAILY 11/08/21 05/18/25 04/05/22 07:00 History fluticasone furoate 100 1 inh inhalation DAILY 11/18/24 05/18/25 Unknown History mcg/actuation blister powder for inhalation (Arnuity Ellipta) tirzepatide 5 mg/0.5 mL 5 mg subcut QWEEK 03/28/25 05/18/25 Unknown History subcutaneous pen injector (Mounngozi) cetirizine 10 mg tablet (Zyrtec) 10 mg PO DAILY PRN allergies 05/16/25 05/18/25 Unknown History paroxetine HCl 10 mg tablet 10 mg PO DAILY 05/18/25 05/18/25 Unknown History Exam Exam Date and Time: 05/18/25 Airway Loose/Missing/Broken Teeth: No Heart: normal Lungs: normal Other: normal Assessment and Plan Final Anesthetic Review NPO: Yes ASA Class: II Final Preanesthetic Review: No Changes in Pt Med Stat, Meds/Allgs Chart Reviewed, Consent Obtained/Reviewed and Anes Risks/Benef Reviewed Patient Risk: Intermediate Procedure Risk: Low Anesthetic Plan Anesthetic Plan: MAC: Disposition: Standard PACU
[2025-05-18 06:48] VITALS: BMI 31.3
[2025-05-18 07:13] VITALS: BP 133/70; PULSE 82; RESP 15; TEMP 37.2; O2SAT 98
[2025-05-18] MEDS: Lactated Ringers 1,000 ML 100 ML IVCONT (07:17)
[2025-05-18 08:47] VITALS: BP 113/50; PULSE 70; RESP 16; TEMP 36.4; O2SAT 98
--- NOTE | 2025-05-18 08:53 | PM.OP ---
Brief Operative Note Date of Service: 05/18/25 Pre-op diagnosis: GERD, Screening Post-op diagnosis: other (Hiatal hernia, Colon polyps) Procedure: EGD, Colonoscopy to the cecum and TI with bx/removal of polyps Surgeon: Adam Champion MD Anesthesia: MAC Was an Large Engine Assembler used for this Procedure?: No Estimated blood loss (mL): 2.0 Pathology: other (A. Polyps at 20cm) Condition: stable Disposition: PACU
[2025-05-18 09:02] VITALS: BP 113/67; PULSE 77; RESP 16; TEMP 36.3; O2SAT 98
--- NOTE | 2025-05-18 09:12 | OP_ITS ---
DATE OF SERVICE: 05/18/2025 SURGEON: Adam Champion MD INDICATIONS: The patient presents for evaluation of gastroesophageal reflux and colorectal cancer screening. Full consent has been obtained from her for this, including risks of bleeding and perforation. PREOPERATIVE DIAGNOSIS: POSTOPERATIVE DIAGNOSIS: PROCEDURE PERFORMED: ESTIMATED BLOOD LOSS: COMPLICATIONS: ANESTHESIA: Medication used, monitored anesthesia care. ASSISTANTS: SPECIMENS: PREOPERATIVE DIAGNOSES: Gastroesophageal reflux and colorectal cancer screening. POSTOPERATIVE DIAGNOSES: Gastroesophageal reflux and colorectal cancer screening, hiatal hernia, gastric polyps, colon polyps, diverticulosis, and internal hemorrhoids. PROCEDURES PERFORMED: Esophagogastroduodenoscopy and colonoscopy to the cecum, terminal ileum with biopsy and removal of polyps. DESCRIPTION OF PROCEDURE: The patient was placed in the left lateral decubitus position. The Olympus video gastroscope was passed in the posterior oropharynx and upper esophagus under direct vision. The scope was passed slowly to the distal esophagus. The gastroesophageal junction appeared normal at 30 cm. There was no sign of any esophagitis or Anderson esophagus. The scope entered the stomach. There was a fairly large hiatal hernia with the diaphragmatic indentation seen at approximately 36 cm. The hiatal hernia mucosa appeared normal other than some gastric polyps, which appeared to be very benign and hyperplastic. As the scope was being advanced to the pylorus, there was some looping of the scope. However, the pylorus was reached and the duodenum was cannulated to the 2nd and 3rd portions. The duodenum including the bulb appeared normal without mass or ulceration. The scope was withdrawn back in the stomach. The gastric antrum and body appeared normal with good peristalsis. The scope was retroflexed visualizing the proximal stomach carefully which appeared normal, other than hyperplastic appearing gastric polyps. There was no evidence of any mass or ulceration. The scope was straightened. The entire hiatal hernia was carefully inspected and appeared normal otherwise. The scope was withdrawn back to the esophagus. The esophageal mucosa appeared normal. The scope was withdrawn from the patient. She was turned around for the colonoscopy. The digital rectal exam revealed external hemorrhoids. The Olympus video pediatric colonoscope was entered into the rectum and advanced to the cecum with the assistance of abdominal wall pressure. Once in the cecum, I did identify normal-appearing cecal pouch with appendiceal orifice and a normal-appearing ileocecal valve. The terminal ileum was cannulated and appeared normal. Scope was withdrawn back in the colon. The entire cecum and ileocecal valve appeared normal. The scope was slowly withdrawn assessing all mucosal surfaces carefully. Preparation was excellent. At 20 cm, there were 2 flat less than 5 mm polyps, both of which were biopsied and removed with cold biopsy forceps. I did not visualize any other polyps, colitis, or angiodysplasia. There was a mild amount of sigmoid diverticulosis. In the rectum, scope was retroflexed visualizing internal hemorrhoids, but no other pathology. The rectal mucosa appeared normal. Scope was straightened and withdrawn from the patient. She tolerated both procedures well and she was returned to the recovery area in stable condition. IMPRESSION: 1. Hiatal hernia. 2. Small colon polyps. 3. Gastric polyps. 4. Diverticulosis. 5. Internal hemorrhoids. PLAN: The results of the biopsies will be checked. If the polyps are just hyperplastic, I would recommend a followup coloscopy in 10 years. If either one is a tubular adenoma, I would recommend a followup colonoscopy in 5 years. She was advised not to use any aspirin and NSAIDs for 1 week. She will continue her omeprazole 40 mg daily. Given the size of the hiatal hernia and the looping of the scope within the hernia initially, I shall order an eventual upper GI series to rule out any component of a paraesophageal hernia that might need surgical correction as she does describe occasional episodes of upper abdominal pain. I shall also check to make sure she has had a recent gallbladder ultrasound as the last one I had down from 2014 was negative for stones. She will see me for follow up depending upon these results. MD HUMA Snow/CIPRIANO / [id number] LUCY
== END 2025-05-18 09:14 | disposition home or self-care (01) ==
PROVIDERS: PCP Internal Medicine; Visit Provider Internal Medicine
PROC: (CPT 45380; principal; 2025-05-18 07:30)
DX: Z12.11 Encounter for screening for malignant neoplasm of colon (principal); K63.5 Polyp of colon; K57.30 Diverticulosis of large intestine without perforation or abscess without bleeding; K64.8 Other hemorrhoids; K58.9 Irritable bowel syndrome, unspecified; K21.9 Gastro-esophageal reflux disease without esophagitis; K44.9 Diaphragmatic hernia without obstruction or gangrene; K31.7 Polyp of stomach and duodenum; I10 Essential (primary) hypertension; J45.909 Unspecified asthma, uncomplicated; Z79.899 Other long term (current) drug therapy; Z79.51 Long term (current) use of inhaled steroids; Z79.85 Long-term (current) use of injectable non-insulin antidiabetic drugs; Z88.8 Allergy status to other drugs, medicaments and biological substances; Z88.2 Allergy status to sulfonamides
CPT/HCPCS: 45380; 43235; 88305; J2003; J2704

== ENCOUNTER 2025-06-07 10:54 | Outpatient (REF) | payer OTHER, SELFPAY ==
--- OUTSIDE RECORDS SUMMARY | 2025-05-18 02:30 | XMS_ITS ---
Author Organization [facility] Address [address] [place] [address] Care Team Providers Care Market Garden Worker Name Role Phone Je Osullivan Primary Care Provider Adam Rogers [phone] REASON FOR VISIT gerd,hiatal hernia,screening Encounters Encounter Location Date Provider Diagnosis [facility] Outpatient [address] [place] [phone] 05/18/2025 Adam Champion Plan Of Treatment No Information Progress Notes * SASKIA RAOB:1965 (60 yo F)Acc No.[id number]:05/18/2025 EGD and COL/MAC Patient: GENO BALDWIN Provider: Harvey Champion MD :1965 A ge:60 Y S ex:Female Date:05/18/2025 Address:[address] [place], [place] [phone] Pcp:Je Osullivan Subjective: * Chief Complaints: * G erd,hiatal hernia,screening * The named appointment provid er may or may not be the originator of this progress note, and it is not deemed complete until electronically signed by the appointment provider. Sign off status: Pending * Provider: Harvey Champion MD Date: 07/18/2024 Generated for Chel bradley/Kirstie/eTransmitting on: 08/08/2024 02:13 PM EST
--- NOTE | ~2025-06-07 | FL_ITS ---
EXAMINATION: XR UPPER GI SERIES WITH barium swallow CLINICAL INFORMATION: Hernia COMPARISON: Previous chest x-ray July 2019 TECHNIQUE: Patient was administered thin and thick barium and effervescent granules. Barium tablet was also administered. FINDINGS: Swallowing mechanism is normal. No aspiration or penetration. Esophageal motility is normal. There is a moderate sized mixed type esophageal hernia with hiatal and paraesophageal components. There is gastroesophageal reflux. There is temporary stasis of the barium tablet in the hernia. No mass, stricture or evidence of esophagitis. Stomach and duodenum are otherwise normal appearing. No fold thickening, mass, ulcer or stricture is seen. FLUOROSCOPY TIME: 1 minute 55 seconds DOSE AREA PRODUCT: 1921 uGy-m2 (microgray-meter squared) FL/FL upper GI w air w Ba Swallow IMPRESSION: Moderate-sized mixed type esophageal hernia with hiatal and paraesophageal components. Gastroesophageal reflux. Temporary stasis of barium tablet in the hernia. Electronically signed by: Stephanie Reddy MD 06/07/2025 12:39 PM [facility]
--- OUTSIDE RECORDS SUMMARY | 2025-06-07 14:13 | XMS_ITS | Patient Health Record ---
Author Organization [facility] Address [address] [place] [address] Care Team Providers Care Client Support Consultant Name Role Phone Je Osullivan Primary Care Provider Adam Rogers [phone] Allergies Allergen (clinical drug ingredient) Drug/Non Drug Allergy documented on EMR Reaction Allergy Type Onset Date Status fentanyl Fentanyl Unknown Drug Allergy Active Sulfa Unknown Drug Allergy Active Results Component Value Reference Range Notes Pathology (Not yet reviewed by provider) Interpretation: Performing Lab:[facility], [address] [place] [id number] Notes/Report: FL upper GI w air w Ba Swall ow (Not yet reviewed by provider) Interpretation: Performing Lab: Notes/Report: [address] [address] Fluoroscopy Report Signed Patient: Geno Gordon MR#: [id number] [birth year] : 1965 Acct:[id number] Age/Sex: 60 / F ADM Date: 06/07/25 Loc: HO.XRAY Attending Dr: Adam Champion MD Ordering Physician: Adam Champion MD Date of Service: 06/07/25 Procedure(s): FL upper GI w air w Ba Swallow Accession Number(s): [id number] cc: Je Osullivan MD; Adam Champion MD Reason for Exam: HERNIA EXAMINATION: XR UPPER GI SERIES WITH barium swallow CLINICAL INFORMATION: Hernia COMPARISON: Previous chest x-ray July 2019 TECHNIQUE: Patient was administered thin and thick barium and effervescent granules. Barium tablet was also administered. FINDINGS: Swallowing mechanism is normal. No aspiration or penetration. Esophageal motility is normal. There is a moderate sized mixed type esophageal hernia with hiatal and paraesophageal components. There is gastroesophageal reflux. There is temporary stasis of the barium tablet in the hernia. No mass, stricture or evidence of esophagitis. Stomach and duodenum are otherwise normal appearing. No fold thickening, mass, ulcer or stricture is seen. FLUOROSCOPY TIME: 1 minute 55 seconds DOSE AREA PRODUCT: 1921 uGy-m2 (microgray-meter squared) FL/FL upper GI w air w Ba Swallow IMPRESSION: Moderate-sized mixed type esophageal hernia with hiatal and paraesophageal components. Gastroesophageal reflux. Temporary stasis of barium tablet in the hernia. Electronically signed by: Stephanie Reddy MD 06/07/2025 12:39 PM [facility] Dictated By: Stephanie Reddy MD Signed By: <Electronically signed by Stephanie Reddy MD in OV> 06/07/25 1239 DD/ 1115 TD/TT: 06/07/25 1223 Service Advisor: ANKUSH Reason For Referral No Information Medications Medication SIG (Take, Route, Frequency, Duration) Notes Start Date End Date Status ZyrTEC Allergy 10 MG Tablet 1 tablet as needed Orally Once a day Active Atenolol 50 MG Tablet 1 tablet Orally Once a day 0 02/07/2015 Active Flonase 50 MCG/ACT Suspension 1 spray in each nostril Nasally Once a day 02/07/2015 Active Omeprazole 40 MG Capsule Delayed Release TK ONE C PO QD Oral; Duration: 90 Active amLODIPine Besylate 5 MG Tablet TK 1 T PO QD Oral; Duration: 90 Active Tirzepatide 2.5 MG/0.5ML Solution Auto-injector as directed Subcutaneous Active Immunizations Vaccine Route Administration Date Status Comme nts Influenza Unknown 03/09/2024 Administered Social History Social History Additional Details Category Social Info Options Details Miscellaneous: Marital status: 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 Section Notes: Nonsmoker; no sig alcohol Nonsmoker; no sig alcohol Nonsmoker; no sig alcohol Nonsmoker; no sig alcohol Problems Problem Type SNOMED Code ICD Code Onset Dates Problem Status W/U Status Risk Notes Problem Colon cancer screening (907926755) Colon cancer screening (Z12.11) Active confirmed Problem Epigastric pain (73864578) Epigastric abdominal pain (R10.13) Active confirmed Problem Irritable bowel syndrome with diarrhea (640237356) Irritable bowel syndrome with diarrhea (K58.0) Active confirmed Problem Gastroesophageal reflux disease without esophagitis (919977264) Gastroesophageal reflux disease without esophagitis (K21.9) Active confirmed Problem Hiatal hernia (53237714) Hiatal hernia (K44.9) Active confirmed Problem Esophageal spasm (94286311) Esophageal spasm (K22.4) Active confirmed Problem Irritable bowel syndrome (60356583) Irritable bowel syndrome with both constipation and [...] N/A Encounters Encounter Location Date Provider Diagnosis [facility] Outpatient [address] [place] [phone] 05/18/2025 Adam Champion [facility] [address] [place] [phone] 02/15/2025 Adam Champion Gastroesophageal ref lux disease without esophagitis K21.9 ; Irritable bowel syndrome K58.9 ; Hiatal hernia K44.9 and Colon cancer screening Z12.11 [facility] [address] [place] [phone] 05/22/2025 Adam Champion Hiatal hernia K44.9 and Epigastric abdominal pain R10.13 Assessments Encounter Date Diagnosis (ICD Code) Assessment [...] to keep you advised of her progress. 05/22/2025 Epigastric abdominal pain (ICD-10 - R10.13) 05/22/2025 Hiatal hernia (ICD-10 - K44.9) 02/15/2025 Hiatal hernia (ICD-10 - K44.9) Overall, [...] 02/15/2025 COLONOSCOPY 02/15/2025 CELIAC PANEL #10 02/07/2015 XR BARIUM SWALLOW-ESOPHAGUS 05/22/2025 XR GI SERIES 05/22/2025 Pathology 05/18/2025 FL upper GI w air w Ba Swallow 5 Future Test Test Name Order Date UPPER GI ENDOSCOPY 02/07/2015 COLONOSCOPY 02/07/2015 Insurance Providers Payer Name Payer Address Payer Phone Subscriber Number Group Number Insured Name Patient Relationship to Insured Coverage Start Date Coverage End Date [employer] [place] [address] [address] [place] [address] [id number] GENO GORDON Self - patient is the insured Medical (General) History Medical History History ICD Code Asthma Denies [place],DM,CVA,renal disease GERD- upper GI series in 2 [...] U/S in 2014 Surgical History Surgery Date(Month/Year) [place] teeth extraction D & C x 2
== END 2025-06-07 10:55 | disposition home or self-care (01) ==
LOC: HO.XRAY 10:54
PROVIDERS: PCP Internal Medicine; Visit Provider Internal Medicine
DX: K44.9 Diaphragmatic hernia without obstruction or gangrene (principal); R10.13 Epigastric pain
CPT/HCPCS: 74246

== ENCOUNTER → 2025-06-07 10:57 | Outpatient (BNV) | payer OTHER, SELFPAY | PROVIDERS: PCP Internal Medicine; Visit Provider Radiology Diagnostic Radiology | DX: K21.9 Gastro-esophageal reflux disease without esophagitis (principal); K44.9 Diaphragmatic hernia without obstruction or gangrene | CPT/HCPCS: 74246 ==

== ENCOUNTER 2025-06-09 07:04 | Outpatient (AMB) | payer OTHER, SELFPAY ==
--- OUTSIDE RECORDS SUMMARY | 2025-05-18 02:30 | XMS_ITS ---
Author Organization [facility] Address [address] [place] [address] Care Team Providers Care Measurement Department Chief Clerk Name Role Phone Je Osullivan Primary Care Provider Adam Rogers [phone] REASON FOR VISIT gerd,hiatal hernia,screening Encounters Encounter Location Date Provider Diagnosis [facility] Outpatient [address] [place] [phone] 05/18/2025 Adam Champion Plan Of Treatment No Information Progress Notes * SASKIA RAOB:1965 (60 yo F)Acc No.[id number]:05/18/2025 EGD and COL/MAC Patient: GENO BALDWIN Provider: Harvey Champion MD :1965 A ge:60 Y S ex:Female Date:05/18/2025 Address:[address] [place], [place] [phone] Pcp:Je Osullivan Subjective: * Chief Complaints: * G erd,hiatal hernia,screening * The named appointment provid er may or may not be the originator of this progress note, and it is not deemed complete until electronically signed by the appointment provider. Sign off status: Pending * Provider: Harvey Champion MD Date: 07/18/2024 Generated for Chel bradley/Kirstie/eTransmitting on: 08/10/2024 07:06 AM EST
--- NOTE | 2025-06-09 07:06 | AM.OFFWIN_ITS ---
Intake Vital Signs 06/09/25 07:07 Height 5 ft 6 in Weight 194 lb BMI 31.3 BP 114/78 Blood Pressure Location Rt brachial Position Sitting Pulse 79 Pulse Source Pulse Oximeter Pulse Oximetry (%) 95 Oxygen Delivery Method Room Air Intake Visit Reasons: EP eczema is flaring up badly Intake Note: Patient presents c/o eczema flare on her chest, arms & legs. Patient Tobacco Use Status: Never used Tobacco Allergies fentanyl (FENTANYL) Allergy (Severe, Verified 06/09/25 07:08) severe nausea and vomiting meperidine (From DEMEROL) Allergy (Severe, Verified 06/09/25 07:08) SEVERE N/V Sulfa (Sulfonamide Antibiotics) (Sulfa (Sulfonamides)) Allergy (Mild, Verified 06/09/25 07:08) HIVES scopolamine (SCOPOLAMINE) Adverse Reaction (Severe, Verified 06/09/25 07:08) SEVERE BALANCE ISSUES Medication List - Last Reconciled 06/09/25 by Katherine Rodriguez, ALVARO albuterol sulfate 90 mcg/actuation 2 puffs PO Q4H amlodipine 10 mg PO DAILY atenolol 50 mg PO BID cetirizine (Zyrtec) 10 mg PO DAILY PRN fluticasone furoate 100 mcg/actuation (Arnuity Ellipta) 1 inh inhalation DAILY omeprazole 40 mg PO DAILY paroxetine HCl 10 mg PO DAILY tirzepatide (Mounjaro) 5 mg subcut QWEEK HPI HPI Comments History of Present Illness Details 60-year-old female presents to the walk- in clinic with complaints of a diffuse pruritic rash for the past few days. Patient reports the rash is very itchy and erythematous, primarily involving the chest, anterior neck, bilateral upper and lower extremities. She has a history of eczema, currently followed by [facility], with her last significant flare approximately 10 years ago. 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 Denies fevers, chills, nausea, vomiting, or other systemic symptoms. No recent illness reported. Denies any changes to her Cosmetic products, Foods or Detergent - but reports Tues she had Barium Swallow procedure. [facility] Medical History (Updated 06/09/25 @ 07:18 by Katherine Rodriguez NP) Rash and nonspecific skin eruption Hiatal hernia IBS (irritable bowel syndrome) GERD (gastroesophageal reflux disease) Asthma Hypertension Surgical History H/O colonoscopy H/O dilation and curettage Family History Father Hypertension Father Heart abnormality Mother Alzheimer disease Social History Household Members: Significant Other Housing: House Alcohol intake: current Alcohol intake frequency: holidays/special occasions only Patient Tobacco Use Status: Never used Tobacco Current occupational status: employed 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[facility] [place] Sexual orientation: Straight/Heterosexual Gender identity: Female Female Reproductive History Menstrual Age of Menarche: 10 Review of Systems Const All systems reviewed & are unremarkable except as noted in HPI and below Physical Exam Vital Signs: Last Vital Signs Pulse 79 06/09/25 07:07 BP 114/78 06/09/25 07:07 Pulse Ox 95 06/09/25 07:07 Oxygen Delivery Method Room Air 06/09/25 07:07 BMI result Body Mass Index 31.3 Const General: no acute distress Nutritional Appearance: obese Orientation/consciousness: patient oriented x3 HEENT Head: Yes normocephalic General nose exam: Normal external nose present Face and sinus: Yes normal facial exam Skin Other: Diffuse erythematous, pruritic rash noted on chest, anterior neck, bilateral upper and lower extremities. Rash appears inflammatory without vesicles, pustules, drainage, crusting, or signs of secondary infection. No weeping or open lesions noted. Neuro General: patient oriented x3, gait normal and moves all extremities Psych Speech and movement: Normal speech and movement present Assessment & Plan Assessment & Plan (1) Rash and nonspecific skin eruption: Code(s): R21 - Rash and other nonspecific skin eruption Plan: Eczema flare (Atopic Dermatitis) ? likely acute exacerbation given history and distribution. Ordered Triamcinolone 0.5% cream to affected areas BID for 7?10 days, avoiding face and intertriginous areas. Continue OTC Sarna lotion PRN for pruritus Take Cetirizine or Benadryl Avoid hot showers; use lukewarm water and gentle, fragrance-free soaps. Avoid known triggers, harsh detergents, and scented products. Recommend follow-up with Dermatology for ongoing management and if symptoms persist or worsen. Return to clinic if rash spreads rapidly, becomes painful, shows signs of infection, or if systemic symptoms develop. Medications: New triamcinolone acetonide 0.5% 1 appl topical BID 15 grams 1RF R21 - Rash and other nonspecific skin eruption prednisone 50 mg PO DAILY 5 tabs 0RF 5 days R21 - Rash and other nonspecific skin eruption Coding Level of Care Code Est Pt Level 4 (75902) Diagnoses Rash and nonspecific skin eruption R21 Time Spent (min) 20
--- OUTSIDE RECORDS SUMMARY | 2025-06-09 07:06 | XMS_ITS | Patient Health Record ---
Author Organization [facility] Address [address] [place] [address] Care Team Providers Care Coding Compliance Specialist Name Role Phone Je Osullivan Primary Care Provider Adam Rogers [phone] Allergies Allergen (clinical drug ingredient) Drug/Non Drug Allergy documented on EMR Reaction Allergy Type Onset Date Status fentanyl Fentanyl Unknown Drug Allergy Active Sulfa Unknown Drug Allergy Active Results Component Value Reference Range Notes FL upper GI w air w Ba Swall ow (Not yet reviewed by provider) Interpretation: Performing Lab: Notes/Report: [facility] [address] [place] [address] Fluoroscopy Report Signed Patient: Geno Gordon MR#: [id number] [birth year] : 1965 Acct:[id number] Age/Sex: 60 / F ADM Date: 06/07/25 Loc: HO.GARDENIAAY Attending Dr: Adam Champion MD Ordering Physician: Adam Champion MD Date of Service: 06/07/25 Procedure(s): FL upper GI w air w Ba Swallow Accession Number(s): [id number] cc: Je Osullivan MD; Adam Champion MD [...] by: Stephanie Reddy MD 06/07/2025 12:[address] 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 Section Notes: Nonsmoker; no sig alcohol Nonsmoker; no sig alcohol Nonsmoker; no sig alcohol Nonsmoker; no sig alcohol Problems Problem Type SNOMED Code ICD Code Onset Dates Problem Status W/U Status Risk Notes Problem Colon cancer screening (328786591) Colon cancer screening (Z12.11) Active confirmed Problem Epigastric pain (28949565) Epigastric abdominal pain (R10.13) Active confirmed Problem Irritable bowel syndrome with diarrhea (699874094) Irritable bowel syndrome with diarrhea (K58.0) Active confirmed Problem Gastroesophageal reflux disease without esophagitis (722910434) Gastroesophageal reflux disease without esophagitis (K21.9) Active confirmed Problem Hiatal hernia (99314814) Hiatal hernia (K44.9) Active confirmed Problem Esophageal spasm (12378711) Esophageal spasm (K22.4) Active confirmed Problem Irritable bowel syndrome (13292434) Irritable bowel syndrome with both constipation and [...] N/A Encounters Encounter Location Date Provider Diagnosis [facility] [address] [place] [phone] 05/18/2025 Adam Champion [facility] [address] [place] [phone] 02/15/2025 Adam Champion Gastroesophageal ref lux disease without esophagitis K21.9 ; Irritable bowel syndrome K58.9 ; Hiatal hernia K44.9 and Colon cancer screening Z12.11 [facility] [address] [place] [phone] 05/22/2025 Adam Champion Hiatal hernia K44.9 and [...] [employer] [place] [address] [address] [place] [address] [id number] GENO GORDON Self - patient is the insured Medical (General) History Medical History History ICD Code Asthma Denies [place],DM,CVA,renal disease GERD- upper GI series in 2 [...] U/S in 2014 Surgical History Surgery Date(Month/Year) [place] teeth extraction D & C x 2
--- OUTSIDE RECORDS SUMMARY | 2025-06-09 07:06 | XMS_ITS | Data Portability ---
Author Organization [facility], Telehealth Patient Home Address [address] [place] [address] Assessment No assessment recorded. Plan of Treatment Reminders Order Date Submit Date Provider Last Modified By Organization Details Last Modified Time Details Appointments ANNUAL EXAM 2025 01:30P M SEVERINO QUICK Not available Not available Not available Lab gamma-glu tamyl transfera se (ggt), serum 2023 024 [facility], [address] [place] [address], [id number], 11/03/2023 14:58:38 amylase + lipase, serum 2023 024 [facility], [address] [place] [address], [address], 11/03/2023 14:58:38 PT/PTT, plasma 2023 024 [facility], [address] [place] [address], [address], 11/03/2023 14:58:38 CBC w/ auto diff 2023 024 [facility], [address] [place] [address], [address], 11/03/2023 14:58:38 PT/INR 2023 024 [facility], [address] [place] [address], [address], 11/03/2023 14:58:38 protein C + protein S, functiona l panel, plasma 2023 024 [facility], [address] [place] [address], [address], 11/07/2023 11:19:29 CMP, serum or plasma 2023 024 [facility], [address] [place] [address], [address], 11/04/2023 11:27:03 iron + total iron-bind ing capacity (TIBC), serum 2023 024 [facility], [address] [place] [address], [address], 11/03/2023 14:58:38 ferritin, serum or plasma 2023 024 [facility], [address] [place] [address], [address], 11/03/2023 14:58:38 vitamin B12 + folate, serum or blood 2023 024 [facility], [address] [place] [address], [address], 11/03/2023 14:58:38 Referral None recorded. Procedures None recorded. Surgeries None recorded. Imaging bone density 2024 025 [facility], [address] [place] [address], [address], 10/19/2024 08:17:36 Medication Orders cyclobenz aprine 10 mg tablet 2024 025 [id number], [address], [place], [id number], 12/29/2024 16:30:17 nystatin 100,000 unit/mL oral suspensio n 2024 025 [facility] #[id number], [address], [place], [id number], 11/26/2024 14:12:20 Zepbound 2.5 mg/0.5 mL subcutane ous pen injector 2024 025 [facility] #[id number], [address], [place], [id number], 11/26/2024 14:09:05 Patient TargetsNo targets recorded. Patient InstructionsNo instructions recorded. Reason for Referral None Reported. Results Created Date Observation Date Name Description Value Unit Range Abnormal Flag Note LastModifiedBy Organization Detail LastModifiedTime 03/17/20 24 03/04/2024 MAMMO , scree lauren, digit al, bilat eral No observ ation record ed. [email or web address] [address] [place], [address], 03/19/2024 10:55:02 11/06/19 25 11/05/2024 bone densi ty No observ ation record ed. [email or web address] [address] [place], [address], 11/08/2024 14:54:29 03/14/20 25 03/10/2025 MAMMO , scree lauren, digit al, bilat eral No observ ation record ed. [email or web address] [address] [place], [address], 03/14/2025 14:20:21 06/07/20 25 06/07/2025 XR, upper gastr ointe cosmo l serie s No observ ation record ed. [email or web address] [facility] (Medical Records) [address] [place], [address], 06/07/2025 13:19:14 Result Notes None recorded. Problems Name Problem SNOMED Code Status Onset Date Resolution Date Notes Provider Name and Address Organization Details Recorded Time Asthma 520044514 [facility] 8 16:26:00 Gastroeso phageal reflux disease 648380915 [facility] 16:26:06 Essential hypertens ion 79933130 Active 2017 [facility] 8 16:26:14 Irritable bowel syndrome 99696505 Active 2017 [facility] 8 16:26:21 Hiatal hernia 50644923 Active 2018 KATIE Morgan [address] [place], [address], [facility] 9 16:17:32 COVID-19 310720973 Active 202006/27/20 Hedy Rivera [facility] 1 08:28:23 Atypical chest pain 418253726 Active 2021 SEVERINO QUICK [address] [place], [address], [facility] 2 15:51:21 Fracture of phalanx of finger 12995850 Active 2022 SEVERINO QUICK [address] [place], [address], [facility] 3 16:43:58 Concussio n injury of brain 902686439 Active 2022 SEVERINO QUICK [address] [place], [address], [facility] 3 16:44:44 Exudate on tonsils 161790462 Active 2022 SEVERINO QUICK [address] [place], [address], [facility] 3 16:47:58 Postconcu ssion syndrome 63065933 Active 2022 SEVERINO QUICK [address] [place], [address], [facility] 3 12:19:55 Bacterial conjuncti vitis 673982230 Active 2022 ESVERINO QUICK [address] [place], [address], [facility] 3 09:25:43 Asthmatic bronchiti s 460362375 Active 2022 Je Osullivan, DO [address] [place] [address], [address], [facility] 3 09:37:11 Candidias is of mouth 09760925 Active 2022 SEVERINO QUICK [address] [place] [address], [address], [facility] 5 14:11:53 Menopause Active 2022 SEVERINO QUICK [address] [place] [address], [address], [facility] 3 15:47:31 Easy bruising 857565962 Active 2023 SEVERINO QUICK [address] [place] [address], [address], [facility] 4 14:55:26 Abdominal pain 91439213 Active 2023 SEVERINO QUICK [address] [place] [address], [address], [facility] 4 14:55:55 Exacerbat ion of intermitt ent asthma 379954297 Active 2023 SEVERINO QUICK [address] [place] [address], [address], [facility] 4 09:31:54 Acute streptoco ccal pharyngit is Active 2023 SEVERINO QUICK [address] [place] [address], [address], [facility] 4 15:05:36 Osteopeni a 270025117 Active 2024 SEVERINO QUICK [address] [place], [address], [facility] 5 14:00:06 Bone spur of right hand 767297968981 101 Active 2024 SEVERINO QUICK [address] [place], [address], [facility] 5 10:25:46 Spasm of muscle of lower back 986071389104 72230 Active 2024 SEVERINO QUICK [address] [place], [address], [facility] 5 16:28:50 Notes:patient still has swati od (sees [employer] regularly) Problem Notes None recorded. Procedures Surgical History Date Name Laterality Status Provider Name and Address Organization Details Recorded Time 05/18/20 25 Colonoscopy completed Je Osullivan DO [address] [place], [address], [facility] 05/23/2025 06:37:07 Imaging Results None recorded. Procedure Notes None recorded. Medical Equipment None Reported. Allergies Allergen ID Allergen Name Allergen Category Reaction Reaction Severity Criticality Documentation Date Start Date Code Code System Note Provider Name and Address Organization Details Recorded Time 1233 Substance with sulfonami de structure and antibacte rial mechanism of action (substanc e) medicatio n Not available Not available Not available 10/28/2017 92916 8003 SNOMED Gris Landersbautista [facility] 8 16:25:38 1234 fentanyl medicatio n Not available Not available Not available 10/28/2017 4337 RxNorm Gris Garcia [facility] 8 16:25:49 Medications Name Sig [...] 2 PUFFS BY MOUTH EVERY 4 HOURS 2024 active Not Available Not Available Not Avai lable dicyclomine 10 mg capsule Take 1 capsule 3 times a day by oral route as needed. 05/12 completed Not Available Not Available Not Available atenolol 50 mg tablet TAKE 1 TABLET BY MOUTH TWICE DAILY 2024 active Not Available Not Available Not Avai lable amoxicillin 875 mg-potasskristenu m clavulanate 125 mg tablet TAKE 1 [...] Recorded Body height Heart rate Oxygen saturation Systolic And Diastolic Provider Name and Address Organization Details Last Updated DateTime 10/05/2024 172.72 cm 65 /min 99 % 130/86 mm[Hg] [facility] 10/05/2024 10:13:29 Date Recorded Body height Body mass index (BMI) Body weight Heart rate Oxygen saturation Systolic And Diastolic Provider Name and Address Organization Details Last Updated DateTime 4 172.72 cm 32 kg/m2 72580.1 2 g 95 /min 96 % 128/78 mm[Hg] [facility] 14:40:13 Date Recorded Body height Provider Name an d Address Organization Details Last Updated DateTime 11/26/2024 172.72 cm [facility] 11/26/2024 13:42:08 Date Recorded Body height Body mass index (BMI) Body weight Heart rate Oxygen saturation Systolic And Diastolic Provider Name and Address Organization Details Last Updated DateTime 07/09/202 5 172.72 cm 32.7 kg/m2 69815.4 4 g 80 /min 98 % 120/80 mm[Hg] Mary Carbajal [facility] 5 16:14:39 Date Recorded Body height Body mass index (BMI) Body weight Systolic And Diastolic Provider Name and Address Organization Details Last Updated DateTime 06/14/2024 172.72 cm 32.2 kg/m2 05155.58 g 128/78 mm[Hg] Danielle Mora [facility] 06/14/2024 14:33:09 Social History Question Answer Notes LastModified by Organizat ion Details LastModified Time Tobacco Smoking Status Never Smoker Not Available [employer] 04/25/2020 03:36:24 What Was The Date Of [...] dose 0 completed Kirsten graf [facility] 04/25/2021 12:08:50 COVID-19, mRNA, LNP-S, PF, 30 mcg/0.3 mL dose 1 completed Kirsten graf [facility] 04/25/2021 12:08:56 COVID-19, mRNA, LNP-S, PF, 30 mcg/0.3 mL dose 1 completed Kirsten graf [facility] 04/25/2021 12:09:07 Influenza, split virus, quadrivalent, preservative 1 completed SEVERINO QUICK [address] [place] [address], [address], [facility] 05/01/2021 15:46:54 zoster recombinant 2 completed SEVERINO QUICK [address] [facility], [place], [address], [facility] 05/27/2023 15:57:21 Past Encounters Encounter ID Performer Location Encounter Start Date Encounter Closed Date Diagnosis/Indication Diagnosis SNOMED-CT Code Diagnosis ICD10 Code Diagnosis IMO Codes Diagnosis Note [id number] Je Osullivan [facility] [address] [facility], [place] [address] 10/29/2017 14:30:52 10/29/2017 17:00:19 Patellofemoral stress syndrome 062869143 M22.2X9 Discussed weight loss, ice Gastroesop hageal reflux disease 458733466 K21.9 Appt with GI was reschedule d until November, cut back prilosec to 40 mg in am Essential hypertension 15157508 I10 stable [id number] Je Osullivan [facility] [address] [facility],[place] [address] 03/27/2018 11:11:24 03/27/2018 11:44:58 Essential hypertension 11099130 I10 stable Acute sinusitis 94709907 J01.90 Headache 36796023 R51 Irritable bowel syndrome 76466328 K58.9 Asthma 245376933 J45.90 9 Gastroesop hageal reflux disease 806435306 K21.9 stable [id number] Je Osullivan [facility] [address] [facility],[place] [address] 07/29/2018 16:10:28 07/29/2018 16:52:30 Asthma 282954920 J45.909 Headache 06312121 R51 r/o trigeminal neuralgia Essential hypertension 06852786 I10 stable [id number] Je Osullivan [facility] [address] [place] [address], [place] [address] 05/12/2019 15:57:44 05/12/2019 16:29:40 Atypical chest pain 106903810 R07.89 continue care under cardio seems possible this could be muscular or costal chondritis , but advised to complete cardiac work up has tried otc pain relief without any noticeable difference Solitary n odule of lung 697690209 R91.1 due to repeat in anuary Essential hypertension 49426398 I10 stable Asthma 875784722 J45.90 9 generally asx Gastroesop hageal reflux disease 877905241 K21.9 Active or passive immunization 885468981 Z23 [id number] Je Osullivan [facility] [address] [facility] [address],[place] [address] 11/09/2019 14:11:07 11/09/2019 15:15:09 Asthma 677911913 J45.909 stable Adult heal th examination 630425368 Z00.00 doing well working on increasing exercise [id number] Je Osullivan [facility] [address] [facility] [address],[place] [address] 01/15/2021 14:37:21 01/15/2021 15:39:51 Hypertensive disorder 97820733 I10 will increase dosage of medication Migraine 84177382 G43.90 9 will do full work up for migraine Neck pain 71685660 M54.2 will fu with neck XR [id number] Je Osullivan [facility] [address] [facility],[place] [address] 02/28/2021 14:31:11 02/28/2021 15:07:45 Asthma 410921944 J45.909 stable Acute otitis media 49443 03 H65.01 will start on augmentin for ear infection Right uppe r quadrant pain 506535181 R10.11 [place] [id number] Je Osullivan [facility] [address] [facility] [place] [place] [employer] [place] [address] 05/01/2021 15:24:30 05/01/2021 16:48:19 Active or passive immunization 277973932 Z23 up to date Adult heal th examination 984362961 Z00.00 BP is excellent Iron defic iency anemia 02323304 D50.8 stable will continue to monitor [id number] Je Osullivan [facility] [address] [facility],[place] [address] 08/15/2021 09:12:48 08/15/2021 16:23:34 Acute otitis media 7460664 H65.01 will start on augmentin for ear infection Vertigo 521854616 R42 continue at home treatment, avoid david maneuver until abx course is finished Maxillary sinus pain 301 582175 R51.0 due to infection of the right ear, start abx course [id number] Je Osullivan [facility] [address] [facility],[place] [address] 09/10/2021 10:54:23 09/11/2021 16:02:58 Serous otitis media 06393896 H65.01 start on steroids, and fu with me before her trip to [place] > also start on once a day sudafed will hold starting on triamteren e-HTCZ and valium course until she needs it [id number] Je Osullivan DO [facility] [address] [place] [address],[place] [address] 05/07/2022 15:23:48 05/08/2022 08:52:09 Active or passive immunization 628338033 Z23 up to date Adult heal th examination 405869564 Z00.00 BP is excellent [id number] Je Osullivan [facility] [address] [facility],[place] [address] 06/26/2022 15:50:05 06/27/2022 12:09:27 Fracture of phalanx of finger 80708749 S62.664A following with ortho Concussion injury of brain 352330728 S06.0X0A will monitor itwill let me know if it doesn't improve Exudate on tonsils 62753 1008 J35.8 will fu with culture [id number] Je Osullivan DO [facility] [address] [facility] [address] [place] [address] 10/08/2022 09:39:19 10/08/2022 16:35:21 Bacterial conjunctivitis 349678791 H10.013 will start on dual therapysta rt on keflex and tobradex Acute laryngitis 1898889 J04.0 stable; unlikely strep at this time but will monitor [id number] Je Osullivan [facility] [address] [facility],[place] [facility] [place] [address] 05/27/2023 15:25:05 05/27/2023 16:46:55 Active or passive immunization 697886080 Z23 up to date Adult heal th examination 922159106 Z00.00 BP is excellent Asthma 633297310 J45.20 stable Menopause 752497305 N95. 1 will start on paxil for the menopause symptoms which are significan t [id number] Je Osullivan [facility] [address] [facility] [address], [place] [place] [facility] [address] 06/27/2023 09:07:09 06/27/2023 14:53:42 [id number] Je Osullivan [facility] [address], [place] [place] [facility] [place] [address] 06/27/2023 11:26:13 06/27/2023 15:06:11 Menopause 361980474 N95.1 significan tly improved with addition of paxilwill continue on the 10 mg after discussion with patient Asthma 552090928 J45.20 stable [id number] Je Osullivan [facility] [address] [facility] [address], [place] [address] 11/03/2023 14:24:42 11/04/2023 08:25:50 Depression screening 805146634 Z13.31 stable Easy bruising 815391401 R58 agreed to lab work for the easy bruising Abdominal pain 67791599 R10.9 will f/u with additional bloodwork [id number] Je Osullivan [facility] [address] [facility] [address], [place] [place] [facility] [place] [address] 06/14/2024 14:22:36 06/14/2024 15:03:36 Adult health examination 361429374 Z00.00 BP is excellent [id number] [facility] [address] [facility], [place] [address] 10/05/2024 10:06:32 10/06/2024 11:54:31 Osteopenia 547009305 M85.80 will set up for bone density Bone spur of right hand 7239846625 35956 M25.741 right ring fingerno interventi on needed at this time Menopause 429184766 N95. 1 continue paxil doing much better [id number] Je Osullivan [facility] [address] [facility] [address], [place] [address] 11/26/2024 13:40:14 11/26/2024 16:14:52 Osteopenia 577581270 M85.852 76785471 will set up for bone density Body mass index 30+ - obesity 266498841 Z68.32 139420 will set up with zepbound 2.5 mgwill probably need PA Candidiasis of mouth 797 33121 B37.0 026400 will set updue to combo updraft use and recent strep throat [id number] Je Osullivan [facility] [address] [facility],[place] [address] 12/29/2024 15:49:05 12/31/2024 08:11:07 Spasm of muscle of lower back 8678846522 5028914 M62.830 6426865318 start on cyclobenza red Body mass index 30+ - obesity 243352743 Z68.32 495372 trying an online relator Health Concerns Section Related Observation LastModified by Organization Detai ls LastModified Time None Recorded Concern Status LastModified by Organization Details LastModified Time None Recorded Advance Directives Directive None Recorded Payers Insurance Date Sequence Insurance Name Policy Number Policy Matias Covered Member ID Matias Member ID Guarantor Name 10/19/2024 1 [employer] [id number] Doreen Gordon [id number] Doreen A Evan 10/19/2024 1 [employer] [facility] (EPO) [id number] Doreen Garth Gordon [id number] Doreen A Evan 12/27/2024 1 [employer] [facility] (PPO) [id number] Droeen Hagenjoie [id number] Doreen Gordon Notes Date Note Type [...] or any other abnormal SEVERINO QUICK [address] [place], [address], [facility] 11/03/2023 15:03:19 4 text/html [...] noted in the HPI SEVERINO QUICK [address] [place], [address], [facility] 06/14/2024 15:02:03 5 text/html ROS as noted [...] continue on this dose SEVERINO QUICK [address] [place], [address], [facility] 10/05/2024 10:33:46 5 text/html [...] her jointsher last BMI was 32.2 in [place] on 11/26/24 was the patient is still doing metamucil which has been helpingthe patient and I discussed options BMI 32.5 and 214 lbs with recheckdiscussed options, no sig ramires estimate, all of the meds will most likely need a SEVERINO ANDERSEN [address] [place], [address], [facility] 11/26/2024 14:14:05 5 text/html [...] how it works out SEVERINO QUICK [address] [facility], [place], [address], [facility] 12/29/2024 16:48:44 OBGyn Episode No OBEpisode recorded.
[2025-06-09 07:07] VITALS: BP 114/78; PULSE 79; O2SAT 95; BMI 31.3
== END 2025-06-09 07:35 | disposition home or self-care (01) ==
PROVIDERS: PCP Internal Medicine; Visit Provider Nurse Practitioner Family
DX: R21 Rash and other nonspecific skin eruption (principal)